=== PATIENT | female | born 1955 | race Caucasian/White ===

== ENCOUNTER 2016-02-08 00:54 | Inpatient (IN) | payer MEDICARE, OTHER ==
[2016-02-08] VITALS (36 sets, daily range): BP systolic 98–150; BP diastolic 56–85; PULSE 70–104; RESP 14–32; TEMP 97.3–98.9; O2SAT 84–96
[~2016-02-08] VITALS: Ht 157.5 cm; Wt 102.3 kg
[~2016-02-08 00:54] MED LIST: ABIL5TAB6 PO; ADVAI100I PO; ALPR-138 PO; APIX2.5T PO; ATOR40TA49 PO; DILA10IN IMPLANPUMP; DUONI NEB; ECOT81TA2 PO; FURO40TA PO; GABA600T PO; HYDRO50 PO; IPRA17I INH; ISOS30 PO; K-TA10TA5 PO; LEVA500T PO; ONDA4 PO; PERC10TA27 PO; PRED5TAB PO; PREG75 PO; PRIS50TA PO; PROM25TA5 PO; PROM6.257 PO; PROT40TA PO; VALA500T PO; Z.0.OXYGENDME NC
[2016-02-08] MEDS: RESP: ALBUTEROL 2.5 MG/IPRATROPIUM 0.5 MG NEB (SCH) INH ×3 (01:08→01:35)
[2016-02-08] MEDS ORDERED: methylPREDNISolone SOD SUCC 125 MG/2 ML VIAL IVP ONE (01:15)
[2016-02-08 01:33] LABS: CHLORIDE 101 MEQ/L (98-107); POTASSIUM 3.7 MEQ/L (3.5-5.1); SODIUM (NA) 143 MEQ/L (136-145)
[2016-02-08 01:34] LABS: AUTOMATED NEUTROPHIL # 7.1 TH/MM3 (1.8-7.7); BASOPHIL # 0.1 TH/MM3 (0-0.2); BASOPHIL % 0.6 % (0.0-2.0); EOSINOPHIL # 0.1 TH/MM3 (0-0.4); HEMATOCRIT 44.8 % (35.0-46.0); HEMO FLAGS DIFF FINAL; LYMPH % 26.3 % (9.0-44.0); LYMPHOCYTE # 2.8 TH/MM3 (1.0-4.8); MEAN CELL VOLUME 84.7 FL (80.0-100.0); MEAN CORPUSCULAR HGB CONC 31.9 % (32.0-36.0); MONO % 5.8 % (0.0-8.0); NEUT % 66.3 % (16.0-70.0); PLATELET COUNT 259 TH/MM3 (150-450); RED BLOOD COUNT 5.28 MIL/MM3 (4.00-5.30); RED CELL DISTRIBUTION WIDTH 15.7 % (11.6-17.2); WHITE BLOOD COUNT 10.7 TH/MM3 (4.0-11.0)
[2016-02-08 01:37] LABS: ANION GAP 11 MEQ/L (5-15); BICARBONATE 31.2 MEQ/L (21.0-32.0); BLOOD UREA NITROGEN 10 MG/DL (7-18)
[2016-02-08 01:40] LABS: ALT (GPT) 43 U/L (10-53); AST (GOT) 34 U/L (15-37); GLOMERULAR FILTRATION RATE 61 ML/MIN (>89)
[2016-02-08 01:41] LABS: TOTAL BILIRUBIN ADULT 0.5 MG/DL (0.2-1.0)
[2016-02-08 01:42] LABS: ALKALINE PHOSPHATASE 94 U/L (45-117)
[2016-02-08 01:48] LABS: BLOOD GAS BASE EXCESS 5.2 mmol/L (-2-2); BLOOD GAS CARBOXYHEMOGLOBIN 6.4 % (0-4); BLOOD GAS HCO3 31 mmol/L (22-26); BLOOD GAS O2 HGB SATURATION 82 % (90-100); BLOOD GAS OXYGEN CONTENT 15.9 Vol % (12.0-20.0); BLOOD GAS PCO2 63 mmHG (38-42); BLOOD GAS PO2 62 mmHG (61-120); BLOOD GAS TOTAL HGB 13.7 G/DL (12.0-16.0); CRITICAL VALUE YES; DRAW SITE LT RADIAL; LITER FLOW 2 L/M; OXYGEN DEVICE NASAL CANNULA; TEMP CORR TO 98.6
[2016-02-08 01:49] LABS: NUMBER OF ARTERIAL PUNCTURES 2; STAT YES; ULNAR PULSE PRESENT
[2016-02-08] MEDS ORDERED: FURO40TA PO (02:07)
[2016-02-08] MEDS ORDERED: ALPR.25 PO (02:07)
[2016-02-08] MEDS ORDERED: PRED5TAB PO (02:07)
[2016-02-08] MEDS ORDERED: HYDR50TA94 PO (02:07)
[2016-02-08] MEDS ORDERED: K-TA10TA PO (02:07)
[2016-02-08] MEDS ORDERED: ZOFR4TAB PO (02:07)
[2016-02-08] MEDS ORDERED: DILAUDID PUMP SQ/IV (02:07)
[2016-02-08] MEDS ORDERED: ADVA115A INH (02:07)
[2016-02-08] MEDS ORDERED: IPRA17I INH (02:07)
[2016-02-08] MEDS ORDERED: PRIS50TA PO (02:07)
[2016-02-08] MEDS ORDERED: PROM25TA5 PO (02:07)
[2016-02-08] MEDS ORDERED: PROM6.256 PO (02:07)
[2016-02-08] MEDS ORDERED: LYRI75CA PO (02:07)
[2016-02-08] MEDS ORDERED: ALBU0.08 NEB (02:07)
[2016-02-08] MEDS ORDERED: VALCYCLOVIR PO (02:07)
[2016-02-08] MEDS ORDERED: [UNRECOGNIZED DRUG - OTHER] NEB (02:07)
[2016-02-08] MEDS ORDERED: B-COINJ IM (02:07)
[2016-02-08] MEDS ORDERED: PROTONIX DR PO (02:07)
[2016-02-08] MEDS ORDERED: ABIL2TAB2 PO (02:07)
[2016-02-08] MEDS ORDERED: PLAV75TA29 PO (02:07)
[2016-02-08] MEDS ORDERED: GABA600T PO (02:07)
[2016-02-08] MEDS ORDERED: PERC10TA27 PO (02:07)
[2016-02-08] MEDS ORDERED: LIPI40TA PO (02:07)
--- NOTE | 2016-02-08 02:44 | PD ---
HPI Chief Complaint: Respiratory Distress Time Seen by Provider: 01:02 Travel History International Travel<30 days: No Contact w/Intl Traveler<30days: No Traveled to known affect area: No History of Present Illness HPI The patient is a 61-year-old female with a history of COPD who continues to smoke one pack a day who complains of increasing respiratory distress, shortness of breath tonight. She called an ambulance. She has a nebulizer machine at home but did not use it before calling an ambulance. She has oxygen at home at 2.5 L. She denies any fever. PFSH Past Medical History Arthritis: Yes (rheumatoid) Asthma: Yes Autoimmune Disease: Yes (Rheumatoid arthritis/fibromyalgia) Blood Disorders: No Anxiety: No Depression: Yes Heart Rhythm Problems: No Cancer: No Cardiac Catheterization: Yes Cardiovascular Problems: Yes (STENTS) High Cholesterol: No Chemotherapy: No Chest Pain: No Congestive Heart Failure: No COPD: Yes Coronary Artery Disease: Yes Diabetes: No Diminished Hearing: No Diverticulitis: Yes Deep Vein Thrombosis: Yes (RLE) Endocrine: No Fibromyalgia: Yes Gastrointestinal Disorders: Yes GERD: Yes Glaucoma: No Genitourinary: No Hepatitis: No Hiatal Hernia: Yes (REPAIRED) Hypertension: Yes Immune Disorder: Yes Implanted Vascular Access Dvce: Yes Medical other: Yes (RA/ FIBROMYALGIA) Musculoskeletal: Yes (OSTEOPENIA ) Neurologic: Yes (ANOXIC BRAIN INJURY R/T MEDS) Psychiatric: Yes Reproductive: No Respiratory: Yes (COPD) Immunizations Current: Yes Radiation Therapy: No Shingles: Yes Sickle Cell Disease: No Sleep Apnea: Yes (cpap) Thyroid Disease: No Ulcer: Yes PNEUMOCCOCAL Vaccine (Year): 1 ?: Not Menopausal: Yes : 1 Para: 1 Past Surgical History Abdominal Surgery: Yes (AHSAN FUNDOPLICATION) AICD: No Body Medical Devices: IMPLANTED dilaudid pain pump to right lower back area Cardiac Surgery: No Coronary Stent: Yes Ear Surgery: No Endocrine Surgery: No Eye Surgery: No Genitourinary Surgery: No Gynecologic Surgery: Yes (HYSTERECTOMY ) Hysterectomy: Yes (1998) Insulin Pump: No Joint Replacement: Yes (LEFT HIP) Neurologic Surgery: No Oral Surgery: Yes (T & A) Pacemaker: No Thoracic Surgery: No Tonsillectomy: Yes ( CHILD) Other Surgery: Yes Social History Alcohol Use: No Tobacco Use: Yes (1.5 PPD) Substance Use: No Allergies-Medications (Allergen,Severity, Reaction): Coded Allergies: Felodipine (Verified Allergy, Severe, 02/08/16) *MDRO Multi-Drug Resistant Organism (Verified Allergy, Mild, 02/08/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 Lopid (Verified Adverse Reaction, Severe, "DISORIENTED", 02/08/16) Morphine (Verified Adverse Reaction, Severe, VOMITING, 02/08/16) Reported Meds & Prescriptions Reported Meds & Active Scripts Active Reported Zofran (Ondansetron HCl) 4 Mg Tab 4 Mg PO Q6HR PRN Xanax (Alprazolam) 0.25 Mg Tab 0.25 Mg PO Q6H PRN Phenergan (Promethazine HCl) 25 Mg Tab 25 Mg PO Q6H PRN Promethazine-Codeine Liq 6.25-10 Mg/5 Ml Syrp 5 Ml PO Q6H PRN Atrovent HFA 12.9 GM Inh (Ipratropium Adger) 17 Mcg/Act Aer 2 Puff INH DAILY PRN [Ipsotropium] 1 Vial NEB PRN Albuterol Neb (Albuterol Sulfate) 2.5 Mg/3 Ml Neb 2.5 Mg NEB Q4HR NEB PRN [Valcyclovir] 500 Mg PO DAILY [Protonix Dr] 40 Mg PO DAILY Pristiq 24 HR (Desvenlafaxine ER 24 HR) 50 Mg Tab 50 Mg PO DAILY Prednisone 5 Mg Tab 5 Mg PO DAILY Percocet (Oxycodone-Acetaminophen) 10-325 mg Tab 1 Tab PO Q4H PRN Lyrica (Pregabalin) 75 Mg Cap 75 Mg PO DAILY Lipitor (Atorvastatin Calcium) 40 Mg Tab 40 Mg PO HS K-Tab (Potassium Chloride) 10 Meq Tab 10 Meq PO DAILY Hydroxyzine HCl 50 Mg Tab 50 Mg PO DAILY Gabapentin 600 Mg Tab 600 Mg PO DAILY Furosemide 40 Mg Tab 40 Mg PO BID PRN [Dilaudid Pump] 5.156 Mg SQ/IV DAILY Plavix (Clopidogrel Bisulfate) 75 Mg Tab 75 Mg PO DAILY Vitamin B-Complex Inj (B-Complex Vitamins Inj) 2-644-9-100-2 Mg/Ml Soln 1 Injection IM MONTHLY Advair Hfa 12 GM Inh (Fluticasone-Salmeterol 12 GM Inh) 115-21 Mcg/Act Aer 2 Puff INH BID Abilify (Aripiprazole) 2 Mg Tab 2 Mg PO DAILY Review of Systems Except as stated in HPI: all other systems reviewed are Neg Physical Exam Narrative GENERAL: The patient is alert but slightly confused. She is in moderate to severe respiratory distress. Her vital signs show heart rate of 104 with respirations 32 and oximetry 84%. SKIN: Warm and dry. HEAD: Atraumatic. Normocephalic. EYES: Pupils equal and round. No scleral icterus. No injection or drainage. ENT: No nasal bleeding or discharge. Mucous membranes pink and moist. NECK: Trachea midline. No JVD. CARDIOVASCULAR: Regular rate and rhythm. No murmur appreciated. RESPIRATORY: No accessory muscle use. Scattered wheezes are heard bilaterally. Breath sounds equal bilaterally. GASTROINTESTINAL: Abdomen soft, non-tender, nondistended. Hepatic and splenic margins not palpable. MUSCULOSKELETAL: No obvious deformities. No clubbing. No cyanosis. No edema. NEUROLOGICAL: Awake and alert. No obvious cranial nerve deficits. Motor grossly within normal limits. Normal speech. PSYCHIATRIC: Appropriate mood and affect; insight and judgment normal. Data Data Last Documented VS Vital Signs Date Time Temp Pulse Resp B/P Pulse Ox O2 Delivery O2 Flow Rate FiO2 02/08/16 02:26 104 28 123/63 94 Nasal Cannula 3 02/08/16 01:00 97.8 Orders Complete Blood Count With Diff (02/08/16 01:02) Comprehensive Metabolic Panel (02/08/16 01:02) B-Type Natriuretic Peptide (02/08/16 01:02) Arterial Blood Gas (Abg) (02/08/16 01:02) Urinalysis - C+S If Indicated (02/08/16 01:02) Iv Access Insert/Monitor (02/08/16 01:02) Electrocardiogram (02/08/16 01:02) Ecg Monitoring (02/08/16 01:02) Oximetry (02/08/16 01:02) Oxygen Administration (02/08/16 01:02) Chest, Pa & Lat (02/08/16 01:02) Sodium Chloride 0.9% Flush (Ns Flush) (02/08/16 01:15) Methylprednisolone So Succ Inj (Solumedr (02/08/16 01:15) Albuterol-Ipratropium Neb (Duoneb Neb) (02/08/16 01:15) Labs Laboratory Tests Test 02/08/16 02/08/16 01:15 01:35 White Blood Count 10.7 TH/MM3 Red Blood Count 5.28 MIL/MM3 Hemoglobin 14.3 GM/DL Hematocrit 44.8 % Mean Corpuscular Volume 84.7 FL Mean Corpuscular Hemoglobin 27.0 PG Mean Corpuscular Hemoglobin 31.9 % Concent Red Cell Distribution Width 15.7 % Platelet Count 259 TH/MM3 Mean Platelet Volume 7.4 FL Neutrophils (%) (Auto) 66.3 % Lymphocytes (%) (Auto) 26.3 % Monocytes (%) (Auto) 5.8 % Eosinophils (%) (Auto) 1.0 % Basophils (%) (Auto) 0.6 % Neutrophils # (Auto) 7.1 TH/MM3 Lymphocytes # (Auto) 2.8 TH/MM3 Monocytes # (Auto) 0.6 TH/MM3 Eosinophils # (Auto) 0.1 TH/MM3 Basophils # (Auto) 0.1 TH/MM3 CBC Comment DIFF FINAL Differential Comment Sodium Level 143 MEQ/L Potassium Level 3.7 MEQ/L Chloride Level 101 MEQ/L Carbon Dioxide Level 31.2 MEQ/L Anion Gap 11 MEQ/L Blood Urea Nitrogen 10 MG/DL Creatinine 0.94 MG/DL Estimat Glomerular Filtration 61 ML/MIN Rate Random Glucose 165 MG/DL Calcium Level 8.3 MG/DL Total Bilirubin 0.5 MG/DL Aspartate Amino Transf 34 U/L (AST/SGOT) Alanine Aminotransferase 43 U/L (ALT/SGPT) Alkaline Phosphatase 94 U/L B-Type Natriuretic Peptide 138 PG/ML Total Protein 6.6 GM/DL Albumin 3.4 GM/DL Blood Gas Puncture Site LT RADIAL Blood Gas Patient Temperature 98.6 Blood Gas HCO3 31 mmol/L Blood Gas Base Excess 5.2 mmol/L Blood Gas Oxygen Saturation 82 % Arterial Blood pH 7.32 Arterial Blood Partial 63 mmHG Pressure CO2 Arterial Blood Partial 62 mmHG Pressure O2 Arterial Blood Oxygen Content 15.9 Vol % Arterial Blood 6.4 % Carboxyhemoglobin Arterial Blood Methemoglobin 1.0 % Blood Gas Hemoglobin 13.7 G/DL Oxygen Delivery Device NASAL CANNULA Blood Gas Liter Flow 2 L/M MDM Medical Decision Making Medical Screen Exam Complete: Yes Emergency Medical Condition: Yes Medical Record Reviewed: Yes Interpretation(s) The chest x-ray shows no acute disease. The blood gases show pH 7.32, CO2 63, PO2 62 with O2 sat 82% on 2 L nasal cannula. These gases were done after the 3 DuoNeb treatments. The EKG shows sinus tachycardia with a rate of 102 with right bundle branch block and left anterior fascicular block. No acute ST elevation is present. Differential Diagnosis Pneumonia, COPD with acute exacerbation, bronchitis, hypoxemia, hypo-/ hyperglycemia, renal insufficiency, congestive heart failure, electrolyte disorder, anemia Narrative Course The patient appears to have COPD with acute exacerbation. It is now 0327 and the patient on 3 L nasal cannula is exhibiting saturations of 92%. I realize that some of the 92% is carboxyhemoglobin and this is a falsely high value. She is sleeping at this time comfortably. Physician Communication Physician Communication I discussed the patient with Dr. Reyes, the patient will be admitted to him here at [place]. Diagnosis Primary Impression: COPD with acute exacerbation Additional Impressions: Hypoxemia Tobacco abuse Admitting Information Admitting Physician Requests: Admit Edgar Toscano MD Feb 08, 2016 02:44
--- NOTE | 2016-02-08 03:00 | RADHPO ---
EXAM DATE/TIME: 02/08/2016 01:59 [place] COMPARISON: CHEST PA & LAT, November 24, 2015, 15:30. INDICATIONS : Short of breath. MEDICAL HISTORY : None. SURGICAL HISTORY : None. ENCOUNTER: Initial ACUITY: 1 day PAIN SCORE: Non-responsive. LOCATION: Bilateral chest FINDINGS: PA and lateral views of the chest demonstrate the lungs to be symmetrically aerated without evidence of mass, infiltrate or effusion. The cardiomediastinal contours are unremarkable. Osseous structure s are intact. CONCLUSION: No acute disease. Vito Diana MD on February 08, 2016 at 2:57 Board Certified Radiologist. This report was verified electronically.
[2016-02-08] MEDS ORDERED: ACETAMINOPHEN 325 MG TAB PO PRN (03:30)
[2016-02-08] MEDS ORDERED: ONDANSETRON HCL 4 MG/2 ML VIAL IV PUSH PRN (03:30)
[2016-02-08] MEDS: RESP: ALBUTEROL 2.5 MG/IPRATROPIUM 0.5 MG NEB (SCH) NEB ×6 (03:38→22:59)
[2016-02-08] MEDS ORDERED: RESP: ALBUTEROL 2.5 MG/IPRATROPIUM 0.5 MG NEB (SCH) INH ONE (05:15)
[2016-02-08 05:47] LABS: BLOOD, URINE NEG (NEG); GLUCOSE,URINE NEG (NEG); KETONE, URINE NEG (NEG); NITRITE,URINE NEG (NEG)
[2016-02-08 05:53] LABS: METHOD OF COLLECTION CLEAN CATCH; URINE COLOR YELLOW (YELLW/STRAW)
[2016-02-08 05:54] LABS: MUCUS URINE MOD /lpf (OCC); SQUAMOUS EPITHELIAL CELL URINE 0-5 /hpf (0-5)
[2016-02-08 05:55] LABS: WBC, URINE 0-2 /hpf (0-5)
[2016-02-08 05:57] LABS: COMMENT (UR) CULT NOT INDICATED; CULTURE IF INDICATED CULT NOT INDICATED
[2016-02-08] MEDS ORDERED: methylPREDNISolone SOD SUCC 125 MG/2 ML VIAL IV PUSH SCH (06:00)
[2016-02-08] MEDS ORDERED: MISCELLANEOUS NURSING INFORMATION XX SCH (07:30)
[2016-02-08] MEDS ORDERED: CHLORHEXIDINE GLUCONATE 2 % 1 PACK (2 CLOTHS) TOP PRN (07:30)
[2016-02-08 07:53] LABS: BLOOD GAS CARBOXYHEMOGLOBIN 3.7 % (0-4); BLOOD GAS HCO3 33 mmol/L (22-26); BLOOD GAS METHEMOGLOBIN 0.7 % (0-2); BLOOD GAS O2 HGB SATURATION 91 % (90-100); BLOOD GAS OXYGEN CONTENT 17.5 Vol % (12.0-20.0); BLOOD GAS PCO2 63 mmHg (38-42); BLOOD GAS PO2 75 mmHg (61-120); BLOOD GAS TOTAL HGB 13.7 G/DL (12.0-16.0)
[2016-02-08 07:54] LABS: CRITICAL VALUE YES; DRAW SITE LT RADIAL; FIO2 40 %; NUMBER OF ARTERIAL PUNCTURES 1; OXYGEN DEVICE BIPAP; STAT NO; ULNAR PULSE PRESENT; VENT SETTINGS IPAP 10/EPAP 5
[2016-02-08] MEDS: AZITHROMYCIN INJ 500 MG in SODIUM CHLOR 0.9% 250 ML INJ 250 ML IV SCH (08:29)
[2016-02-08] MEDS: PIPERACIL-TAZO 4.5 GM PREMIX 100 ML IV SCH ×3 (10:30→20:08)
[2016-02-08] MEDS: methylPREDNISolone SOD SUCC 125 MG/2 ML VIAL IV PUSH SCH ×2 (11:29→19:01)
--- NOTE | 2016-02-08 11:33 | HHI.HP ---
[facility] Primary Care Physician Negro Pretty, PhD, MD Admission Diagnosis COPD with acute exacerbation Diagnoses: (1) Acute on chronic respiratory failure with hypoxia and hypercapnia Diagnosis: Principal (2) Chronic obstructive pulmonary disease with acute exacerbation Diagnosis: Principal (3) Hypertension Diagnosis: Principal (4) Tobacco abuse Diagnosis: Secondary Chief Complaint: Shortness of breath and dyspnea Travel History International Travel<30 Days: No Contact w/Intl Traveler <30 Da: No Traveled to Known Affected Are: No History of Present Illness 61-year-old female rather complex medical history with chronic respiratory failure on home oxygen, chronic obstructive pulmonary disease, chronic tobacco use, hypertension, hyperlipidemia, history myocardial infarction , chronic pain, fibromyalgia who presented to hospital because of shortness of breath and dyspnea. Unable to obtain any information with the patient. She is wearing BiPAP for respiratory support. Minimal information from her with yes and no answers. Apparently last 3 days she has been having shortness of breath and dyspnea which progressively getting worse. She continued to smoke. She was using nebulizer and oxygen at home without any improvement. Patient came to the hospital for evaluation. Patient was found to have acute respiratory failure with hypoxia and hypercapnia. Patient was started on O2 supplementation , nebulizer treatments, Solu-Medrol. Patient without any significant improvement and simply has started on BiPAP for respiratory support. Patient was admitted to the ICU for continued management. Upon evaluating the patient this morning she is still requiring BiPAP for O2 supplementation. Graphic Coordinator has been consulted. Patient did not indicate that she has have any type of chest pain, abdominal pain, nausea, vomiting. She states that she has had a cough with phlegm production over the last 3 days which also has been progressively getting worse. Review of Systems ROS Limitations: Clinical Condition Constitutional: DENIES: Diaphoretic episodes, Fever, Chills Ears, nose, mouth, throat: DENIES: Vertigo, Nasal discharge, Throat pain, Ear Pain, Running Nose, Sinus Pain Respiratory: COMPLAINS OF: Cough, Shortness of breath Cardiovascular: DENIES: Chest pain, Lower Extremity Edema Gastrointestinal: DENIES: Abdominal pain, Black stools, Bloody stools, Constipation, Diarrhea, Nausea, Vomiting Past Family Social History Past Medical History Coronary artery disease status post coronary stenting COPD Diverticula is History of DVT Tobacco abuse Possibly IBS Fibromyalgia History of anoxic brain injury Chronic pain Rheumatoid arthritis History of DVT Depression Avascular necrosis of the hip Hyperlipidemia Hypertension Hypothyroidism Neuropathy Sjogren's syndrome Past Surgical History Hysterectomy Cecilio fundoplication Left hip surgery Pain pump in the right lower back Hysterectomy 1998 Left hip replacement Tonsils/adenoids Reported Medications Reported Meds & Active Scripts Active Reported Zofran (Ondansetron HCl) 4 Mg Tab 4 Mg PO Q6HR PRN Xanax (Alprazolam) 0.25 Mg Tab 0.25 Mg PO Q6H PRN Phenergan (Promethazine HCl) 25 Mg Tab 25 Mg PO Q6H PRN Promethazine-Codeine Liq 6.25-10 Mg/5 Ml Syrp 5 Ml PO Q6H PRN Atrovent HFA 12.9 GM Inh (Ipratropium Floweree) 17 Mcg/Act Aer 2 Puff INH DAILY PRN [Ipsotropium] 1 Vial NEB PRN Albuterol Neb (Albuterol Sulfate) 2.5 Mg/3 Ml Neb 2.5 Mg NEB Q4HR NEB PRN [Valcyclovir] 500 Mg PO DAILY [Protonix Dr] 40 Mg PO DAILY Pristiq 24 HR (Desvenlafaxine ER 24 HR) 50 Mg Tab 50 Mg PO DAILY Prednisone 5 Mg Tab 5 Mg PO DAILY Percocet (Oxycodone-Acetaminophen) 10-325 mg Tab 1 Tab PO Q4H PRN Lyrica (Pregabalin) 75 Mg Cap 75 Mg PO DAILY Lipitor (Atorvastatin Calcium) 40 Mg Tab 40 Mg PO HS K-Tab (Potassium Chloride) 10 Meq Tab 10 Meq PO DAILY Hydroxyzine HCl 50 Mg Tab 50 Mg PO DAILY Gabapentin 600 Mg Tab 600 Mg PO DAILY Furosemide 40 Mg Tab 40 Mg PO BID PRN [Dilaudid Pump] 5.156 Mg SQ/IV DAILY Plavix (Clopidogrel Bisulfate) 75 Mg Tab 75 Mg PO DAILY Vitamin B-Complex Inj (B-Complex Vitamins Inj) 2-107-0-100-2 Mg/Ml Soln 1 Injection IM MONTHLY Advair Hfa 12 GM Inh (Fluticasone-Salmeterol 12 GM Inh) 115-21 Mcg/Act Aer 2 Puff INH BID Abilify (Aripiprazole) 2 Mg Tab 2 Mg PO DAILY Allergies: Coded Allergies: Felodipine (Verified Allergy, Severe, 02/08/16) *MDRO Multi-Drug Resistant Organism (Verified Allergy, Mild, 02/08/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 Lopid (Verified Adverse Reaction, Severe, "DISORIENTED", 02/08/16) Morphine (Verified Adverse Reaction, Severe, VOMITING, 02/08/16) Family History No history of heart problems in the family Social History Continues to smoke 1-1/2 packs a day since she was a teenager, patient denies any alcohol or illicit drugs Physical Exam Vital Signs Vital Signs Date Time Temp Pulse Resp B/P Pulse Ox O2 Delivery O2 Flow Rate FiO2 02/08/16 09:55 94 Venturi Mask 6.00 50 02/08/16 07:40 92 40 02/08/16 07:00 96 14 103/66 88 02/08/16 07:00 Bi-Pap 40 02/08/16 06:30 92 30 02/08/16 06:25 Bi-Pap 30 02/08/16 06:04 98.7 102 24 138/77 89 02/08/16 06:00 97 02/08/16 05:50 87 Venturi Mask 40 02/08/16 05:28 100 20 137/73 96 Aerosol Mask 6 02/08/16 05:00 Venturi Mask 6.00 40 02/08/16 03:38 93 Nasal Cannula 3.00 02/08/16 02:26 104 28 123/63 94 Nasal Cannula 3 02/08/16 01:50 91 Nasal Cannula 2.00 02/08/16 01:15 104 32 107/68 92 Nasal Cannula 2.5 02/08/16 01:00 97.8 104 32 103/75 84 02/08/16 01:00 32 Physical Exam GENERAL: Well-developed, well-nourished, in no acute distress. alert and orientated HEENT: Head is normocephalic without any lesions or masses noted. Facial features are symmetric. Eyes: Pupils equal round reactive to light. Extraocular muscles are intact. Conjunctivae were clear. Patient is wearing BiPAP NECK: Supple without any masses. Trachea midline no deviation. No JVD, no bruits are appreciated CARDIAC: Regular rhythm, regular rate. S1/S2 are heard. No murmurs gallops or rubs. LUNGS: Coarse wheeze noted bilaterally, rhonchi or rales. No use of accessory muscles on inspiration or expiration. ABDOMEN: Soft, nontender. Nondistended. Bowel sounds heard in all 4 quadrants. No organomegaly or masses. Negative rebound, negative guarding EXTREMITIES: 2+ pitting edema noted bilateral lower extremities, pulses are equal bilaterally. No cyanosis or clubbing NEUROLOGY: Mood and affect appear appropriate. Cranial nerves II through XII grossly intact. Muscle strength 5/5 in upper and lower extremities bilaterally. Deep tendon reflexes are 2+ in upper and lower extremities bilaterally. Laboratory Laboratory Tests Test 02/08/16 02/08/16 02/08/16 02/08/16 01:15 01:35 05:25 05:30 White Blood Count 10.7 Red Blood Count 5.28 Hemoglobin 14.3 Hematocrit 44.8 Mean Corpuscular Volume 84.7 Mean Corpuscular Hemoglobin 27.0 Mean Corpuscular Hemoglobin 31.9 Concent Red Cell Distribution Width 15.7 Platelet Count 259 Mean Platelet Volume 7.4 Neutrophils (%) (Auto) 66.3 Lymphocytes (%) (Auto) 26.3 Monocytes (%) (Auto) 5.8 Eosinophils (%) (Auto) 1.0 Basophils (%) (Auto) 0.6 Neutrophils # (Auto) 7.1 Lymphocytes # (Auto) 2.8 Monocytes # (Auto) 0.6 Eosinophils # (Auto) 0.1 Basophils # (Auto) 0.1 CBC Comment DIFF FINAL Differential Comment Sodium Level 143 Potassium Level 3.7 Chloride Level 101 Carbon Dioxide Level 31.2 Anion Gap 11 Blood Urea Nitrogen 10 Creatinine 0.94 Estimat Glomerular Filtration 61 Rate Random Glucose 165 Calcium Level 8.3 Total Bilirubin 0.5 Aspartate Amino Transf 34 (AST/SGOT) Alanine Aminotransferase 43 (ALT/SGPT) Alkaline Phosphatase 94 B-Type Natriuretic Peptide 138 Total Protein 6.6 Albumin 3.4 Blood Gas Puncture Site LT RADIAL Blood Gas Patient Temperature 98.6 Blood Gas HCO3 31 Blood Gas Base Excess 5.2 Blood Gas Oxygen Saturation 82 Arterial Blood pH 7.32 Arterial Blood Partial 63 Pressure CO2 Arterial Blood Partial 62 Pressure O2 Arterial Blood Oxygen Content 15.9 Arterial Blood 6.4 Carboxyhemoglobin Arterial Blood Methemoglobin 1.0 Blood Gas Hemoglobin 13.7 Oxygen Delivery Device NASAL CANNULA Blood Gas Liter Flow 2 Magnesium Level 2.4 Urine Collection Type CLEAN CATCH Urine Color YELLOW Urine Turbidity CLEAR Urine pH 6.0 Urine Specific [place] 1.018 Urine Protein 30 Urine Glucose (UA) NEG Urine Ketones NEG Urine Occult Blood NEG Urine Nitrite NEG Urine Bilirubin NEG Urine Leukocyte Esterase NEG Urine WBC 0-2 Urine Squamous Epithelial 0-5 Cells Urine Amorphous Sediment Urine Hyaline Casts 3-5 Urine Mucus MOD Microscopic Urinalysis Comment CULT NOT INDICATED Test 02/08/16 07:45 Blood Gas Puncture Site LT RADIAL Blood Gas Patient Temperature 37.0 Blood Gas HCO3 33 Blood Gas Base Excess 7.0 Blood Gas Oxygen Saturation 91 Arterial Blood pH 7.34 Arterial Blood Partial 63 Pressure CO2 Arterial Blood Partial 75 Pressure O2 Arterial Blood Oxygen Content 17.5 Arterial Blood 3.7 Carboxyhemoglobin Arterial Blood Methemoglobin 0.7 Blood Gas Hemoglobin 13.7 Oxygen Delivery Device BIPAP Blood Gas Ventilator Setting IPAP 10/EPAP 5 Blood Gas Inspired Oxygen 40 Date/Time Procedure Status Source Growth 02/08/16 10:00 Legionella Antigen Received Urine Random Urine Pending 02/08/16 10:00 Streptococcus pneumoniae Antigen (M Received Urine Random Urine Pending 02/08/16 08:45 Influenza Types A,B Antigen (ELMER) - Final Complete Nasal Washing NEGATIVE FOR FLU A AND B ANTIGEN.... 02/08/16 08:45 Gram Stain Received Sputum Expectorated Sputum Pending 02/08/16 08:45 Sputum Culture Received Sputum Expectorated Sputum Pending Result Diagram: 02/08/16 0115 02/08/16 0115 Imaging Last Impressions Chest X-Ray 02/08/16 0102 Signed Impressions: Service Date/Time: Monday, February 08, 2016 01:59 - CONCLUSION: No acute disease. Vito Diana MD Assessment and Plan Assessment and Plan Acute on chronic hypoxic, hypercapnic respiratory failure secondary to chronic obstructive pulmonary disease in a patient who chronically smokes Continue O2 supplementation maintain O2 sats greater than 92% Currently patient is on BiPAP 15/5/35% Continue Solu-Medrol 60 mg IV every 6 hours Start antibiotics to include Zosyn, Zithromax for possible healthcare associated infection Patient does have history of Pseudomonas and Acinetobacter infections lung infections Continue nebulizer treatments every 4 hours and every 2 hours as needed Obtain sputum culture, influenza testing, Legionella testing, strep pneumonia testing Hypertension, coronary disease, history myocardial infarction Continue home medications History DVT It was indicated in November that the patient was on Eliquis at that time, however there is no indication that she is on that medication now. All studies that have been performed in this hospital do not indicate any documented or objective DVT Chronic pain, fibromyalgia Continue monitor patient's clinical status and resume medications when more clinically improved DVT prevention Subcutaneous heparin Written by Omi Toscano PA-C, acting as scribe for Dr. Galarza on 02/08/16 at 13:00. The documentation accurately reflects the work and decisions performed face-to- face by Dr. Galarza on 02/08/16 at 13:00. Physician Certification 2 Midnight Certification Type: Admission for Inpatient Services Order for Inpatient Services The services are ordered in accordance with Medicare regulations or non- Medicare payer requirements, as applicable. In the case of services not specified as inpatient-only, they are appropriately provided as inpatient services in accordance with the 2-midnight benchmark. Estimated LOS (days): 3 days is the estimated time the patient will need to remain in the hospital, assuming treatment plan goals are met and no additional complications. Post-Hospital Plan: Not yet determined Problem Qualifiers (1) Hypertension: Qualified Code: I15.9 - Secondary hypertension Omi Toscano Feb 08, 2016 11:33 Leticia Galarza MD Feb 08, 2016 13:56
[2016-02-08] MEDS: GABAPENTIN 300 MG CAP PO SCH (12:51)
[2016-02-08] MEDS: POTASSIUM CHLORIDE 10 MEQ CONTROLLED RELEASE TAB PO SCH (12:51)
[2016-02-08] MEDS: PREGABALIN 75 MG CAP PO SCH (12:52)
[2016-02-08] MEDS: ALPRAZolam 0.25 MG TAB PO PRN (12:52)
[2016-02-08] MEDS: PANTOPRAZOLE SOD 40 MG DELAYED RELEASE TAB PO SCH (12:52)
[2016-02-08] MEDS: CLOPIDOGREL 75 MG TAB PO SCH (12:52)
[2016-02-08] MEDS: ARIPiprazole 2 MG TAB PO SCH (13:24)
--- NOTE | 2016-02-08 16:22 | EKG ---
Date Performed: 02/08/2016 Time Performed: 01:24:44 PTAGE: 61 years EKG: Sinus tachycardia Left axis deviation RBBB Possible anteroseptal myocardial infarction-of u ndetermined age. Baseline artifact makes leads V2 to V4 difficult to interpret. Since previous tracin g 11/22/2015, no major change. Abnormal ECG PREVIOUS TRACING : 11/22/2015 19.28 DOCTOR: Jeremiah Diehl Interpretating Date/Time 02/08/2016 16:21:19
[2016-02-08] MEDS: ATORVASTATIN 40 MG TAB PO SCH (20:07)
[2016-02-08] MEDS: BUDESONIDE-FORMOTEROL 80/4.5 MCG INHALER INH SCH (20:07)
[2016-02-09] VITALS (34 sets, daily range): BP systolic 99–147; BP diastolic 52–88; PULSE 66–104; RESP 12–30; TEMP 97.7–98.5; O2SAT 88–96
[2016-02-09] MEDS: methylPREDNISolone SOD SUCC 125 MG/2 ML VIAL IV PUSH SCH ×4 (00:28→18:04)
[2016-02-09] MEDS: SODIUM CHLORIDE 0.9% FLUSH 5 ML FLUSH IVF PRN ×2 (00:28→06:26)
[2016-02-09] MEDS: CHLORHEXIDINE GLUCONATE 2 % 1 PACK (2 CLOTHS) TOP SCH (03:13)
[2016-02-09] MEDS: PIPERACIL-TAZO 4.5 GM PREMIX 100 ML IV SCH ×4 (03:38→21:31)
[2016-02-09] MEDS: RESP: ALBUTEROL 2.5 MG/IPRATROPIUM 0.5 MG NEB (SCH) NEB ×6 (04:20→22:45)
[2016-02-09 05:50] LABS: AUTOMATED NEUTROPHIL # 7.4 TH/MM3 (1.8-7.7); BASOPHIL % 0.1 % (0.0-2.0); HEMO FLAGS DIFF FINAL; LYMPH % 5.2 % (9.0-44.0); LYMPHOCYTE # 0.4 TH/MM3 (1.0-4.8); MEAN CELL VOLUME 85.3 FL (80.0-100.0); MEAN CORPUSCULAR HEMOGLOBIN 27.2 PG (27.0-34.0); MEAN CORPUSCULAR HGB CONC 31.9 % (32.0-36.0); MONO % 3.6 % (0.0-8.0); NEUT % 91.1 % (16.0-70.0); PLATELET COUNT 224 TH/MM3 (150-450); RED BLOOD COUNT 4.81 MIL/MM3 (4.00-5.30); RED CELL DISTRIBUTION WIDTH 15.5 % (11.6-17.2); WHITE BLOOD COUNT 8.1 TH/MM3 (4.0-11.0)
--- NOTE | 2016-02-09 05:55 | MB ---
cc: BABS BRICE M.D. DATE OF CONSULTATION 02/08/2016 REASON FOR CONSULTATION Acute respiratory failure, COPD exacerbation. HISTORY OF PRESENT ILLNESS Mrs. Willingham is a 61-year-old female with known history of severe COPD and obstructive sleep apnea for which she is using C-PAP therapy. The patient presents to the emergency room with increasing shortness of breath, cough small amount of whitish sputum. No fever, no chills, no hemoptysis. No TB or industrial exposure. Her breathing has been getting worse for about 3-4 days now. She denies history of hemoptysis, TB or previous industrial exposure. PAST MEDICAL HISTORY 1. COPD. 2. Previous DVT. 3. Irritable bowel syndrome. 4. Fibromyalgia. 5. Hypothyroidism. 6. Hypertension. 7. Hyperlipidemia. 8. Sj gren's syndrome. 9. Peripheral neuropathy. 10. Avascular necrosis of the hip. 11. Coronary artery disease, status post stent. PAST SURGICAL HISTORY 1. She had a previous left hip replacement. 2. T&A as a child. Hysterectomy. Fundoplication ALLERGIES FELODIPINE. LOPID. MORPHINE. MEDICATIONS 1. Xanax as needed. 2. Phenergan as needed. 3. Promethazine as needed. 4. Atrovent nebulizer. 5. Albuterol nebulizer. 6. Protonix. 7. Prestiq. 8. Prednisone. 9. Presently on IV steroids. 10. Percocet. 11. Lyrica. 12. Lipitor. 13. Hydroxyzine. 14. Gabapentin. 15. Lasix. 16. Plavix. 17. Advair twice daily. 18. Albuterol p.r.n. at home. FAMILY HISTORY Noncontributory. SYSTEMS REVIEW A 12-point review of systems as per HPI and Past History, otherwise negative. PHYSICAL EXAMINATION General: On the exam the patient is alert. Vital Signs: Temperature is 98, pulse 90, respirations 24, blood pressure 130/70, oxygen saturation 90%. HEENT: Exam unremarkable. Eyes without icterus. Neck: Without adenopathy or thyroid enlargement. Central trachea. Chest: Scattered rhonchi bilaterally. Cardiac Exam: PMI distant. S1-S2 audible. 1/6 ejection systolic murmur left sternal border. Abdomen: Obese, lax. Bowel sounds audible. Extremities: No clubbing, cyanosis or edema. Skin: Normal. No lymphadenopathy. LABORATORY DATA Chest x-ray - No acute infiltrate identified. Arterial blood gas - pH 7.34, pCO2 63, pO2 75. Sodium 143, potassium 3.9, BUN 10, creatinine 0.9. White count 10,000, hemoglobin 14, hematocrit 44. IMPRESSION 1. Acute on chronic respiratory failure. 2. Chronic obstructive pulmonary disease. 3. Obstructive sleep apnea. 4. Hypertension. 5. Hyperlipidemia. 6. Avascular necrosis of hip. 7. Rheumatoid arthritis. 8. Tobacco abuse. PLAN 1. The patient will be continued on oxygen therapy, bronchodilator therapy, BiPAP when sleeping will be given as well. 2. Her course will be followed in the Intensive Care setting and depending on progress, proceed accordingly. I do thank you for asking to partake in Mrs. Willingham's care. Sincerely, Babs Brice MD WWW/[facility] /3:49 PM /5:41 AM
[2016-02-09 05:58] LABS: POTASSIUM 4.1 MEQ/L (3.5-5.1)
[2016-02-09 06:01] LABS: BICARBONATE 32.8 MEQ/L (21.0-32.0); MAGNESIUM 2.6 MG/DL (1.5-2.5)
[2016-02-09] MEDS: AZITHROMYCIN INJ 500 MG in SODIUM CHLOR 0.9% 250 ML INJ 250 ML IV SCH (08:04)
[2016-02-09] MEDS: PANTOPRAZOLE SOD 40 MG DELAYED RELEASE TAB PO SCH (08:05)
[2016-02-09] MEDS: BUDESONIDE-FORMOTEROL 80/4.5 MCG INHALER INH SCH ×2 (08:05→21:31)
[2016-02-09] MEDS: GABAPENTIN 300 MG CAP PO SCH (08:05)
[2016-02-09] MEDS: CLOPIDOGREL 75 MG TAB PO SCH (08:05)
[2016-02-09] MEDS: ARIPiprazole 2 MG TAB PO SCH (08:05)
[2016-02-09] MEDS: POTASSIUM CHLORIDE 10 MEQ CONTROLLED RELEASE TAB PO SCH (08:05)
[2016-02-09] MEDS: PREGABALIN 75 MG CAP PO SCH (08:05)
[2016-02-09] MEDS: ALPRAZolam 0.25 MG TAB PO PRN ×3 (08:14→22:58)
[2016-02-09] MEDS ORDERED: INFLUENZA VIRUS VACCINE (QUADRIVALENT) 0.5 ML SYR IM ONE (10:00)
--- NOTE | 2016-02-09 10:36 | HHI.PR ---
Subjective Remarks Patient seen and examined today with Dr. Thomas, patient states that she is doing much better today. She openly admits that she hasn't been using her medications, oxygen, CPAP as she should at home. She is able to breathe better. She is down to 3 L oxygen. Did require BiPAP overnight. Patient is asking wishing go home. Notified her that that earliest 2448 hours Objective Vitals Vital Signs Date Time Temp Pulse Resp B/P Pulse Ox O2 Delivery O2 Flow Rate FiO2 02/09/16 07:46 88 Nasal Cannula 3.00 02/09/16 06:04 84 25 144/68 92 02/09/16 06:00 80 02/09/16 05:04 72 15 119/63 90 02/09/16 04:17 78 02/09/16 04:12 90 Nasal Cannula 4.00 02/09/16 04:04 98.0 68 24 109/64 90 02/09/16 03:04 66 12 107/58 91 02/09/16 02:04 78 16 112/65 91 02/09/16 02:00 78 02/09/16 01:30 93 35 02/09/16 01:04 74 15 99/62 91 02/09/16 01:00 90 Bi-Pap 35 02/09/16 00:15 Nasal Cannula 4.00 02/09/16 00:04 97.7 76 15 120/69 92 02/09/16 00:00 76 02/08/16 23:04 70 14 113/60 90 02/08/16 23:00 91 35 02/08/16 22:04 82 18 100/59 90 02/08/16 22:00 82 02/08/16 21:10 91 35 02/08/16 21:10 90 Bi-Pap 35 02/08/16 21:04 82 16 102/56 90 02/08/16 20:09 90 Nasal Cannula 4.00 02/08/16 20:00 92 02/08/16 20:00 97.3 88 25 100/64 89 02/08/16 19:20 90 Nasal Cannula 4.00 02/08/16 19:04 78 14 107/65 90 02/08/16 18:04 82 16 126/76 90 02/08/16 18:00 76 02/08/16 17:04 82 17 105/61 94 02/08/16 16:55 90 55 02/08/16 16:04 98.8 78 18 98/60 89 02/08/16 16:00 78 02/08/16 15:04 86 20 112/64 90 02/08/16 14:04 98 23 127/66 88 02/08/16 14:00 96 02/08/16 13:00 94 31 142/80 91 02/08/16 12:00 97.8 92 27 150/75 92 02/08/16 12:00 84 02/08/16 11:00 92 17 148/80 91 I/O 02/08/16 02/08/16 02/08/16 02/09/16 02/09/16 02/09/16 07:00 15:00 23:00 07:00 15:00 23:00 Intake Total 0 ml 1009 ml 650 ml 340 ml Output Total 200 ml 400 ml 300 ml 300 ml Balance -200 ml 609 ml 350 ml 40 ml Intake Oral 0 ml 480 ml 500 ml 240 ml IV Total 529 ml 150 ml 100 ml Output Urine Total 200 ml 400 ml 300 ml 300 ml # Voids 1 1 1 # Bowel Movements 0 0 0 Result Diagram: 02/09/16 0510 02/09/16 0510 Objective Remarks GENERAL: Well-developed, well-nourished, in mild respiratory distress. alert and orientated HEENT: Head is normocephalic without any lesions or masses noted. Facial features are symmetric. Extraocular muscles are intact. Conjunctivae were clear. NECK: Supple without any masses. Trachea midline no deviation. No JVD, CARDIAC: Regular rhythm, regular rate. S1/S2 are heard. No murmurs gallops or rubs. LUNGS: Significant coarse wheeze noted throughout the lungs. Patient is very short of breath and able to speak full sentences. No rhonchi or rales. No use of accessory muscles on inspiration or expiration. ABDOMEN: Soft, nontender. Nondistended. Bowel sounds heard in all 4 quadrants. No organomegaly or masses. Negative rebound, negative guarding EXTREMITIES: No edema, pulses are equal bilaterally. No cyanosis or clubbing NEUROLOGY: Mood and affect appear appropriate. Cranial nerves II through XII grossly intact. Moving all extremities, speech is clear Urinary Catheter: No Vascular Central Line Catheter: No A/P Assessment and Plan Acute on chronic hypoxic, hypercapnic respiratory failure secondary to chronic obstructive pulmonary disease in a patient who chronically smokes Continue O2 supplementation maintain O2 sats greater than 92% Currently on nasal cannula 3 L. Did require BiPAP 15/5/35% overnight Continue Solu-Medrol 60 mg IV every 6 hours Continue Zosyn, Zithromax for possible healthcare associated infection Patient does have history of Pseudomonas and Acinetobacter infections lung infections Continue nebulizer treatments every 4 hours and every 2 hours as needed Sputum culture is pending, Legionella testing, strep pneumonia testing are negative Patient continues to improve clinically, may be able to transfer out of ICU tomorrow Hypertension, coronary disease, history myocardial infarction Continue home medications History DVT It was indicated in November that the patient was on Eliquis at that time, however there is no indication that she is on that medication now. All studies that have been performed in this hospital do not indicate any documented or objective DVT Chronic pain, fibromyalgia Continue monitor patient's clinical status and resume medications when more clinically improved DVT prevention Subcutaneous heparin Written by Omi Toscano PA-C, acting as scribe for Dr. Thomas on at 0830. The documentation accurately reflects the work and decisions performed face-to- face by Dr. Thomas on 02/09/16 at 0830. Omi Toscano Feb 09, 2016 10:36
[2016-02-09] MEDS: NICOTINE 21 MG/24 HR PATCH TD SCH (16:22)
[2016-02-09] MEDS: ATORVASTATIN 40 MG TAB PO SCH (21:31)
[2016-02-10] VITALS (33 sets, daily range): BP systolic 131–165; BP diastolic 62–84; PULSE 72–100; RESP 13–29; TEMP 97.8–98.4; O2SAT 88–96
[2016-02-10] MEDS: SODIUM CHLORIDE 0.9% FLUSH 5 ML FLUSH IVF PRN ×2 (00:48→19:39)
[2016-02-10] MEDS: methylPREDNISolone SOD SUCC 125 MG/2 ML VIAL IV PUSH SCH ×4 (00:48→18:49)
[2016-02-10] MEDS: CHLORHEXIDINE GLUCONATE 2 % 1 PACK (2 CLOTHS) TOP SCH (00:48)
[2016-02-10] MEDS: PIPERACIL-TAZO 4.5 GM PREMIX 100 ML IV SCH ×4 (02:55→20:17)
[2016-02-10] MEDS: RESP: ALBUTEROL 2.5 MG/IPRATROPIUM 0.5 MG NEB (SCH) NEB ×6 (03:44→23:31)
[2016-02-10] MEDS: AZITHROMYCIN INJ 500 MG in SODIUM CHLOR 0.9% 250 ML INJ 250 ML IV SCH (08:00)
--- NOTE | 2016-02-10 08:39 | HHI.PR ---
Subjective Remarks Follow up respiratory failure. The patient states that she doesn't feel much better today. Still with dyspnea. Reporting pain "all over". Objective Vitals Vital Signs Date Time Temp Pulse Resp B/P Pulse Ox O2 Delivery O2 Flow Rate FiO2 02/10/16 07:16 92 Nasal Cannula 4.00 02/10/16 06:01 86 23 151/80 88 02/10/16 06:00 86 02/10/16 06:00 93 Nasal Cannula 3.00 02/10/16 05:01 72 13 145/74 94 02/10/16 04:20 Bi-Pap 35 02/10/16 04:01 88 18 138/70 95 02/10/16 04:00 88 02/10/16 03:59 95 35 02/10/16 03:01 98.0 76 24 154/76 96 02/10/16 03:00 93 Nasal Cannula 3.00 02/10/16 02:00 80 02/10/16 02:00 74 22 140/76 96 02/10/16 01:09 96 35 02/10/16 01:00 76 24 143/73 96 02/10/16 00:00 84 02/10/16 00:00 92 Bi-Pap 35 02/10/16 00:00 98.4 84 15 142/71 95 02/09/16 23:00 92 Bi-Pap 35 02/09/16 23:00 93 35 02/09/16 22:00 88 24 140/70 92 02/09/16 22:00 88 02/09/16 20:00 85 02/09/16 20:00 98.1 96 21 143/76 93 02/09/16 20:00 90 Nasal Cannula 4.00 02/09/16 19:47 93 Nasal Cannula 4.00 02/09/16 19:05 90 18 140/70 92 02/09/16 18:00 98 23 147/88 91 02/09/16 18:00 94 02/09/16 16:00 98.5 96 26 127/80 90 02/09/16 16:00 90 02/09/16 15:05 88 18 116/63 96 02/09/16 15:05 88 02/09/16 14:05 104 24 132/62 88 02/09/16 14:00 92 02/09/16 13:05 86 20 123/65 96 02/09/16 12:10 92 Nasal Cannula 4.00 02/09/16 12:05 98.5 84 18 119/66 93 02/09/16 12:00 88 02/09/16 11:04 94 30 116/57 90 02/09/16 10:04 92 27 110/61 90 02/09/16 10:00 90 02/09/16 09:04 96 17 119/60 88 I/O 02/09/16 02/09/16 02/09/16 02/10/16 02/10/16 02/10/16 06:59 14:59 22:59 06:59 14:59 22:59 Intake Total 340 ml 990 ml 740 ml 500 ml Output Total 300 ml 550 ml 450 ml 550 ml Balance 40 ml 440 ml 290 ml -50 ml Intake Oral 240 ml 480 ml 620 ml 400 ml IV Total 100 ml 510 ml 120 ml 100 ml Output Urine Total 300 ml 550 ml 450 ml 550 ml # Voids 1 2 2 # Bowel Movements 0 1 0 0 Result Diagram: 02/09/16 0510 02/09/16 0510 Imaging Last Impressions Chest X-Ray 02/08/16 0102 Signed Impressions: Service Date/Time: Monday, February 08, 2016 01:59 - CONCLUSION: No acute disease. Vito Diana MD Objective Remarks General: No acute distress. Heart: Regular rate and rhythm. No murmur. Lungs: Diffuse wheeze. Breathing is nonlabored. Abdomen: Soft, nontender, nondistended. Extremities: No lower extremity edema. Psych: Alert and oriented. Urinary Catheter: No Vascular Central Line Catheter: No A/P Problem List: (1) Acute on chronic respiratory failure with hypoxia and hypercapnia ICD Code: J96.21 Status: Acute (2) Chronic obstructive pulmonary disease with acute exacerbation ICD Code: J44.1 Status: Acute (3) Hypertension ICD Code: I10 Status: Chronic (4) Tobacco abuse ICD Code: Z72.0 Status: Chronic Assessment and Plan 1. Acute on chronic hypoxic, hypercapnic respiratory failure secondary to COPD: Appreciate pulmonology recommendations. Continue supplemental oxygen. Requiring BiPAP overnight. Continue Solu-Medrol, Zosyn, Zithromax. Continue bronchodilators. Sputum cultures pending. 2. Hypertension: Continue furosemide. 3. Coronary artery disease: Patient has history of [place]. Currently asymptomatic. Continue statin. 4. Chronic pain, fibromyalgia: Patient has Dilaudid pain pump. Add [place] as needed. 5. Questionable history of DVT: Patient had previously been documented as being on Eliquis, but is not currently taking that medication. There are no available imaging studies at this hospital to indicate history of DVT. 6. DVT prophylaxis: Subcutaneous heparin. Problem Qualifiers (1) Hypertension: Qualified Code: I15.9 - Secondary hypertension Omi Thomas MD Feb 10, 2016 08:39
[2016-02-10] MEDS: REMOVE OLD PATCH TD SCH (09:00)
[2016-02-10] MEDS: NICOTINE 21 MG/24 HR PATCH TD SCH (09:00)
[2016-02-10] MEDS: BUDESONIDE-FORMOTEROL 80/4.5 MCG INHALER INH SCH ×2 (09:00→19:38)
[2016-02-10] MEDS: ARIPiprazole 2 MG TAB PO SCH (09:35)
[2016-02-10] MEDS: POTASSIUM CHLORIDE 10 MEQ CONTROLLED RELEASE TAB PO SCH (09:36)
[2016-02-10] MEDS: PREGABALIN 75 MG CAP PO SCH (09:36)
[2016-02-10] MEDS: CLOPIDOGREL 75 MG TAB PO SCH (09:36)
[2016-02-10] MEDS: GABAPENTIN 300 MG CAP PO SCH (09:36)
[2016-02-10] MEDS: PANTOPRAZOLE SOD 40 MG DELAYED RELEASE TAB PO SCH (09:36)
[2016-02-10] MEDS: ALPRAZolam 0.25 MG TAB PO PRN ×2 (10:52→21:50)
[2016-02-10] MEDS ORDERED: ALPRAZolam 0.25 MG TAB PO ONE (13:00)
[2016-02-10] MEDS: ATORVASTATIN 40 MG TAB PO SCH (19:38)
[2016-02-10] MEDS: ACETAMINOPHEN/HYDROcodone 325 MG/5 MG TAB PO PRN (20:00)
[2016-02-10] MEDS: FUROSEMIDE 40 MG TAB PO PRN (20:00)
[2016-02-11] VITALS (40 sets, daily range): BP systolic 116–184; BP diastolic 69–113; PULSE 74–126; RESP 13–39; TEMP 97.5–98.7; O2SAT 88–96
[2016-02-11] MEDS: SODIUM CHLORIDE 0.9% FLUSH 5 ML FLUSH IVF PRN (00:31)
[2016-02-11] MEDS: methylPREDNISolone SOD SUCC 125 MG/2 ML VIAL IV PUSH SCH ×5 (00:31→23:26)
[2016-02-11] MEDS: CHLORHEXIDINE GLUCONATE 2 % 1 PACK (2 CLOTHS) TOP SCH (00:34)
[2016-02-11] MEDS: ACETAMINOPHEN/HYDROcodone 325 MG/5 MG TAB PO PRN ×5 (00:46→22:14)
[2016-02-11] MEDS: PIPERACIL-TAZO 4.5 GM PREMIX 100 ML IV SCH ×4 (03:00→20:24)
[2016-02-11] MEDS: RESP: ALBUTEROL 2.5 MG/IPRATROPIUM 0.5 MG NEB (SCH) NEB ×6 (03:52→23:13)
[2016-02-11] MEDS: ALPRAZolam 0.25 MG TAB PO PRN ×3 (04:25→23:27)
[2016-02-11 05:28] LABS: BASOPHIL # 0.1 TH/MM3 (0-0.2); BASOPHIL % 1.2 % (0.0-2.0); HEMATOCRIT 42.8 % (35.0-46.0); HEMO FLAGS DIFF FINAL; LYMPH % 3.4 % (9.0-44.0); LYMPHOCYTE # 0.4 TH/MM3 (1.0-4.8); MEAN CELL VOLUME 86.3 FL (80.0-100.0); MEAN CORPUSCULAR HEMOGLOBIN 27.5 PG (27.0-34.0); MEAN CORPUSCULAR HGB CONC 31.8 % (32.0-36.0); MONO % 1.9 % (0.0-8.0); NEUT % 93.5 % (16.0-70.0); PLATELET COUNT 190 TH/MM3 (150-450); RED BLOOD COUNT 4.95 MIL/MM3 (4.00-5.30); RED CELL DISTRIBUTION WIDTH 15.4 % (11.6-17.2); WHITE BLOOD COUNT 11.7 TH/MM3 (4.0-11.0)
[2016-02-11 05:38] LABS: POTASSIUM 4.3 MEQ/L (3.5-5.1)
[2016-02-11 05:41] LABS: BICARBONATE 31.5 MEQ/L (21.0-32.0)
--- NOTE | 2016-02-11 08:55 | HHI.PR ---
Subjective Remarks Follow up respiratory failure. The patient continues to have wheezing. She is still short of breath. Cough is nonproductive. Patient requesting something to "break it up". Objective Vitals Vital Signs Date Time Temp Pulse Resp B/P Pulse Ox O2 Delivery O2 Flow Rate FiO2 02/11/16 07:15 91 Nasal Cannula 4.00 02/11/16 07:01 96 27 154/86 89 02/11/16 06:01 92 18 156/74 91 02/11/16 06:00 88 02/11/16 05:02 85 16 144/75 94 02/11/16 04:45 92 Bi-Pap 35 02/11/16 04:01 97.5 82 26 135/69 93 02/11/16 04:00 92 Nasal Cannula 4.00 02/11/16 04:00 80 02/11/16 03:50 94 35 02/11/16 03:01 74 16 140/71 94 02/11/16 02:01 76 13 147/75 95 02/11/16 02:00 74 02/11/16 01:12 94 35 02/11/16 01:01 84 16 140/80 96 02/11/16 00:55 92 Bi-Pap 35 02/11/16 00:45 92 Nasal Cannula 4.00 02/11/16 00:00 78 02/11/16 00:00 95 Bi-Pap 35 02/11/16 00:00 98.7 78 25 153/78 94 02/10/16 22:00 84 18 133/80 96 02/10/16 22:00 84 02/10/16 21:53 96 35 02/10/16 21:40 92 Bi-Pap 35 02/10/16 21:00 92 18 131/83 91 02/10/16 20:00 98.0 100 22 165/71 92 02/10/16 20:00 84 02/10/16 20:00 92 Nasal Cannula 6.00 02/10/16 19:26 93 Nasal Cannula 6.00 02/10/16 19:00 96 29 153/84 92 02/10/16 18:00 89 02/10/16 18:00 94 17 154/71 93 02/10/16 17:00 98 21 140/75 93 02/10/16 16:48 97.9 98 24 164/76 93 02/10/16 16:00 92 Nasal Cannula 3.00 02/10/16 16:00 94 02/10/16 16:00 86 16 90 02/10/16 15:00 84 24 152/71 91 02/10/16 14:00 98 26 92 02/10/16 14:00 80 02/10/16 13:00 91 26 132/62 92 02/10/16 12:00 92 Nasal Cannula 3.00 02/10/16 12:00 83 02/10/16 12:00 97.8 83 24 132/62 91 02/10/16 11:00 96 20 142/74 91 02/10/16 10:52 24 02/10/16 10:01 80 29 138/70 91 02/10/16 10:00 97 02/10/16 09:00 85 24 135/65 90 I/O 02/10/16 02/10/16 02/10/16 02/11/16 02/11/16 02/11/16 07:00 15:00 23:00 07:00 15:00 23:00 Intake Total 500 ml 1250 ml 720 ml 220 ml Output Total 550 ml 800 ml 400 ml 400 ml Balance -50 ml 450 ml 320 ml -180 ml Intake Oral 400 ml 900 ml 620 ml 120 ml IV Total 100 ml 350 ml 100 ml 100 ml Output Urine Total 550 ml 800 ml 400 ml 400 ml # Voids 2 2 2 2 # Bowel Movements 0 1 0 0 Result Diagram: 02/11/16 0450 02/11/16 0450 Imaging Last Impressions Chest X-Ray 02/08/16 0102 Signed Impressions: Service Date/Time: Monday, February 08, 2016 01:59 - CONCLUSION: No acute disease. Vito Diana MD Objective Remarks General: No acute distress. Heart: Regular rate and rhythm. No murmur. Lungs: Diffuse wheeze. Breathing is nonlabored. Abdomen: Soft, nontender, nondistended. Extremities: No lower extremity edema. Psych: Alert and oriented. Urinary Catheter: No Vascular Central Line Catheter: No A/P Problem List: (1) Acute on chronic respiratory failure with hypoxia and hypercapnia ICD Code: J96.21 Status: Acute (2) Chronic obstructive pulmonary disease with acute exacerbation ICD Code: J44.1 Status: Acute (3) Hypertension ICD Code: I10 Status: Chronic (4) Tobacco abuse ICD Code: Z72.0 Status: Chronic Assessment and Plan 1. Acute on chronic hypoxic, hypercapnic respiratory failure secondary to COPD: Appreciate pulmonology recommendations. Continue supplemental oxygen. Still requiring BiPAP overnight. Continue Solu-Medrol, Zosyn, Zithromax. Continue bronchodilators. Sputum culture shows heavy growth normal respiratory gwen. Add Mucinex. 2. Hypertension: Continue furosemide. 3. Coronary artery disease: Patient has history of [place]. Currently asymptomatic. Continue statin. 4. Chronic pain, fibromyalgia: Patient has Dilaudid pain pump. Continue [place] as needed. 5. Questionable history of DVT: Patient had previously been documented as being on Eliquis, but is not currently taking that medication. There are no available imaging studies at this hospital to indicate history of DVT. 6. DVT prophylaxis: Subcutaneous heparin. Problem Qualifiers (1) Hypertension: Qualified Code: I15.9 - Secondary hypertension Omi Thomas MD Feb 11, 2016 08:55
[2016-02-11] MEDS: REMOVE OLD PATCH TD SCH (09:00)
[2016-02-11] MEDS: CLOPIDOGREL 75 MG TAB PO SCH (09:10)
[2016-02-11] MEDS: ARIPiprazole 2 MG TAB PO SCH (09:10)
[2016-02-11] MEDS: PANTOPRAZOLE SOD 40 MG DELAYED RELEASE TAB PO SCH (09:10)
[2016-02-11] MEDS: GABAPENTIN 300 MG CAP PO SCH (09:10)
[2016-02-11] MEDS: AZITHROMYCIN INJ 500 MG in SODIUM CHLOR 0.9% 250 ML INJ 250 ML IV SCH (09:10)
[2016-02-11] MEDS: PREGABALIN 75 MG CAP PO SCH (09:10)
[2016-02-11] MEDS: NICOTINE 21 MG/24 HR PATCH TD SCH (09:10)
[2016-02-11] MEDS: POTASSIUM CHLORIDE 10 MEQ CONTROLLED RELEASE TAB PO SCH (09:11)
[2016-02-11] MEDS: BUDESONIDE-FORMOTEROL 80/4.5 MCG INHALER INH SCH ×2 (09:12→20:23)
[2016-02-11] MEDS: guaiFENesin E.R. 600 MG TAB PO SCH ×2 (10:01→20:24)
[2016-02-11] MEDS: FUROSEMIDE 40 MG TAB PO PRN (18:04)
[2016-02-11] MEDS: ATORVASTATIN 40 MG TAB PO SCH (20:24)
--- NOTE | 2016-02-11 21:08 | HHI.PR ---
Subjective Remarks 61 YOWF with COPD,KARELY,RF SOB with any activity Smokes 1 1/2 PPD Uses CPAp at night Objective Vital Signs Vital Signs Date Time Temp Pulse Resp B/P Pulse Ox O2 Delivery O2 Flow Rate FiO2 02/11/16 19:50 91 Nasal Cannula 4.00 02/11/16 17:01 100 17 129/78 91 02/11/16 16:38 98.0 106 20 138/70 91 02/11/16 16:00 96 02/11/16 16:00 91 Nasal Cannula 3.00 02/11/16 15:01 100 18 116/70 93 02/11/16 14:01 106 24 157/88 93 02/11/16 14:00 88 02/11/16 13:20 94 20 161/82 92 02/11/16 13:01 100 17 179/91 91 02/11/16 12:10 106 21 171/83 91 02/11/16 12:01 126 26 184/113 88 02/11/16 12:00 99 Nasal Cannula 4.00 02/11/16 12:00 99 02/11/16 11:01 94 26 148/73 91 02/11/16 10:01 102 29 151/85 94 02/11/16 10:00 83 02/11/16 09:01 100 32 161/90 91 02/11/16 09:00 102 35 90 02/11/16 08:01 90 16 153/77 90 02/11/16 08:00 97.9 90 16 90 02/11/16 08:00 79 02/11/16 08:00 92 Nasal Cannula 4.00 02/11/16 07:15 91 Nasal Cannula 4.00 02/11/16 07:01 96 27 154/86 89 02/11/16 06:01 92 18 156/74 91 02/11/16 06:00 88 02/11/16 05:02 85 16 144/75 94 02/11/16 04:45 92 Bi-Pap 35 02/11/16 04:01 97.5 82 26 135/69 93 02/11/16 04:00 92 Nasal Cannula 4.00 02/11/16 04:00 80 02/11/16 03:50 94 35 02/11/16 03:01 74 16 140/71 94 02/11/16 02:01 76 13 147/75 95 02/11/16 02:00 74 02/11/16 01:12 94 35 02/11/16 01:01 84 16 140/80 96 02/11/16 00:55 92 Bi-Pap 35 02/11/16 00:45 92 Nasal Cannula 4.00 02/11/16 00:00 78 02/11/16 00:00 95 Bi-Pap 35 02/11/16 00:00 98.7 78 25 153/78 94 02/10/16 22:00 84 18 133/80 96 02/10/16 22:00 84 02/10/16 21:53 96 35 02/10/16 21:40 92 Bi-Pap 35 I/O 02/10/16 02/10/16 02/10/16 02/11/16 02/11/16 02/11/16 07:00 15:00 23:00 07:00 15:00 23:00 Intake Total 500 ml 1250 ml 720 ml 220 ml 785 ml Output Total 550 ml 800 ml 400 ml 400 ml 450 ml Balance -50 ml 450 ml 320 ml -180 ml 335 ml Intake Oral 400 ml 900 ml 620 ml 120 ml 460 ml IV Total 100 ml 350 ml 100 ml 100 ml 325 ml Output Urine Total 550 ml 800 ml 400 ml 400 ml 450 ml # Voids 2 2 2 2 2 # Bowel Movements 0 1 0 0 1 Result Diagram: 02/11/1644902/11/16449 Objective Remarks GENERAL: WBWN WF, mild to Mod SOB SKIN: Warm and dry. HEAD: Normocephalic. EYES: No scleral icterus. No injection or drainage. NECK: Supple, trachea midline. No JVD or lymphadenopathy. CARDIOVASCULAR: Regular rate and rhythm without murmurs, gallops, or rubs. RESPIRATORY: Breath sounds equal bilaterally. No accessory muscle use. Exp rhonchi GASTROINTESTINAL: Abdomen soft, non-tender, nondistended. MUSCULOSKELETAL: No cyanosis, or edema. BACK: Nontender without obvious deformity. No CVA tenderness. A/P Assessment and Plan Resp failure COPD KARELY Nicotine use HTN RA PLAN: BIPAP at night Aerosol nebs Symbicort 2 puffs bid Cont Abx Smoking cessation Lane Messer MD Feb 11, 2016 21:08
[2016-02-12] VITALS (33 sets, daily range): BP systolic 136–185; BP diastolic 78–114; PULSE 76–108; RESP 13–40; TEMP 97.3–98.7; O2SAT 88–95
[2016-02-12] MEDS: ACETAMINOPHEN/HYDROcodone 325 MG/5 MG TAB PO PRN ×4 (02:57→20:59)
[2016-02-12] MEDS: PIPERACIL-TAZO 4.5 GM PREMIX 100 ML IV SCH ×4 (03:02→20:33)
[2016-02-12] MEDS: RESP: ALBUTEROL 2.5 MG/IPRATROPIUM 0.5 MG NEB (SCH) NEB ×4 (03:13→20:07)
[2016-02-12] MEDS: CHLORHEXIDINE GLUCONATE 2 % 1 PACK (2 CLOTHS) TOP SCH ×2 (04:00→20:37)
[2016-02-12 05:10] LABS: AUTOMATED NEUTROPHIL # 9.2 TH/MM3 (1.8-7.7); BASOPHIL % 0.1 % (0.0-2.0); EOSINOPHIL % 0.1 % (0.0-4.0); HEMATOCRIT 39.4 % (35.0-46.0); HEMO FLAGS DIFF FINAL; LYMPH % 3.8 % (9.0-44.0); LYMPHOCYTE # 0.4 TH/MM3 (1.0-4.8); MEAN CELL VOLUME 84.9 FL (80.0-100.0); MEAN CORPUSCULAR HGB CONC 32.9 % (32.0-36.0); MONO % 2.1 % (0.0-8.0); NEUT % 93.9 % (16.0-70.0); PLATELET COUNT 193 TH/MM3 (150-450); RED BLOOD COUNT 4.64 MIL/MM3 (4.00-5.30); RED CELL DISTRIBUTION WIDTH 15.2 % (11.6-17.2); WHITE BLOOD COUNT 9.8 TH/MM3 (4.0-11.0)
[2016-02-12 05:20] LABS: POTASSIUM 3.9 MEQ/L (3.5-5.1)
[2016-02-12 05:23] LABS: BICARBONATE 36.3 MEQ/L (21.0-32.0)
[2016-02-12] MEDS: ALPRAZolam 0.25 MG TAB PO PRN ×3 (05:43→20:59)
[2016-02-12] MEDS: methylPREDNISolone SOD SUCC 125 MG/2 ML VIAL IV PUSH SCH ×3 (05:44→18:11)
[2016-02-12] MEDS: RESP: ALBUTEROL 1.25 MG/3 ML NEB (PRN) NEB ×2 (07:43→11:25)
[2016-02-12] MEDS: POTASSIUM CHLORIDE 10 MEQ CONTROLLED RELEASE TAB PO SCH (08:32)
[2016-02-12] MEDS: PREGABALIN 75 MG CAP PO SCH (08:32)
[2016-02-12] MEDS: PANTOPRAZOLE SOD 40 MG DELAYED RELEASE TAB PO SCH (08:32)
[2016-02-12] MEDS: CLOPIDOGREL 75 MG TAB PO SCH (08:32)
[2016-02-12] MEDS: guaiFENesin E.R. 600 MG TAB PO SCH ×2 (08:32→20:34)
[2016-02-12] MEDS: ARIPiprazole 2 MG TAB PO SCH (08:32)
[2016-02-12] MEDS: AZITHROMYCIN INJ 500 MG in SODIUM CHLOR 0.9% 250 ML INJ 250 ML IV SCH (08:33)
[2016-02-12] MEDS: GABAPENTIN 300 MG CAP PO SCH (08:34)
--- NOTE | 2016-02-12 08:40 | HHI.PR ---
Subjective Remarks Follow up respiratory failure. Patient states that she doesn't feel any better today. Still with dyspnea. Upper abdominal tightness/pain from coughing. Complaining of oral thrush and groin rash. Objective Vitals Vital Signs Date Time Temp Pulse Resp B/P Pulse Ox O2 Delivery O2 Flow Rate FiO2 02/12/16 07:45 94 Nasal Cannula 3.00 02/12/16 07:02 76 24 158/97 95 02/12/16 06:02 94 17 176/91 91 02/12/16 06:00 96 02/12/16 05:02 90 24 157/95 91 02/12/16 04:30 92 Nasal Cannula 4.00 Bi-Pap Humidified 02/12/16 04:05 93 35 02/12/16 04:01 97.3 84 32 166/89 94 02/12/16 04:01 84 02/12/16 04:00 95 Bi-Pap 35 02/12/16 03:47 82 24 168/88 95 02/12/16 03:47 82 02/12/16 03:11 95 Nasal Cannula 35 Bi-Pap 02/12/16 03:10 92 Nasal Cannula 3.00 02/12/16 03:01 92 02/12/16 03:01 92 40 182/94 94 02/12/16 02:01 84 13 166/89 94 02/12/16 02:01 84 02/12/16 01:01 88 15 167/78 95 02/12/16 00:25 93 35 02/12/16 00:03 98.7 100 21 166/95 93 02/12/16 00:00 98 02/12/16 00:00 96 Bi-Pap 35 02/11/16 23:01 94 23 176/91 93 02/11/16 22:01 96 19 162/69 91 02/11/16 22:00 100 02/11/16 21:01 104 19 175/85 91 02/11/16 20:01 97.8 92 39 162/86 93 02/11/16 20:00 92 Nasal Cannula 3.00 02/11/16 20:00 92 02/11/16 19:50 91 Nasal Cannula 4.00 02/11/16 19:01 94 22 169/80 92 02/11/16 17:01 100 17 129/78 91 02/11/16 16:38 98.0 106 20 138/70 91 02/11/16 16:00 96 02/11/16 16:00 91 Nasal Cannula 3.00 02/11/16 15:01 100 18 116/70 93 02/11/16 14:01 106 24 157/88 93 02/11/16 14:00 88 02/11/16 13:20 94 20 161/82 92 02/11/16 13:01 100 17 179/91 91 02/11/16 12:10 106 21 171/83 91 02/11/16 12:01 126 26 184/113 88 02/11/16 12:00 99 Nasal Cannula 4.00 02/11/16 12:00 99 02/11/16 11:01 94 26 148/73 91 02/11/16 10:01 102 29 151/85 94 02/11/16 10:00 83 02/11/16 09:01 100 32 161/90 91 02/11/16 09:00 102 35 90 I/O 02/11/16 02/11/16 02/11/16 02/12/16 02/12/16 02/12/16 07:00 15:00 23:00 07:00 15:00 23:00 Intake Total 220 ml 785 ml 485 ml 460 ml Output Total 400 ml 450 ml 700 ml 800 ml Balance -180 ml 335 ml -215 ml -340 ml Intake Oral 120 ml 460 ml 360 ml 360 ml IV Total 100 ml 325 ml 125 ml 100 ml Output Urine Total 400 ml 450 ml 700 ml 800 ml # Voids 2 2 # Bowel Movements 0 1 0 Result Diagram: 02/12/16 0418 02/12/16 0418 Imaging Last Impressions Chest X-Ray 02/08/16 010 Signed Impressions: Service Date/Time: Monday, February 08, 2016 01:59 - CONCLUSION: No acute disease. Vito Diana MD Objective Remarks General: No acute distress. Heart: Regular rate and rhythm. No murmur. Lungs: Diffuse wheeze. Breathing is nonlabored. Abdomen: Soft, nontender, nondistended. Extremities: No lower extremity edema. Psych: Alert and oriented. HEENT: Oral thrush noted. Urinary Catheter: No Vascular Central Line Catheter: No A/P Problem List: (1) Acute on chronic respiratory failure with hypoxia and hypercapnia ICD Code: J96.21 Status: Acute (2) Chronic obstructive pulmonary disease with acute exacerbation ICD Code: J44.1 Status: Acute (3) Hypertension ICD Code: I10 Status: Chronic (4) Tobacco abuse ICD Code: Z72.0 Status: Chronic (5) Oral thrush ICD Code: B37.0 Status: Acute Assessment and Plan 1. Acute on chronic hypoxic, hypercapnic respiratory failure secondary to COPD: Appreciate pulmonology recommendations. Continue supplemental oxygen. Still requiring BiPAP overnight. Continue Solu-Medrol, Zosyn, Zithromax, Mucinex. Continue bronchodilators. Sputum culture shows heavy growth normal respiratory gwen. 2. Hypertension: Continue furosemide. 3. Coronary artery disease: Patient has history of [place]. Currently asymptomatic. Continue statin. 4. Chronic pain, fibromyalgia: Patient has Dilaudid pain pump. Continue [place] as needed. 5. Questionable history of DVT: Patient had previously been documented as being on Eliquis, but is not currently taking that medication. There are no available imaging studies at this hospital to indicate history of DVT. 6. DVT prophylaxis: Subcutaneous heparin. 7. Oral thrush: Nystatin. 8. Rash: Nystatin powder. Problem Qualifiers (1) Hypertension: Qualified Code: I15.9 - Secondary hypertension Omi Thomas MD Feb 12, 2016 08:39
[2016-02-12] MEDS: FUROSEMIDE 40 MG TAB PO PRN (08:46)
[2016-02-12] MEDS: NICOTINE 21 MG/24 HR PATCH TD SCH (09:00)
[2016-02-12] MEDS: REMOVE OLD PATCH TD SCH (09:00)
[2016-02-12] MEDS: FUROSEMIDE 40 MG TAB PO SCH (09:00)
[2016-02-12] MEDS: NYSTATIN 100,000 U/GM PWD 15 GM BTL TOPICAL SCH ×3 (09:00→20:36)
[2016-02-12] MEDS: BUDESONIDE-FORMOTEROL 80/4.5 MCG INHALER INH SCH ×2 (09:00→20:35)
[2016-02-12] MEDS: NYSTATIN SUSP 500,000 U/5 ML CUP SWISH-SWAL SCH ×4 (11:01→20:33)
[2016-02-12] MEDS: ATORVASTATIN 40 MG TAB PO SCH (20:34)
[2016-02-13] VITALS (10 sets, daily range): BP systolic 134–168; BP diastolic 86–113; PULSE 73–103; RESP 18–20; TEMP 96.4–96.9; O2SAT 90–97
[2016-02-13] MEDS: methylPREDNISolone SOD SUCC 125 MG/2 ML VIAL IV PUSH SCH ×5 (01:00→22:55)
[2016-02-13] MEDS: ACETAMINOPHEN/HYDROcodone 325 MG/5 MG TAB PO PRN ×4 (01:00→17:30)
[2016-02-13] MEDS: ALPRAZolam 0.25 MG TAB PO PRN ×3 (03:53→20:44)
[2016-02-13] MEDS: PIPERACIL-TAZO 4.5 GM PREMIX 100 ML IV SCH ×4 (03:55→20:45)
[2016-02-13] MEDS: NYSTATIN 100,000 U/GM PWD 15 GM BTL TOPICAL SCH ×3 (06:17→20:45)
[2016-02-13] MEDS: RESP: ALBUTEROL 2.5 MG/IPRATROPIUM 0.5 MG NEB (SCH) NEB ×4 (07:41→18:27)
[2016-02-13] MEDS: REMOVE OLD PATCH TD SCH (09:00)
[2016-02-13] MEDS: BUDESONIDE-FORMOTEROL 80/4.5 MCG INHALER INH SCH ×2 (09:19→20:44)
[2016-02-13] MEDS: guaiFENesin E.R. 600 MG TAB PO SCH ×2 (09:20→20:44)
[2016-02-13] MEDS: NYSTATIN SUSP 500,000 U/5 ML CUP SWISH-SWAL SCH ×4 (09:20→20:44)
[2016-02-13] MEDS: GABAPENTIN 300 MG CAP PO SCH (09:20)
[2016-02-13] MEDS: CLOPIDOGREL 75 MG TAB PO SCH (09:20)
[2016-02-13] MEDS: PREGABALIN 75 MG CAP PO SCH (09:20)
[2016-02-13] MEDS: PANTOPRAZOLE SOD 40 MG DELAYED RELEASE TAB PO SCH (09:20)
[2016-02-13] MEDS: ARIPiprazole 2 MG TAB PO SCH (09:20)
[2016-02-13] MEDS: NICOTINE 21 MG/24 HR PATCH TD SCH (09:20)
[2016-02-13] MEDS: FUROSEMIDE 40 MG TAB PO SCH (09:20)
[2016-02-13] MEDS: POTASSIUM CHLORIDE 10 MEQ CONTROLLED RELEASE TAB PO SCH (09:20)
--- NOTE | 2016-02-13 13:05 | HHI.PR ---
Subjective Remarks Follow up respiratory failure, COPD, hypertension. Still feeling short of breath. Cough is only minimally productive. No chest pain, nausea, vomiting. Objective Vitals Vital Signs Date Time Temp Pulse Resp B/P Pulse Ox O2 Delivery O2 Flow Rate FiO2 02/13/16 08:26 Nasal Cannula 2.00 02/13/16 08:00 96.4 73 20 168/113 94 02/13/16 07:46 94 Nasal Cannula 2.00 02/13/16 04:00 96.9 85 18 157/86 90 02/13/16 01:30 94 35 02/13/16 00:00 96.4 103 20 134/105 93 02/12/16 21:00 92 3.00 02/12/16 20:39 90 Nasal Cannula 2.00 02/12/16 20:08 90 Nasal Cannula 2.00 02/12/16 20:02 88 Nasal Cannula 1.00 02/12/16 20:00 88 02/12/16 20:00 97.8 88 33 169/92 88 02/12/16 18:12 96 19 180/98 91 02/12/16 18:02 100 17 178/107 93 02/12/16 17:02 104 26 164/89 90 02/12/16 16:08 98 19 172/93 90 02/12/16 16:03 104 26 163/96 88 02/12/16 16:02 98.1 108 25 185/114 88 02/12/16 16:00 90 Nasal Cannula 1.00 02/12/16 14:00 90 Nasal Cannula 1.00 I/O 02/12/16 02/12/16 02/12/16 02/13/16 02/13/16 02/13/16 07:00 15:00 23:00 07:00 15:00 23:00 Intake Total 460 ml 910 ml 605 ml Output Total 800 ml 820 ml 500 ml 450 ml Balance -340 ml 90 ml 105 ml -450 ml Intake Oral 360 ml 460 ml 480 ml IV Total 100 ml 450 ml 125 ml Output Urine Total 800 ml 820 ml 500 ml 450 ml # Voids 4 2 # Bowel Movements 1 1 2 Result Diagram: 02/12/16 0418 02/12/16 0418 Imaging Last Impressions Chest X-Ray 02/08/16101 Signed Impressions: Service Date/Time: Monday, February 08, 2016 01:59 - CONCLUSION: No acute disease. Vito Diana MD Objective Remarks General: Obese female in no acute distress. Heart: Regular rate and rhythm. No murmur. Lungs: Diffuse wheeze. Breathing is nonlabored. Abdomen: Soft, nontender, nondistended. Extremities: No lower extremity edema. Psych: Alert and oriented. Urinary Catheter: No Vascular Central Line Catheter: No A/P Problem List: (1) Acute on chronic respiratory failure with hypoxia and hypercapnia ICD Code: J96.21 Status: Acute (2) Chronic obstructive pulmonary disease with acute exacerbation ICD Code: J44.1 Status: Acute (3) Hypertension ICD Code: I10 Status: Chronic (4) Tobacco abuse ICD Code: Z72.0 Status: Chronic (5) Oral thrush ICD Code: B37.0 Status: Acute Assessment and Plan 1. Acute on chronic hypoxic, hypercapnic respiratory failure secondary to COPD: Appreciate pulmonology recommendations. Continue supplemental oxygen. Still requiring BiPAP overnight. Continue Solu-Medrol, Zosyn, Zithromax, Mucinex. Continue bronchodilators. Sputum culture shows heavy growth normal respiratory gwen. 2. Hypertension: Continue furosemide. BP elevated. Add lisinopril. 3. Coronary artery disease: Patient has history of [place]. Currently asymptomatic. Continue statin. 4. Chronic pain, fibromyalgia: Patient has Dilaudid pain pump. Continue [place] as needed. 5. Questionable history of DVT: Patient had previously been documented as being on Eliquis, but is not currently taking that medication. There are no available imaging studies at this hospital to indicate history of DVT. 6. DVT prophylaxis: Subcutaneous heparin. 7. Oral thrush: Nystatin. 8. Rash: Nystatin powder. Problem Qualifiers (1) Hypertension: Qualified Code: I15.9 - Secondary hypertension Omi Thomas MD Feb 13, 2016 13:05
[2016-02-13] MEDS: LISINOPRIL 5 MG TAB PO SCH (13:21)
--- NOTE | 2016-02-13 18:54 | HHI.PR ---
Subjective Remarks 61 YOWF with COPD,KARELY,RF SOB with any activity Smokes 1 1/2 PPD transferred to floor On 02 two lit Wheezing much improved Objective Vital Signs Vital Signs Date Time Temp Pulse Resp B/P Pulse Ox O2 Delivery O2 Flow Rate FiO2 02/13/16 18:30 91 Nasal Cannula 2.00 02/13/16 12:00 96.9 92 20 160/98 97 02/13/16 08:26 Nasal Cannula 2.00 02/13/16 08:00 96.4 73 20 168/113 94 02/13/16 07:46 94 Nasal Cannula 2.00 02/13/16 04:00 96.9 85 18 157/86 90 02/13/16 01:30 94 35 02/13/16 00:00 96.4 103 20 134/105 93 02/12/16 21:00 92 3.00 02/12/16 20:39 90 Nasal Cannula 2.00 02/12/16 20:08 90 Nasal Cannula 2.00 02/12/16 20:02 88 Nasal Cannula 1.00 02/12/16 20:00 88 02/12/16 20:00 97.8 88 33 169/92 88 I/O 02/12/16 02/12/16 02/12/16 02/13/16 02/13/16 02/13/16 06:59 14:59 22:59 06:59 14:59 22:59 Intake Total 460 ml 910 ml 605 ml 480 ml Output Total 800 ml 820 ml 500 ml 450 ml Balance -340 ml 90 ml 105 ml -450 ml 480 ml Intake Oral 360 ml 460 ml 480 ml 480 ml IV Total 100 ml 450 ml 125 ml Output Urine Total 800 ml 820 ml 500 ml 450 ml # Voids 4 2 3 # Bowel Movements 1 1 2 2 Result Diagram: 02/12/168 02/12/16417 Objective Remarks GENERAL: WBWN WF, mild to Mod SOB SKIN: Warm and dry. HEAD: Normocephalic. EYES: No scleral icterus. No injection or drainage. NECK: Supple, trachea midline. No JVD or lymphadenopathy. CARDIOVASCULAR: Regular rate and rhythm without murmurs, gallops, or rubs. RESPIRATORY: Breath sounds equal bilaterally. No accessory muscle use. Exp rhonchi GASTROINTESTINAL: Abdomen soft, non-tender, nondistended. MUSCULOSKELETAL: No cyanosis, or edema. BACK: Nontender without obvious deformity. No CVA tenderness. A/P Assessment and Plan Resp failure COPD KARELY Nicotine use HTN RA PLAN: BIPAP at night Aerosol nebs Symbicort 2 puffs bid Cont Abx Smoking cessation Supplement 02 to keep sat >90% Lane Messer MD Feb 13, 2016 18:54
[2016-02-13] MEDS: ATORVASTATIN 40 MG TAB PO SCH (20:44)
[2016-02-13] MEDS: RESP: ALBUTEROL 1.25 MG/3 ML NEB (PRN) NEB (22:52)
[2016-02-14] VITALS (10 sets, daily range): BP systolic 144–175; BP diastolic 79–97; PULSE 71–92; RESP 16–24; TEMP 95.9–97.6; O2SAT 92–100
[2016-02-14] MEDS: PIPERACIL-TAZO 4.5 GM PREMIX 100 ML IV SCH ×4 (01:54→21:12)
[2016-02-14] MEDS: CHLORHEXIDINE GLUCONATE 2 % 1 PACK (2 CLOTHS) TOP SCH (02:46)
[2016-02-14] MEDS: methylPREDNISolone SOD SUCC 125 MG/2 ML VIAL IV PUSH SCH ×2 (05:30→12:33)
[2016-02-14] MEDS: NYSTATIN 100,000 U/GM PWD 15 GM BTL TOPICAL SCH ×3 (05:30→21:16)
[2016-02-14] MEDS: RESP: ALBUTEROL 2.5 MG/IPRATROPIUM 0.5 MG NEB (SCH) NEB ×4 (07:46→20:00)
[2016-02-14] MEDS: CLOPIDOGREL 75 MG TAB PO SCH (08:07)
[2016-02-14] MEDS: ALPRAZolam 0.25 MG TAB PO PRN ×2 (08:07→23:46)
[2016-02-14] MEDS: PREGABALIN 75 MG CAP PO SCH (08:07)
[2016-02-14] MEDS: POTASSIUM CHLORIDE 10 MEQ CONTROLLED RELEASE TAB PO SCH (08:07)
[2016-02-14] MEDS: FUROSEMIDE 40 MG TAB PO SCH (08:07)
[2016-02-14] MEDS: PANTOPRAZOLE SOD 40 MG DELAYED RELEASE TAB PO SCH (08:07)
[2016-02-14] MEDS: guaiFENesin E.R. 600 MG TAB PO SCH ×2 (08:07→21:08)
[2016-02-14] MEDS: GABAPENTIN 300 MG CAP PO SCH (08:08)
[2016-02-14] MEDS: LISINOPRIL 5 MG TAB PO SCH (08:08)
[2016-02-14] MEDS: ARIPiprazole 2 MG TAB PO SCH (08:08)
[2016-02-14] MEDS: REMOVE OLD PATCH TD SCH (08:09)
[2016-02-14] MEDS: NICOTINE 21 MG/24 HR PATCH TD SCH (08:09)
[2016-02-14] MEDS: BUDESONIDE-FORMOTEROL 80/4.5 MCG INHALER INH SCH ×2 (08:10→09:00)
[2016-02-14] MEDS: NYSTATIN SUSP 500,000 U/5 ML CUP SWISH-SWAL SCH ×4 (08:10→21:00)
[2016-02-14] MEDS ORDERED: IPRA17I INH (12:46)
[2016-02-14] MEDS ORDERED: ADVAI100I PO (12:46)
[2016-02-14] MEDS ORDERED: ADVA500A INH (12:48)
[2016-02-14] MEDS ORDERED: LISINOPRIL 5 MG TAB PO ONE (15:30)
--- NOTE | 2016-02-14 15:55 | HHI.PR ---
Subjective Remarks Follow up respiratory failure, COPD, hypertension. The patient states that she feels a little bit better today. Still with cough and dyspnea. No chest pain. Objective Vitals Vital Signs Date Time Temp Pulse Resp B/P Pulse Ox O2 Delivery O2 Flow Rate FiO2 02/14/16 12:00 97.0 78 22 168/79 93 02/14/16 08:00 97.6 71 24 175/80 92 02/14/16 08:00 Nasal Cannula 2.00 94 02/14/16 08:00 81 02/14/16 07:48 94 Nasal Cannula 2.00 02/14/16 04:00 97.2 76 20 160/88 98 02/14/16 02:00 92 Nasal Cannula 2.00 02/14/16 01:48 92 35 02/14/16 00:00 96.5 82 16 144/85 100 02/13/16 23:18 92 35 02/13/16 20:24 92 Nasal Cannula 2.00 02/13/16 20:00 99 02/13/16 20:00 96.5 81 20 158/96 95 02/13/16 19:15 Nasal Cannula 2.00 35 02/13/16 18:30 91 Nasal Cannula 2.00 I/O 02/13/16 02/13/16 02/13/16 02/14/16 02/14/16 02/14/16 07:00 15:00 23:00 07:00 15:00 23:00 Intake Total 480 ml 242 ml 605 ml Output Total 450 ml Balance -450 ml 480 ml 242 ml 605 ml Intake Oral 480 ml 480 ml IV Total 242 ml 125 ml Output Urine Total 450 ml # Voids 3 1 2 3 # Bowel Movements 2 2 0 0 Result Diagram: 02/12/16 0418 02/12/16 0418 Imaging Last Impressions Chest X-Ray 02/08/16 010 Signed Impressions: Service Date/Time: Monday, February 08, 2016 01:59 - CONCLUSION: No acute disease. Vito Diana MD Objective Remarks General: Obese female in no acute distress. Heart: Regular rate and rhythm. No murmur. Lungs: Diffuse wheeze. Breathing is nonlabored. Abdomen: Soft, nontender, nondistended. Extremities: No lower extremity edema. Psych: Alert and oriented. Procedures None Urinary Catheter: No A/P Problem List: (1) Acute on chronic respiratory failure with hypoxia and hypercapnia ICD Code: J96.21 Status: Acute (2) Chronic obstructive pulmonary disease with acute exacerbation ICD Code: J44.1 Status: Acute (3) Hypertension ICD Code: I10 Status: Chronic (4) Tobacco abuse ICD Code: Z72.0 Status: Chronic (5) Oral thrush ICD Code: B37.0 Status: Acute Assessment and Plan 1. Acute on chronic hypoxic, hypercapnic respiratory failure secondary to COPD: Appreciate pulmonology recommendations. Continue supplemental oxygen. Still requiring BiPAP overnight. Continue Solu-Medrol, Zosyn, Zithromax, Mucinex. Continue bronchodilators. Sputum culture shows heavy growth normal respiratory gwen. Influenza negative. 2. Hypertension: Continue furosemide. BP still elevated. Increase lisinopril. 3. Coronary artery disease: Patient has history of [place]. Currently asymptomatic. Continue statin. 4. Chronic pain, fibromyalgia: Patient has Dilaudid pain pump. Continue [place] as needed. 5. Questionable history of DVT: Patient had previously been documented as being on Eliquis, but is not currently taking that medication. There are no available imaging studies at this hospital to indicate history of DVT. 6. DVT prophylaxis: Subcutaneous heparin. 7. Oral thrush: Nystatin. 8. Rash: Nystatin powder. Discharge Planning Possible discharge home next 1-2 days. Problem Qualifiers (1) Hypertension: Qualified Code: I15.9 - Secondary hypertension Omi Thomas MD Feb 14, 2016 15:54
[2016-02-14] MEDS: FLUTICASONE SALMETEROL INH SCH ×2 (16:07→21:07)
--- NOTE | 2016-02-14 16:45 | HHI.PR ---
Subjective Remarks 61 YOWF with COPD,KARELY,RF SOB with any activity Smokes 1 1/2 PPD On 02 two lit Wheezing much improved SOB with any activity, even getting out of bed makes her sob This is her base line Objective Vital Signs Vital Signs Date Time Temp Pulse Resp B/P Pulse Ox O2 Delivery O2 Flow Rate FiO2 02/14/16 16:27 97.2 22 167/94 93 02/14/16 12:00 97.0 78 22 168/79 93 02/14/16 08:00 97.6 71 24 175/80 92 02/14/16 08:00 Nasal Cannula 2.00 94 02/14/16 08:00 81 02/14/16 07:48 94 Nasal Cannula 2.00 02/14/16 04:00 97.2 76 20 160/88 98 02/14/16 02:00 92 Nasal Cannula 2.00 02/14/16 01:48 92 35 02/14/16 00:00 96.5 82 16 144/85 100 02/13/16 23:18 92 35 02/13/16 20:24 92 Nasal Cannula 2.00 02/13/16 20:00 99 02/13/16 20:00 96.5 81 20 158/96 95 02/13/16 19:15 Nasal Cannula 2.00 35 02/13/16 18:30 91 Nasal Cannula 2.00 I/O 02/13/16 02/13/16 02/13/16 02/14/16 02/14/16 02/14/16 06:59 14:59 22:59 06:59 14:59 22:59 Intake Total 480 ml 242 ml 605 ml Output Total 450 ml Balance -450 ml 480 ml 242 ml 605 ml Intake Oral 480 ml 480 ml IV Total 242 ml 125 ml Output Urine Total 450 ml # Voids 3 1 2 3 # Bowel Movements 2 2 0 0 Result Diagram: 02/12/1641702/12/16417 Objective Remarks GENERAL: WBWN WF, mild to Mod SOB SKIN: Warm and dry. HEAD: Normocephalic. EYES: No scleral icterus. No injection or drainage. NECK: Supple, trachea midline. No JVD or lymphadenopathy. CARDIOVASCULAR: Regular rate and rhythm without murmurs, gallops, or rubs. RESPIRATORY: Breath sounds equal bilaterally. No accessory muscle use. Exp rhonchi GASTROINTESTINAL: Abdomen soft, non-tender, nondistended. MUSCULOSKELETAL: No cyanosis, or edema. BACK: Nontender without obvious deformity. No CVA tenderness. A/P Assessment and Plan Resp failure COPD KARELY Nicotine use HTN RA PLAN: BIPAP at night Aerosol nebs Symbicort 2 puffs bid Cont Abx Smoking cessation Supplement 02 to keep sat >90% DC Solumedrol Pred [address] Messer MD Feb 14, 2016 16:45
[2016-02-14] MEDS: ACETAMINOPHEN/HYDROcodone 325 MG/5 MG TAB PO PRN ×2 (17:53→22:11)
[2016-02-14] MEDS: predniSONE 20 MG TAB PO SCH (21:08)
[2016-02-14] MEDS: ATORVASTATIN 40 MG TAB PO SCH (21:08)
[2016-02-14] MEDS: RESP: ALBUTEROL 1.25 MG/3 ML NEB (PRN) NEB (23:19)
[2016-02-15] VITALS (10 sets, daily range): BP systolic 124–177; BP diastolic 76–100; PULSE 82–104; RESP 18–22; TEMP 96.2–97.6; O2SAT 92–97
[2016-02-15] MEDS: PIPERACIL-TAZO 4.5 GM PREMIX 100 ML IV SCH ×4 (03:14→21:08)
[2016-02-15] MEDS: CHLORHEXIDINE GLUCONATE 2 % 1 PACK (2 CLOTHS) TOP SCH (03:17)
[2016-02-15] MEDS: NYSTATIN 100,000 U/GM PWD 15 GM BTL TOPICAL SCH ×3 (05:13→21:18)
[2016-02-15 06:49] LABS: AUTOMATED NEUTROPHIL # 11.8 TH/MM3 (1.8-7.7); BASOPHIL % 0.2 % (0.0-2.0); EOSINOPHIL % 0.1 % (0.0-4.0); HEMATOCRIT 45.4 % (35.0-46.0); LYMPH % 6.3 % (9.0-44.0); LYMPHOCYTE # 0.8 TH/MM3 (1.0-4.8); MEAN CELL VOLUME 85.3 FL (80.0-100.0); MEAN CORPUSCULAR HEMOGLOBIN 27.3 PG (27.0-34.0); NEUT % 88.4 % (16.0-70.0); PLATELET COUNT 196 TH/MM3 (150-450); RED BLOOD COUNT 5.32 MIL/MM3 (4.00-5.30); RED CELL DISTRIBUTION WIDTH 15.1 % (11.6-17.2); WHITE BLOOD COUNT 13.3 TH/MM3 (4.0-11.0)
[2016-02-15 06:54] LABS: HEMO FLAGS DIFF FINAL
[2016-02-15 06:58] LABS: POTASSIUM 3.7 MEQ/L (3.5-5.1)
[2016-02-15 07:02] LABS: BICARBONATE 37.5 MEQ/L (21.0-32.0)
[2016-02-15] MEDS: RESP: ALBUTEROL 2.5 MG/IPRATROPIUM 0.5 MG NEB (SCH) NEB ×4 (07:22→20:08)
[2016-02-15] MEDS: REMOVE OLD PATCH TD SCH (09:00)
[2016-02-15] MEDS: NICOTINE 21 MG/24 HR PATCH TD SCH (11:03)
[2016-02-15] MEDS: FLUTICASONE SALMETEROL INH SCH ×2 (11:03→21:08)
[2016-02-15] MEDS: NYSTATIN SUSP 500,000 U/5 ML CUP SWISH-SWAL SCH ×5 (11:04→21:08)
[2016-02-15] MEDS: LISINOPRIL 10 MG TAB PO SCH (11:05)
[2016-02-15] MEDS: predniSONE 20 MG TAB PO SCH ×2 (11:05→21:08)
[2016-02-15] MEDS: POTASSIUM CHLORIDE 10 MEQ CONTROLLED RELEASE TAB PO SCH (11:05)
[2016-02-15] MEDS: PANTOPRAZOLE SOD 40 MG DELAYED RELEASE TAB PO SCH (11:05)
[2016-02-15] MEDS: guaiFENesin E.R. 600 MG TAB PO SCH ×2 (11:05→21:08)
[2016-02-15] MEDS: ACETAMINOPHEN/HYDROcodone 325 MG/5 MG TAB PO PRN (11:05)
[2016-02-15] MEDS: FUROSEMIDE 40 MG TAB PO SCH (11:06)
[2016-02-15] MEDS: CLOPIDOGREL 75 MG TAB PO SCH (11:06)
[2016-02-15] MEDS: ARIPiprazole 2 MG TAB PO SCH (11:06)
[2016-02-15] MEDS: PREGABALIN 75 MG CAP PO SCH (11:06)
[2016-02-15] MEDS: GABAPENTIN 300 MG CAP PO SCH (11:06)
--- NOTE | 2016-02-15 13:31 | HHI.PR ---
Subjective Remarks Follow up COPD exacerbation, respiratory failure. Patient hoping to go home tomorrow. Still short of breath, but states that she feels back to her normal. Still wheezing. Objective Vitals Vital Signs Date Time Temp Pulse Resp B/P Pulse Ox O2 Delivery O2 Flow Rate FiO2 02/15/16 12:06 18 02/15/16 12:06 18 02/15/16 12:00 96.5 96 22 177/99 94 02/15/16 11:57 Nasal Cannula 2.00 35 02/15/16 08:00 96.2 95 22 124/76 93 02/15/16 07:23 92 Nasal Cannula 2.00 02/15/16 04:00 96.8 82 20 144/80 92 02/15/16 00:20 95 35 02/15/16 00:00 97.6 93 22 164/97 95 02/14/16 20:04 95.9 91 22 151/97 95 02/14/16 20:00 92 02/14/16 20:00 94 Nasal Cannula 2.00 02/14/16 20:00 Nasal Cannula 2.00 Humidified 02/14/16 16:27 97.2 22 167/94 93 I/O 02/14/16 02/14/16 02/14/16 02/15/16 02/15/16 02/15/16 07:00 15:00 23:00 07:00 15:00 23:00 Intake Total 605 ml 670 ml 480 ml Balance 605 ml 670 ml 480 ml Intake Oral 480 ml 520 ml 480 ml IV Total 125 ml 150 ml # Voids 2 3 4 4 # Bowel Movements 0 3 2 Result Diagram: 02/15/16 0557 02/15/16 0557 Imaging Last Impressions Chest X-Ray 02/08/16 0102 Signed Impressions: Service Date/Time: Monday, February 08, 2016 01:59 - CONCLUSION: No acute disease. Vito Diana MD Objective Remarks General: Obese female in no acute distress. Heart: Regular rate and rhythm. No murmur. Lungs: Diffuse wheeze. Breathing is nonlabored. Abdomen: Soft, nontender, nondistended. Extremities: No lower extremity edema. Psych: Alert and oriented. Procedures None Urinary Catheter: No Vascular Central Line Catheter: No A/P Problem List: (1) Acute on chronic respiratory failure with hypoxia and hypercapnia ICD Code: J96.21 Status: Acute (2) Chronic obstructive pulmonary disease with acute exacerbation ICD Code: J44.1 Status: Acute (3) Hypertension ICD Code: I10 Status: Chronic (4) Tobacco abuse ICD Code: Z72.0 Status: Chronic (5) Oral thrush ICD Code: B37.0 Status: Acute Assessment and Plan 1. Acute on chronic hypoxic, hypercapnic respiratory failure secondary to COPD: Appreciate pulmonology recommendations. Continue supplemental oxygen. Still requiring BiPAP overnight. Continue Zosyn, Mucinex, prednisone. Continue bronchodilators. Sputum culture shows heavy growth normal respiratory gwen. Influenza negative. 2. Hypertension: Continue furosemide, lisinopril. 3. Coronary artery disease: Patient has history of [place]. Currently asymptomatic. Continue statin. 4. Chronic pain, fibromyalgia: Patient has Dilaudid pain pump. Continue [place] as needed. 5. Questionable history of DVT: Patient had previously been documented as being on Eliquis, but is not currently taking that medication. There are no available imaging studies at this hospital to indicate history of DVT. 6. DVT prophylaxis: Subcutaneous heparin. 7. Oral thrush: Nystatin. 8. Rash: Nystatin powder. Discharge Planning Possible discharge home next 1-2 days. Problem Qualifiers (1) Hypertension: Qualified Code: I15.9 - Secondary hypertension Omi Thomas MD Feb 15, 2016 13:31
--- NOTE | 2016-02-15 14:30 | HHI.PR ---
Subjective Remarks 61 YOWF with COPD,KARELY,RF SOB with any activity Smokes 1 / PPD On 02 two lit Wheezing much improved SOB with any activity, even getting out of bed makes her sob This is her base line Worried will start smoking when she goes home Objective Vital Signs Vital Signs Date Time Temp Pulse Resp B/P Pulse Ox O2 Delivery O2 Flow Rate FiO2 02/15/16 12:06 18 02/15/16 12:06 18 02/15/16 12:00 96.5 96 22 177/99 94 02/15/16 11:57 Nasal Cannula 2.00 35 02/15/16 08:00 96.2 95 22 124/76 93 02/15/16 07:23 92 Nasal Cannula 2.00 02/15/16 04:00 96.8 82 20 144/80 92 02/15/16 00:20 95 35 02/15/16 00:00 97.6 93 22 164/97 95 02/14/16 20:04 95.9 91 22 151/97 95 02/14/16 20:00 92 02/14/16 20:00 94 Nasal Cannula 2.00 02/14/16 20:00 Nasal Cannula 2.00 Humidified 02/14/16 16:27 97.2 22 167/94 93 I/O 02/14/16 02/14/16 02/14/16 02/15/16 02/15/16 02/15/16 06:59 14:59 22:59 06:59 14:59 22:59 Intake Total 605 ml 670 ml 480 ml Balance 605 ml 670 ml 480 ml Intake Oral 480 ml 520 ml 480 ml IV Total 125 ml 150 ml # Voids 2 3 4 4 # Bowel Movements 0 3 2 Result Diagram: 02/15/16 0557 02/15/16 0557 Objective Remarks GENERAL: WBWN WF, mild to Mod SOB SKIN: Warm and dry. HEAD: Normocephalic. EYES: No scleral icterus. No injection or drainage. NECK: Supple, trachea midline. No JVD or lymphadenopathy. CARDIOVASCULAR: Regular rate and rhythm without murmurs, gallops, or rubs. RESPIRATORY: Breath sounds equal bilaterally. No accessory muscle use. Exp rhonchi GASTROINTESTINAL: Abdomen soft, non-tender, nondistended. MUSCULOSKELETAL: No cyanosis, or edema. BACK: Nontender without obvious deformity. No CVA tenderness. A/P Assessment and Plan Resp failure COPD KARELY Nicotine use HTN RA PLAN: BIPAP at night Aerosol nebs Symbicort 2 puffs bid Cont Abx Smoking cessation Supplement 02 to keep sat >90% Pred 20 mg bid. DC Plans underway. Lane Messer MD Feb 15, 2016 14:30
[2016-02-15] MEDS: ATORVASTATIN 40 MG TAB PO SCH (21:07)
[2016-02-15] MEDS: ALPRAZolam 0.25 MG TAB PO PRN (21:14)
[2016-02-16] VITALS: BP 141/87; PULSE 97; RESP 18; TEMP 98.2; O2SAT 92
[2016-02-16] MEDS: PIPERACIL-TAZO 4.5 GM PREMIX 100 ML IV SCH ×3 (02:35→15:14)
[2016-02-16] MEDS: CHLORHEXIDINE GLUCONATE 2 % 1 PACK (2 CLOTHS) TOP SCH (02:36)
[2016-02-16 04:00] VITALS: BP 144/87; PULSE 77; RESP 20; TEMP 97.6; O2SAT 92
[2016-02-16] MEDS: NYSTATIN 100,000 U/GM PWD 15 GM BTL TOPICAL SCH ×2 (05:41→14:00)
[2016-02-16] MEDS: RESP: ALBUTEROL 2.5 MG/IPRATROPIUM 0.5 MG NEB (SCH) NEB ×2 (07:31→12:03)
[2016-02-16 07:34] VITALS: O2SAT 98
[2016-02-16 07:53] VITALS: BP 149/92; PULSE 83; RESP 16; TEMP 96.5; O2SAT 99
[2016-02-16] MEDS: FUROSEMIDE 40 MG TAB PO SCH (08:41)
[2016-02-16] MEDS: PANTOPRAZOLE SOD 40 MG DELAYED RELEASE TAB PO SCH (08:41)
[2016-02-16] MEDS: REMOVE OLD PATCH TD SCH (08:41)
[2016-02-16] MEDS: GABAPENTIN 300 MG CAP PO SCH (08:41)
[2016-02-16] MEDS: guaiFENesin E.R. 600 MG TAB PO SCH (08:41)
[2016-02-16] MEDS: NICOTINE 21 MG/24 HR PATCH TD SCH (08:41)
[2016-02-16] MEDS: ARIPiprazole 2 MG TAB PO SCH (08:41)
[2016-02-16] MEDS: CLOPIDOGREL 75 MG TAB PO SCH (08:41)
[2016-02-16] MEDS: LISINOPRIL 10 MG TAB PO SCH (08:41)
[2016-02-16] MEDS: FLUTICASONE SALMETEROL INH SCH (08:42)
[2016-02-16 08:51] VITALS: PULSE 86
[2016-02-16] MEDS: POTASSIUM CHLORIDE 10 MEQ CONTROLLED RELEASE TAB PO SCH (08:51)
[2016-02-16] MEDS: NYSTATIN SUSP 500,000 U/5 ML CUP SWISH-SWAL SCH ×2 (08:51→12:37)
[2016-02-16] MEDS: predniSONE 20 MG TAB PO SCH (08:51)
[2016-02-16] MEDS: PREGABALIN 75 MG CAP PO SCH (08:51)
[2016-02-16 12:00] VITALS: BP 134/79; PULSE 95; RESP 22; TEMP 97.2; O2SAT 92
[2016-02-16] MEDS: ACETAMINOPHEN/HYDROcodone 325 MG/5 MG TAB PO PRN (12:46)
[2016-02-16] MEDS ORDERED: WALKER WHEELS/F1 MIS (13:27)
--- NOTE | 2016-02-16 14:15 | HHI.DS ---
cc: Negro Pretty PhD Discharge Summary Admission Date Feb 08, 2016 at 03:36 Discharge Date: Feb 16, 2016 Admitting Diagnosis COPD with acute exacerbation (1) Acute on chronic respiratory failure with hypoxia and hypercapnia ICD Code: J96.21 Diagnosis: Principal (2) Chronic obstructive pulmonary disease with acute exacerbation ICD Code: J44.1 Diagnosis: Principal (3) Hypertension ICD Code: I10 Diagnosis: Principal (4) Tobacco abuse ICD Code: Z72.0 Diagnosis: Principal (5) Oral thrush ICD Code: B37.0 Diagnosis: Principal Procedures None Brief History - From Admission 61-year-old female rather complex medical history with chronic respiratory failure on home oxygen, chronic obstructive pulmonary disease, chronic tobacco use, hypertension, hyperlipidemia, history myocardial infarction , chronic pain, fibromyalgia who presented to hospital because of shortness of breath and dyspnea. Unable to obtain any information with the patient. She is wearing BiPAP for respiratory support. Minimal information from her with yes and no answers. Apparently last 3 days she has been having shortness of breath and dyspnea which progressively getting worse. She continued to smoke. She was using nebulizer and oxygen at home without any improvement. Patient came to the hospital for evaluation. Patient was found to have acute respiratory failure with hypoxia and hypercapnia. Patient was started on O2 supplementation , nebulizer treatments, Solu-Medrol. Patient without any significant improvement and simply has started on BiPAP for respiratory support. Patient was admitted to the ICU for continued management. Upon evaluating the patient this morning she is still requiring BiPAP for O2 supplementation. Construction Technology Instructor has been consulted. Patient did not indicate that she has have any type of chest pain, abdominal pain, nausea, vomiting. She states that she has had a cough with phlegm production over the last 3 days which also has been progressively getting worse. CBC/BMP: 02/15/16 0557 02/15/16 0557 Significant Findings Laboratory Tests Test 02/15/16 05:57 White Blood Count 13.3 TH/MM3 (4.0-11.0) Red Blood Count 5.32 MIL/MM3 (4.00-5.30) Neutrophils (%) (Auto) 88.4 % (16.0-70.0) Lymphocytes (%) (Auto) 6.3 % (9.0-44.0) Neutrophils # (Auto) 11.8 TH/MM3 (1.8-7.7) Lymphocytes # (Auto) 0.8 TH/MM3 (1.0-4.8) Chloride Level 95 MEQ/L (98-107) Carbon Dioxide Level 37.5 MEQ/L (21.0-32.0) Blood Urea Nitrogen 21 MG/DL (7-18) Estimat Glomerular Filtration 58 ML/MIN (>89) Rate Random Glucose 255 MG/DL (74-106) Calcium Level 8.0 MG/DL (8.5-10.1) Imaging Last Impressions Chest X-Ray 02/08/16 0102 Signed Impressions: Service Date/Time: Monday, February 08, 2016 01:59 - CONCLUSION: No acute disease. Vito Diana MD PE at Discharge GENERAL: Obese patient in no apparent distress. SKIN: Warm and dry. HEAD: Atraumatic. Normocephalic. CARDIOVASCULAR: Regular rate and rhythm. RESPIRATORY: Wheezing, but good airflow. Patient is able to speak without getting significantly short of breath. O2 via [place]. NEUROLOGICAL: Awake and alert. Motor grossly within normal limits. Normal speech. PSYCHIATRIC: Appropriate mood and affect; insight and judgment normal. Pt update on day of discharge Patient feels better and ready to go home. Patient has nebulizers, oxygen, C Pap at home. Her underground repairer is Dr. York. Hospital Course Patient was admitted for COPD exacerbation and acute on chronic respiratory failure with hypoxia and hypercapnia. The patient had progressively worsening dyspnea and also cough for a few days prior to arrival. Patient uses oxygen at home. Patient required BiPAP initially while here. Patient has been on Zosyn for COPD exacerbation, but chest x-ray showed no acute pneumonia. She does have a history of Pseudomonas and acinetobacter in the past. Legionella and strep pneumo antigen test were negative. Patient's sputum culture showed heavy growth of normal respiratory gwen and influenza test was negative. Patient initially required Solu-Medrol but now is on oral prednisone. She has been using nebulizer treatments, and Mucinex and she is using oxygen via nasal cannula now. The patient was evaluated by pulmonology while hospitalized. Pulmonology advises continuing Symbicort in addition to treatments previously mentioned. Patient was also treated with nystatin for oral thrush and rash. Patient has had a slow recovery, but is now back to baseline. Patient has shortness of breath upon exertion and wheezing on exam but this is her baseline. Patient will be discharged with home health services for nursing and physical therapy. She states she has C-Pap at home and oxygen. States she will quit smoking. Pt Condition on Discharge: Stable Discharge Disposition: Disch w/ Home Health Serv Discharge Time: > 30 minutes Discharge Instructions DIET: Follow Instructions for: Heart Healthy Diet Activities you can perform: Regular-No Restrictions Activities to Avoid: Strenuous Activity Follow up Referrals: Pulmonology - 2-3 Days with Andre York MD New Medications: Azithromycin (Zithromax) 250 Mg Tab 250 MG PO DAILY Infection Days 4 Ref 0 TAB Methylprednisolone Dosepak (Medrol Dosepak) 4 Mg Dspk 4 MG PO DIRECTED Per Pharmacist direction #1 Ref 0 DSPK Walker with Front Wheels (Walker with Front Wheels) 1 Mis Mis 1 EA .ROUTE DIRECTED #1 Ref 0 EA Continued Medications: Albuterol Neb (Albuterol Neb) 2.5 Mg/3 Ml Neb 2.5 MG NEB Q4HR NEB PRN SHORTNESS OF BREATH #60 Ref 0 NEBULE Alprazolam (Xanax) 0.25 Mg Tab 0.25 MG PO Q6H PRN ANXIETY Ref 0 TAB Aripiprazole (Abilify) 2 Mg Tab 2 MG PO DAILY Depression Control #30 Ref 0 TAB Atorvastatin (Lipitor) 40 Mg Tab 40 MG PO HS Cholesterol Management #30 Ref 0 TAB () 12.9 Gm Aero 2 PUFF INH QID PRN SOB/WHEEZING INHALER B-Complex Vitamins Inj (Vitamin B-Complex Inj) 5-982-4-100-2 Mg/Ml Soln 1 INJECTION IM MONTHLY Nutritional Supplement Clopidogrel (Plavix) 75 Mg Tab 75 MG PO DAILY Blood Clot Prevention #30 Ref 0 TAB Desvenlafaxine ER 24 HR (Pristiq 24 HR) 50 Mg Tab 50 MG PO DAILY TAB Fluticasone-Salmeterol 12 GM Inh (Advair Hfa 12 GM Inh) 115-21 Mcg/Act Aer 2 PUFF INH BID #1 Ref 0 INHALER Furosemide (Furosemide) 40 Mg Tab 40 MG PO BID PRN SWELLING #30 Ref 0 TAB Gabapentin (Gabapentin) 600 Mg Tab 600 MG PO DAILY Pain #60 Ref 0 TAB Hydroxyzine HCl (Hydroxyzine HCl) 50 Mg Tab 50 MG PO DAILY Ref 0 TAB Ipratropium HFA 12.9 GM Inh (Atrovent HFA 12.9 GM Inh) 17 Mcg/Act Aer 2 PUFF INH DAILY PRN SHORTNESS OF BREATH #1 Ref 0 INHALER Ondansetron (Zofran) 4 Mg Tab 4 MG PO Q6HR PRN NAUSEA OR VOMITING Ref 0 TAB Oxycodone-Acetaminophen (Percocet) 10-325 mg Tab 1 TAB PO Q4H PRN PAIN Ref 0 TAB Potassium Chloride ER (K-Tab) 10 Meq Tab 10 MEQ PO DAILY Electrolyte Replacement #30 Ref 0 TAB Prednisone (Prednisone) 5 Mg Tab 5 MG PO DAILY COPD Ref 0 TAB Pregabalin (Lyrica) 75 Mg Cap 75 MG PO DAILY #30 Ref 0 CAP Promethazine (Phenergan) 25 Mg Tab 25 MG PO Q6H PRN Nausea/Vomiting Ref 0 TAB Promethazine-Codeine Liq (Promethazine-Codeine Liq) 6.25-10 Mg/5 Ml Syrp 5 ML PO Q6H PRN COUGH AND/OR COLD SYMPTOMS Ref 0 ML ([Dilaudid Pump]) 5.156 MG SQ/IV DAILY Pain Management ([Protonix Dr]) 40 MG PO DAILY GERD ([Valcyclovir]) 500 MG PO DAILY ANTIVIRAL Discontinued Medications: Fluticasone-Salmeterol Inh (Advair Diskus Inh) 500-50 Mcg/Blist Aer 1 PUFF INH BID Rinse mouth after use. #1 Ref 0 INHALER ([Ipsotropium]) 1 VIAL NEB PRN SHORTNESS OF BREATH Additional Information Written by Hortencia Caicedo PA-C acting as scribe for Dr. Galarza on 02/15/15 at 1400. The documentation accurately reflects the work and decisions performed face-to- face by sc Dr. Galarza on 02/15/15 at 1400. Hortencia Caicedo Feb 16, 2016 14:15
--- NOTE | 2016-02-16 14:23 | HHI.FF ---
Face to Face Verification Diagnosis: (1) Chronic obstructive pulmonary disease with acute exacerbation (2) Acute on chronic respiratory failure with hypoxia and hypercapnia Physical Therapy Order: Evaluate and Treat, Improve ambulation, Strength and gait training Home Health Nursing Order: Medical education Signs/symptoms of disease process Oxygen administration education Medication education-adverse effect Nursing assessment with vital signs I have seen patient Amanda Willingham on 02/16/16. My clinical findings support the need for the requested home health care services because: Patient has SOB Deconditioned w/ increased weakness I certify that my clinical findings support that this patient is homebound because: Hx COPD- exertion dyspnea/weakness Unsafe to leave home unassisted Hortencia Caicedo Feb 16, 2016 14:23
[2016-02-16] MEDS ORDERED: MEDR4PAK PO (14:32)
[2016-02-16] MEDS ORDERED: ZITH250T PO (14:32)
[2016-02-16] MEDS: ALPRAZolam 0.25 MG TAB PO PRN (15:14)
[2016-02-16] MEDS: RESP: ALBUTEROL 1.25 MG/3 ML NEB (PRN) NEB (15:58)
--- NOTE | 2016-02-16 17:17 | HHI.PR ---
Subjective Remarks 61 YOWF with COPD,KARELY,RF On 02 two lit Wheezing much improved SOB with any activity, even getting out of bed makes her sob This is her base line Worried will start smoking when she goes home Objective Vital Signs Vital Signs Date Time Temp Pulse Resp B/P Pulse Ox O2 Delivery O2 Flow Rate FiO2 02/16/16 12:00 97.2 95 22 134/79 92 02/16/16 08:51 86 02/16/16 08:51 Nasal Cannula 2.00 35 02/16/16 07:53 96.5 83 16 149/92 99 02/16/16 07:34 98 Nasal Cannula 2.00 02/16/16 04:00 97.6 77 20 144/87 92 02/16/16 00:00 98.2 97 18 141/87 92 02/15/16 23:37 98 02/15/16 20:30 Nasal Cannula 2.00 02/15/16 20:08 93 Nasal Cannula 2.00 02/15/16 20:00 97.5 91 18 130/94 97 I/O 02/15/16 02/15/16 02/15/16 02/16/16 02/16/16 02/16/16 07:00 15:00 23:00 07:00 15:00 23:00 Intake Total 480 ml 650 ml 680 ml 175 ml Output Total 300 ml Balance 480 ml 650 ml 380 ml 175 ml Intake Oral 480 ml 650 ml 680 ml IV Total 175 ml Output Urine Total 300 ml Stool Total 0 ml # Voids 4 5 2 2 # Bowel Movements 2 1 0 1 Result Diagram: 02/15/16 0557 02/15/16 0557 Objective Remarks GENERAL: WBWN WF, mild to Mod SOB SKIN: Warm and dry. HEAD: Normocephalic. EYES: No scleral icterus. No injection or drainage. NECK: Supple, trachea midline. No JVD or lymphadenopathy. CARDIOVASCULAR: Regular rate and rhythm without murmurs, gallops, or rubs. RESPIRATORY: Breath sounds equal bilaterally. No accessory muscle use. Exp rhonchi GASTROINTESTINAL: Abdomen soft, non-tender, nondistended. MUSCULOSKELETAL: No cyanosis, or edema. BACK: Nontender without obvious deformity. No CVA tenderness. A/P Assessment and Plan Resp failure COPD KARELY Nicotine use HTN RA PLAN: BIPAP at night Aerosol nebs Symbicort 2 puffs bid Cont Abx Smoking cessation Supplement 02 to keep sat >90% Pred 20 mg bid. DC Plans underway. for home She will FU with dr.Ailani Messer,Lane Rios MD Feb 16, 2016 17:17
[2016-02-21] MEDS ORDERED: VALT500T PO (09:37)
[2016-02-21] MEDS ORDERED: PROT40TA PO (09:37)
== END 2016-02-16 17:05 | disposition home health service (06) | DRG 189 ==
LOC: PHED 00:54 → PHEDA 03:36 → PHICU 05:43 → PH3A 02-12 22:30
PROVIDERS: ADMIT Family Medicine; ATTEND Family Medicine
PROC: 5A09557 Assistance with Respiratory Ventilation, Greater than 96 Consecutive Hours, Continuous Positive Airway Pressure (ICD-10-PCS; principal; 2016-02-08)
DX: J96.21 Acute and chronic respiratory failure with hypoxia (principal); Z99.81 Dependence on supplemental oxygen; B37.0 Candidal stomatitis; J44.1 Chronic obstructive pulmonary disease with (acute) exacerbation; G62.9 Polyneuropathy, unspecified; I10 Essential (primary) hypertension; J96.22 Acute and chronic respiratory failure with hypercapnia; E78.5 Hyperlipidemia, unspecified; I25.10 Atherosclerotic heart disease of native coronary artery without angina pectoris; M06.9 Rheumatoid arthritis, unspecified; E03.9 Hypothyroidism, unspecified; K21.9 Gastro-esophageal reflux disease without esophagitis; M85.80 Other specified disorders of bone density and structure, unspecified site; G47.33 Obstructive sleep apnea (adult) (pediatric); K58.9 Irritable bowel syndrome, unspecified; F32.9 Major depressive disorder, single episode, unspecified; M35.00 Sjogren syndrome, unspecified; F17.210 Nicotine dependence, cigarettes, uncomplicated; M79.7 Fibromyalgia; G89.29 Other chronic pain; R21 Rash and other nonspecific skin eruption; I25.2 Old myocardial infarction; Z23 Encounter for immunization; Z86.718 Personal history of other venous thrombosis and embolism; Z95.5 Presence of coronary angioplasty implant and graft
CPT/HCPCS: 36600; 71020; 80048; 80053; 81001; 82805; 83735; 83880; 85025; 87070; 87205; 87449; 87641; 87804; 90471; 90686; 93005; 94002; 94003; 94640; 94664; 94667; 94668; 96374; G0008; J0456; J2543; J2930; J7050; J7512; J7613; Q2038

== ENCOUNTER 2016-10-12 19:02 | Inpatient (IN) | payer MEDICARE, OTHER ==
[~2016-10-12 19:02] MED LIST changes: +ABIL2TAB2 PO; -ABIL5TAB6 PO; +ADVA115A INH; -ADVAI100I PO; +ALBU0.08 NEB; -ALPR-138 PO; +ALPR.25 PO; -APIX2.5T PO; -ATOR40TA49 PO; +B-COINJ IM; -DILA10IN IMPLANPUMP; +DILAUDID PUMP SQ/IV; -DUONI NEB; -ECOT81TA2 PO; +HYDR50TA94 PO; -HYDRO50 PO; -ISOS30 PO; +K-TA10TA PO; -K-TA10TA5 PO; -LEVA500T PO; +LIPI40TA PO; +LYRI75CA PO; +MEDR4PAK PO; -ONDA4 PO; +PLAV75TA29 PO; -PREG75 PO; +PROM6.256 PO; -PROM6.257 PO; -VALA500T PO; +VALT500T PO; -Z.0.OXYGENDME NC; +ZITH250T PO; +ZOFR4TAB PO
[2016-10-12 19:22] VITALS: BP 115/75; PULSE 110; RESP 24; TEMP 99.6; O2SAT 84
[2016-10-12] MEDS ORDERED: DILA2TAB2 PO (19:28)
[2016-10-12] MEDS ORDERED: methylPREDNISolone SOD SUCC 125 MG/2 ML VIAL IVP ONE (19:30)
[2016-10-12] MEDS: RESP: ALBUTEROL 2.5 MG/IPRATROPIUM 0.5 MG NEB (SCH) INH ×3 (19:31→19:52)
--- NOTE | 2016-10-12 19:32 | PD ---
HPI Chief Complaint: Respiratory Symptoms Time Seen by Provider: 19:20 Travel History International Travel<30 days: No Contact w/Intl Traveler<30days: No Traveled to known affect area: No History of Present Illness HPI The patient is a 61-year-old female with a history of COPD with chronic respiratory failure and is oxygen dependent on 2-1/2 L of oxygen by nasal cannula who complains of shortness of breath all day today. The patient continues to smoke over one pack a day. She has hypertension, hyperlipidemia, coronary artery disease with history of myocardial infarction and chronic pain and fibromyalgia. She is on a Dilaudid pump, this pump may not be working correctly and this will be checked next week. Dr. Osorio is her optometric technologist and Dr. York is her therapist asst. Dr. Pretty is her primary care physician. She has both Medicare and [facility]. The patient is a full code. The patient answer this question quickly and she was competent to answer this question. PFSH Past Medical History Arthritis: Yes (rheumatoid) Asthma: Yes Autoimmune Disease: Yes (Rheumatoid arthritis/fibromyalgia) Blood Disorders: No Anxiety: No Depression: Yes Heart Rhythm Problems: No Cancer: No Cardiac Catheterization: Yes Cardiovascular Problems: Yes (STENTS) High Cholesterol: No Chemotherapy: No Chest Pain: No Congestive Heart Failure: No COPD: Yes Coronary Artery Disease: Yes Diabetes: No Diminished Hearing: No Diverticulitis: Yes Deep Vein Thrombosis: Yes (RLE) Endocrine: No Fibromyalgia: Yes Gastrointestinal Disorders: Yes GERD: Yes Glaucoma: No Genitourinary: No Hepatitis: No Hiatal Hernia: Yes (REPAIRED) Hypertension: Yes Immune Disorder: Yes Implanted Vascular Access Dvce: Yes Medical other: Yes (RA/ FIBROMYALGIA) Musculoskeletal: Yes (OSTEOPENIA ) Neurologic: Yes (ANOXIC BRAIN INJURY R/T MEDS) Psychiatric: Yes Reproductive: No Respiratory: Yes (COPD) Immunizations Current: Yes Radiation Therapy: No Shingles: Yes Sickle Cell Disease: No Sleep Apnea: Yes (cpap) Thyroid Disease: No Ulcer: Yes PNEUMOCCOCAL Vaccine (Year): 1 Menopausal: Yes : 1 Para: 1 Past Surgical History Abdominal Surgery: Yes (AHSAN FUNDOPLICATION) AICD: No Body Medical Devices: IMPLANTED dilaudid pain pump to right lower back area Cardiac Surgery: No Coronary Stent: Yes Ear Surgery: No Endocrine Surgery: No Eye Surgery: No Genitourinary Surgery: No Gynecologic Surgery: Yes (HYSTERECTOMY ) Hysterectomy: Yes (1998) Insulin Pump: No Joint Replacement: Yes (LEFT HIP) Neurologic Surgery: No Oral Surgery: Yes (T & A) Pacemaker: No Thoracic Surgery: No Tonsillectomy: Yes ( CHILD) Other Surgery: Yes Social History Alcohol Use: No Tobacco Use: Yes (1.5 PPD) Substance Use: No Allergies-Medications (Allergen,Severity, Reaction): Coded Allergies: felodipine (Unverified Allergy, Severe, 10/12/16) gemfibrozil (Unverified Adverse Reaction, Severe, "DISORIENTED", 10/12/16) morphine (Unverified Adverse Reaction, Severe, VOMITING, 10/12/16) *MDRO Multi-Drug Resistant Organism (Verified Adverse Reaction, Mild, VRE , 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 - 01/09/15 Reported Meds & Prescriptions Reported Meds & Active Scripts Active Reported Dilaudid (Hydromorphone HCl) 2 Mg Tab Unknown Dose PO Q4H PRN Valtrex (Valacyclovir HCl) 500 Mg Tab 500 Mg PO DAILY Protonix (Pantoprazole Sodium) 40 Mg Tab 40 Mg PO DAILY Zofran (Ondansetron HCl) 4 Mg Tab 4 Mg PO Q6HR PRN Xanax (Alprazolam) 0.25 Mg Tab 0.25 Mg PO Q6H PRN Promethazine-Codeine Liq 6.25-10 Mg/5 Ml Syrp 5 Ml PO Q6H PRN Atrovent HFA 12.9 GM Inh (Ipratropium [place]) 17 Mcg/Act Aer 2 Puff INH DAILY PRN Albuterol Neb (Albuterol Sulfate) 2.5 Mg/3 Ml Neb 2.5 Mg NEB Q4HR NEB PRN Pristiq 24 HR (Desvenlafaxine ER 24 HR) 50 Mg Tab 50 Mg PO DAILY Prednisone 5 Mg Tab 5 Mg PO DAILY Percocet (Oxycodone-Acetaminophen) 10-325 mg Tab 1 Tab PO Q4H PRN Lyrica (Pregabalin) 75 Mg Cap 75 Mg PO DAILY Lipitor (Atorvastatin Calcium) 40 Mg Tab 40 Mg PO HS K-Tab (Potassium Chloride) 10 Meq Tab 10 Meq PO DAILY Hydroxyzine HCl 50 Mg Tab 50 Mg PO DAILY Gabapentin 600 Mg Tab 600 Mg PO DAILY Furosemide 40 Mg Tab 40 Mg PO BID PRN [Dilaudid Pump] 5.156 Mg SQ/IV DAILY Plavix (Clopidogrel Bisulfate) 75 Mg Tab 75 Mg PO DAILY Vitamin B-Complex Inj (B-Complex Vitamins Inj) 0-906-2-100-2 Mg/Ml Soln 1 Injection IM MONTHLY Advair Hfa 12 GM Inh (Fluticasone-Salmeterol 12 GM Inh) 115-21 Mcg/Act Aer 2 Puff INH BID Abilify (Aripiprazole) 2 Mg Tab 2 Mg PO DAILY Review of Systems Except as stated in HPI: all other systems reviewed are Neg Physical Exam Narrative GENERAL: The patient is obese, sleepy appearing and usually has her eyes closed in slight respiratory distress. Her vital signs show pulse rate of 110 and oximetry of 84% on room air but are otherwise normal. SKIN: Focused skin assessment warm/dry. HEAD: Atraumatic. Normocephalic. EYES: Pupils equal and round. No scleral icterus. No injection or drainage. ENT: No nasal bleeding or discharge. Mucous membranes pink and moist. NECK: Trachea midline. No JVD. CARDIOVASCULAR: Regular rate and rhythm. No murmur appreciated. RESPIRATORY: No accessory muscle use. Bilateral wheezes are heard in all lung larry. Breath sounds equal bilaterally. The patient appears sleepy and does not take deep breaths. GASTROINTESTINAL: Abdomen soft, non-tender, nondistended. Hepatic and splenic margins not palpable. MUSCULOSKELETAL: No obvious deformities. No clubbing. No cyanosis. There is bilateral 3+ lower extremity edema. The skin shows redness on both lower extremities but apparently this is been this way for months. NEUROLOGICAL: Awake and alert. No obvious cranial nerve deficits. Motor grossly within normal limits. Normal speech. PSYCHIATRIC: Appropriate mood and affect; insight and judgment normal. Data Data Last Documented VS Vital Signs Date Time Temp Pulse Resp B/P (MAP) Pulse Ox O2 Delivery O2 Flow Rate FiO2 10/12/16 21:45 110 20 123/64 (83) 90 BiPAP 10/12/16 20:45 35 10/12/16 19:52 4.00 10/12/16 19:22 99.6 Orders Orders Complete Blood Count With Diff (10/12/16 19:20) Comprehensive Metabolic Panel (10/12/16 19:20) Iv Access Insert/Monitor (10/12/16 19:20) Ecg Monitoring (10/12/16 19:20) Oximetry (10/12/16 19:20) Oxygen Administration (10/12/16 19:20) Chest, Pa & Lat (10/12/16 19:20) Methylprednisolone So Succ Inj (Solumedr (10/12/16 19:30) Albuterol-Ipratropium Neb (Duoneb Neb) (10/12/16 19:30) Arterial Blood Gas (Abg) (10/12/16 ) B-Type Natriuretic Peptide (10/12/16 20:44) Furosemide Inj (Lasix Inj) (10/12/16 20:45) Ckmb (Isoenzyme) Profile (10/12/16 20:50) Troponin I (10/12/16 20:50) Admit Order (Ed Use Only) (10/12/16 22:01) Labs Laboratory Tests Test 10/12/16 19:00 10/12/16 19:40 10/12/16 19:55 B-Type Natriuretic Peptide 664 PG/ML White Blood Count 9.4 TH/MM3 Red Blood Count 4.99 MIL/MM3 Hemoglobin 12.2 GM/DL Hematocrit 39.3 % Mean Corpuscular Volume 78.7 FL Mean Corpuscular Hemoglobin 24.4 PG Mean Corpuscular Hemoglobin Concent 31.0 % Red Cell Distribution Width 19.5 % Platelet Count 337 TH/MM3 Mean Platelet Volume 7.7 FL Neutrophils (%) (Auto) 72.1 % Lymphocytes (%) (Auto) 19.2 % Monocytes (%) (Auto) 6.6 % Eosinophils (%) (Auto) 1.2 % Basophils (%) (Auto) 0.9 % Neutrophils # (Auto) 6.8 TH/MM3 Lymphocytes # (Auto) 1.8 TH/MM3 Monocytes # (Auto) 0.6 TH/MM3 Eosinophils # (Auto) 0.1 TH/MM3 Basophils # (Auto) 0.1 TH/MM3 CBC Comment AUTO DIFF Differential Comment AUTO DIFF CONFIRMED Platelet Estimate NORMAL Platelet Morphology Comment NORMAL Ovalocytes 1+ Blood Urea Nitrogen 8 MG/DL Creatinine 0.54 MG/DL Random Glucose 81 MG/DL Total Protein 6.3 GM/DL Albumin 2.9 GM/DL Calcium Level 7.8 MG/DL Alkaline Phosphatase 80 U/L Aspartate Amino Transf (AST/SGOT) 22 U/L Alanine Aminotransferase (ALT/SGPT) 15 U/L Total Bilirubin 0.5 MG/DL Sodium Level 139 MEQ/L Potassium Level 4.0 MEQ/L Chloride Level 101 MEQ/L Carbon Dioxide Level 31.7 MEQ/L Anion Gap 6 MEQ/L Estimat Glomerular Filtration Rate 116 ML/MIN Total Creatine Kinase 40 U/L Troponin I 0.18 NG/ML Blood Gas Puncture Site RT BRACHIAL Blood Gas Patient Temperature 98.6 Blood Gas HCO3 33 mmol/L Blood Gas Base Excess 6.0 mmol/L Blood Gas Oxygen Saturation 87 % Arterial Blood pH 7.28 Arterial Blood Partial Pressure CO2 72 mmHG Arterial Blood Partial Pressure O2 77 mmHG Arterial Blood Oxygen Content 14.4 Vol % Arterial Blood Carboxyhemoglobin 5.7 % Arterial Blood Methemoglobin 1.2 % Blood Gas Hemoglobin 11.7 G/DL Oxygen Delivery Device NASAL CANNULA Blood Gas Liter Flow 2.5 L/M MDM Medical Decision Making Medical Screen Exam Complete: Yes Emergency Medical Condition: Yes Medical Record Reviewed: Yes Interpretation(s) The blood gases on L showed pH 7.23, CO2 72, PO2 77 with carboxyhemoglobin 5.7 and O2 saturation 87%. The CK is normal but the troponin I is 0.18. The chest x-ray shows pulmonary venous congestion but otherwise no significant changes when compared to a February 072015 chest x-ray. The complete metabolic profile shows a calcium of 7.8, total protein 6.3 and albumin 2.9 but is otherwise unremarkable. The BNP is 664. Differential Diagnosis COPD with acute exacerbation, hypoxemia, tobacco abuse, pneumonia, bronchitis, narcotic overdose, electrolyte imbalance, hypercarbia, congestive heart failure , cellulitis Narrative Course When I mention discontinuing smoking, the patient said she did not want to talk about that right now. The patient's appearance of being sleepy is likely due to hypercarbia not narcotic overdose from her Dilaudid pump. The patient appears to have congestive heart failure which is of new onset and elevated troponin I. The BNP is elevated at 664. This apparently is the patient's first episode of congestive heart failure. Plan: The patient will be admitted to [facility] in the [facility]. I discussed the patient with Dr. Jung. I also have previously discussed the patient with Familia rodarte at [facility] and Dr. Bates. Diagnosis Primary Impression: Pulmonary edema, acute, with congestive heart failure Additional Impressions: Hypercarbia Hypoxemia Elevated troponin I level Admitting Information Admitting Physician Requests: Admit Edgar Toscano MD Oct 12, 2016 19:32
[2016-10-12 19:52] VITALS: BP 100/64; PULSE 115; RESP 22; O2SAT 92
[2016-10-12 20:05] LABS: AUTOMATED NEUTROPHIL # 6.8 TH/MM3 (1.8-7.7); BASOPHIL # 0.1 TH/MM3 (0-0.2); BASOPHIL % 0.9 % (0.0-2.0); EOSINOPHIL # 0.1 TH/MM3 (0-0.4); EOSINOPHIL % 1.2 % (0.0-4.0); HEMATOCRIT 39.3 % (35.0-46.0); LYMPH % 19.2 % (9.0-44.0); LYMPHOCYTE # 1.8 TH/MM3 (1.0-4.8); MEAN CELL VOLUME 78.7 FL (80.0-100.0); MEAN CORPUSCULAR HEMOGLOBIN 24.4 PG (27.0-34.0); MONO % 6.6 % (0.0-8.0); NEUT % 72.1 % (16.0-70.0); PLATELET COUNT 337 TH/MM3 (150-450); RED BLOOD COUNT 4.99 MIL/MM3 (4.00-5.30); RED CELL DISTRIBUTION WIDTH 19.5 % (11.6-17.2); WHITE BLOOD COUNT 9.4 TH/MM3 (4.0-11.0)
[2016-10-12 20:09] LABS: HEMO FLAGS AUTO DIFF
[2016-10-12 20:16] LABS: CHLORIDE 101 MEQ/L (98-107); SODIUM (NA) 139 MEQ/L (136-145)
[2016-10-12 20:19] LABS: ANION GAP 6 MEQ/L (5-15); BICARBONATE 31.7 MEQ/L (21.0-32.0)
[2016-10-12 20:20] LABS: BLOOD UREA NITROGEN 8 MG/DL (7-18)
[2016-10-12 20:23] LABS: ALT (GPT) 15 U/L (10-53); AST (GOT) 22 U/L (15-37); GLOMERULAR FILTRATION RATE 116 ML/MIN (>89)
[2016-10-12 20:24] LABS: TOTAL BILIRUBIN ADULT 0.5 MG/DL (0.2-1.0)
[2016-10-12 20:26] LABS: ALKALINE PHOSPHATASE 80 U/L (45-117)
[2016-10-12 20:27] LABS: OVALOCYTES 1+ (NORMAL); PLATELET ESTIMATE SMEAR NORMAL (NORMAL); PLATELET MORPHOLOGY NORMAL (NORMAL); SCAN/DIFF AUTO DIFF CONFIRMED
--- NOTE | 2016-10-12 20:33 | RADRPT ---
EXAM DATE/TIME: 10/12/2016 20:17 [place] COMPARISON: CHEST PA & LAT, February 08, 2016, 1:59. INDICATIONS : Short of breath. MEDICAL HISTORY : Chronic obstructive pulmonary disease. Hypertension SURGICAL HISTORY : Coronary artery stent. ENCOUNTER: Initial ACUITY: 1 day PAIN SCORE: 0/10 LOCATION: Bilateral chest FINDINGS: PA and lateral views of the chest demonstrate the lungs to be symmetrically aerated without evidence of mass, infiltrate or effusion. There is some pulmonary venous congestion. The cardiomediastinal co ntours are unremarkable. Osseous structures are intact. CONCLUSION: Mild pulmonary venous congestion. Otherwise no significant changes compared to the prior study.. Charles León MD on October 12, 2016 at 20:31 Board Certified Radiologist. This report was verified electronically.
[2016-10-12 20:45] VITALS: O2SAT 88
[2016-10-12] MEDS ORDERED: FUROSEMIDE 100 MG/10 ML VIAL IV PUSH ONE (20:45)
[2016-10-12 20:56] LABS: BLOOD GAS CARBOXYHEMOGLOBIN 5.7 % (0-4); BLOOD GAS HCO3 33 mmol/L (22-26); BLOOD GAS METHEMOGLOBIN 1.2 % (0-2); BLOOD GAS O2 HGB SATURATION 87 % (90-100); BLOOD GAS OXYGEN CONTENT 14.4 Vol % (12.0-20.0); BLOOD GAS PCO2 72 mmHG (38-42); BLOOD GAS PO2 77 mmHG (61-120); BLOOD GAS TOTAL HGB 11.7 G/DL (12.0-16.0); CRITICAL VALUE YES; DRAW SITE RT BRACHIAL; LITER FLOW 2.5 L/M; NUMBER OF ARTERIAL PUNCTURES 1; OXYGEN DEVICE NASAL CANNULA; STAT YES; TEMP CORR TO 98.6
[2016-10-12 21:45] VITALS: BP 123/64; PULSE 110; RESP 20; O2SAT 90
[2016-10-12 22:55] VITALS: O2SAT 88
[2016-10-12] MEDS ORDERED: B COMPLEX VITAMINS IM SCH (23:15)
[2016-10-12] MEDS ORDERED: SODIUM CHLOR 0.9% 1000 ML INJ 1,000 ML IV SCH (23:16)
[2016-10-12] MEDS ORDERED: BISACODYL 10 MG SUPP RECTAL PRN (23:30)
[2016-10-12] MEDS ORDERED: MISCELLANEOUS NURSING INFORMATION XX SCH (23:30)
[2016-10-12] MEDS ORDERED: ONDANSETRON HCL 4 MG/2 ML VIAL IV PRN (23:30)
[2016-10-12] MEDS ORDERED: SENNOSIDES 8.6 MG TAB PO PRN (23:30)
[2016-10-12] MEDS ORDERED: LACTULOSE SYRUP 20 GM/30 ML CUP PO PRN (23:30)
[2016-10-12] MEDS ORDERED: MAGNESIUM HYDROXIDE SUSP 30 ML CUP PO PRN (23:30)
[2016-10-12] MEDS ORDERED: CHLORHEXIDINE GLUCONATE 2 % 1 PACK (2 CLOTHS) TOP PRN (23:30)
[2016-10-12] MEDS ORDERED: ACETAMINOPHEN 325 MG TAB PO PRN (23:30)
[2016-10-12] MEDS ORDERED: SODIUM CHLORIDE 0.9% FLUSH 10 ML FLUSH PRN (23:30)
[2016-10-12 23:46] VITALS: BP 134/88; PULSE 77; RESP 20; O2SAT 93
[2016-10-13] VITALS (18 sets, daily range): BP systolic 88–118; BP diastolic 49–67; PULSE 64–82; RESP 14–24; TEMP 98–99; O2SAT 89–95
[2016-10-13 00:53] LABS: BLOOD, URINE NEG (NEG); GLUCOSE,URINE NEG (NEG); KETONE, URINE NEG (NEG); NITRITE,URINE NEG (NEG)
[2016-10-13] MEDS: methylPREDNISolone SOD SUCC 40 MG/1 ML VIAL IV SCH ×5 (00:55→21:29)
[2016-10-13] MEDS: PIPERACIL-TAZO 4.5 GM PREMIX 100 ML IV SCH ×5 (00:55→21:28)
[2016-10-13] MEDS: HEPARIN SODIUM - SQ 10,000 UNITS/ML VIAL SQ SCH ×4 (00:56→21:29)
[2016-10-13 01:00] LABS: METHOD OF COLLECTION CATH; URINE COLOR STRAW (YELLW/STRAW)
[2016-10-13 01:02] LABS: COMMENT (UR) CATH-CULT NOT IND; CULTURE IF INDICATED CATH CULTURE NOT IND; SQUAMOUS EPITHELIAL CELL URINE 0-5 /hpf (0-5)
[2016-10-13] MEDS: RESP: ALBUTEROL 2.5 MG/IPRATROPIUM 0.5 MG NEB (PRN) INH (01:55)
[2016-10-13] MEDS: AZITHROMYCIN INJ 500 MG in SODIUM CHLOR 0.9% 250 ML INJ 250 ML IV SCH ×2 (02:01→21:29)
[2016-10-13] MEDS: RESP: ALBUTEROL 2.5 MG/IPRATROPIUM 0.5 MG NEB (SCH) INH ×3 (03:38→19:49)
[2016-10-13] MEDS ORDERED: Vancomycin Consult Pharmacy 1 EA OTHER SCH (03:45)
[2016-10-13] MEDS ORDERED: VANCOMYCIN INJ 1,000 MG in SODIUM CHLOR 0.9% 250 ML INJ 250 ML IV ONE (03:45)
[2016-10-13] MEDS ORDERED: VANCOMYCIN INJ 2,000 MG in SODIUM CHLORID 0.9% 500 ML INJ 500 ML IV ONE (04:00)
[2016-10-13] MEDS: CHLORHEXIDINE GLUCONATE 2 % 1 PACK (2 CLOTHS) TOP SCH (04:00)
[2016-10-13] MEDS: PANTOPRAZOLE SOD 40 MG DELAYED RELEASE TAB PO SCH (04:02)
--- NOTE | 2016-10-13 04:14 | HHI.HP ---
[facility] Service Critical Care Medicine Primary Care Physician Negro Pretty MD, PhD Admission Diagnosis new-onset congestive heart failure, elevated troponin I Diagnosis: Travel History International Travel<30 Days: No Contact w/Intl Traveler <30 Da: No Traveled to Known Affected Are: No History of Present Illness 61-year-old female with a history of COPD with chronic respiratory failure and is oxygen dependent on 2-1/2 L of oxygen by nasal cannula who continues to smoke presents complaining of shortness of breath all day today. The patient continues to smoke over one pack a day. She has hypertension, hyperlipidemia, coronary artery disease with history of myocardial infarction and chronic pain and fibromyalgia. Per chart documentation she is using Dilaudid pump, and this pump may not be working correctly and this will be checked next week. Dr. Osorio is her marine gear keeper and Dr. York is her compliance field technician. Dr. Pretty is her primary care physician. She has a chronic wound on her left leg since February, when she fell on the cruise ship. Review of Systems Constitutional: DENIES: Diaphoretic episodes, Fatigue, Fever, Weight gain, Weight loss, Chills, Dizziness, Change in appetite, Night Sweats Endocrine: DENIES: Abnorml menstrual pattern, Heat/cold intolerance, Polydipsia , Polyuria, Polyphagia Eyes: DENIES: Blurred vision, Diplopia, Eye inflammation, Eye pain, Vision loss , Photosensitivity, Double Vision Ears, nose, mouth, throat: DENIES: Tinnitus, Hearing loss, Vertigo, Nasal discharge, Oral lesions, Throat pain, Hoarseness, Ear Pain, Running Nose, Epistaxis, Sinus Pain, Toothache, Odynophagia Respiratory: COMPLAINS OF: Shortness of breath, DENIES: Apneas, Cough, Snoring , Wheezing, Hemoptysis, Sputum production Cardiovascular: DENIES: Chest pain, Palpitations, Syncope, Dyspnea on Exertion , PND, Lower Extremity Edema, Orthopnea, Claudication Gastrointestinal: DENIES: Abdominal pain, Black stools, Bloody stools, Constipation, Diarrhea, Nausea, Vomiting, Difficulty Swallowing, Anorexia Genitourinary: DENIES: Abnormal vaginal bleeding, Dysmenorrhea, Dyspareunia, Sexual dysfunction, Urinary frequency, Urinary incontinence, Urgency, Hematuria , Dysuria, Nocturia, Vaginal discharge Musculoskeletal: DENIES: Joint pain, Muscle aches, Stiffness, Joint Swelling, Back pain, Neck pain Integumentary: DENIES: Abnormal pigmentation, Pruritus, Rash, Nail changes, Breast masses, Breast skin changes, Nipple discharge Hematologic/lymphatic: DENIES: Bruising, Lymphadenopathy Immunologic/allergic: DENIES: Eczema, Urticaria Neurologic: DENIES: Abnormal gait, Headache, Localized weakness, Paresthesias, Seizures, Speech Problems, Tremor, Poor Balance Psychiatric: DENIES: Anxiety, Confusion, Mood changes, Depression, Hallucinations, Agitation, Suicidal Ideation, Homicidal Ideation, Delusions Past Family Social History Allergies: Coded Allergies: felodipine (Unverified Allergy, Severe, 10/12/16) gemfibrozil (Unverified Adverse Reaction, Severe, "DISORIENTED", 10/12/16) morphine (Unverified Adverse Reaction, Severe, VOMITING, 10/12/16) *MDRO Multi-Drug Resistant Organism (Verified Adverse Reaction, Mild, VRE , 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 - 01/09/15 Past Medical History Coronary artery disease status post coronary stenting COPD Diverticula is History of DVT Tobacco abuse Possibly IBS Fibromyalgia History of anoxic brain injury Chronic pain Rheumatoid arthritis History of DVT Depression Avascular necrosis of the hip Hyperlipidemia Hypertension Hypothyroidism Neuropathy Sjogren's syndrome Past Surgical History Hysterectomy Cecilio fundoplication Left hip surgery Pain pump in the right lower back Hysterectomy 1998 Left hip replacement Tonsils/adenoids Reported Medications Reported Meds & Active Scripts Active Reported Dilaudid (Hydromorphone HCl) 2 Mg Tab Unknown Dose PO Q4H PRN Valtrex (Valacyclovir HCl) 500 Mg Tab 500 Mg PO DAILY Protonix (Pantoprazole Sodium) 40 Mg Tab 40 Mg PO DAILY Zofran (Ondansetron HCl) 4 Mg Tab 4 Mg PO Q6HR PRN Xanax (Alprazolam) 0.25 Mg Tab 0.25 Mg PO Q6H PRN Promethazine-Codeine Liq 6.25-10 Mg/5 Ml Syrp 5 Ml PO Q6H PRN Atrovent HFA 12.9 GM Inh (Ipratropium [place]) 17 Mcg/Act Aer 2 Puff INH DAILY PRN Albuterol Neb (Albuterol Sulfate) 2.5 Mg/3 Ml Neb 2.5 Mg NEB Q4HR NEB PRN Pristiq 24 HR (Desvenlafaxine ER 24 HR) 50 Mg Tab 50 Mg PO DAILY Prednisone 5 Mg Tab 5 Mg PO DAILY Percocet (Oxycodone-Acetaminophen) 10-325 mg Tab 1 Tab PO Q4H PRN Lyrica (Pregabalin) 75 Mg Cap 75 Mg PO DAILY Lipitor (Atorvastatin Calcium) 40 Mg Tab 40 Mg PO HS K-Tab (Potassium Chloride) 10 Meq Tab 10 Meq PO DAILY Hydroxyzine HCl 50 Mg Tab 50 Mg PO DAILY Gabapentin 600 Mg Tab 600 Mg PO DAILY Furosemide 40 Mg Tab 40 Mg PO BID PRN [Dilaudid Pump] 5.156 Mg SQ/IV DAILY Plavix (Clopidogrel Bisulfate) 75 Mg Tab 75 Mg PO DAILY Vitamin B-Complex Inj (B-Complex Vitamins Inj) 7-468-4-100-2 Mg/Ml Soln 1 Injection IM MONTHLY Advair Hfa 12 GM Inh (Fluticasone-Salmeterol 12 GM Inh) 115-21 Mcg/Act Aer 2 Puff INH BID Abilify (Aripiprazole) 2 Mg Tab 2 Mg PO DAILY Active Ordered Medications Current Medications Medications (Trade) Dose Ordered Sig/Husam Route PRN Reason Start Time Stop Time Status Last Admin Dose Admin Alprazolam (Xanax) 0.25 mg Q6H PRN PO ANXIETY 10/12/16 23:15 Aripiprazole (Abilify) 2 mg DAILY PO 10/13/16 09:00 Atorvastatin Calcium (Lipitor) 40 mg HS PO 10/13/16 21:00 Clopidogrel Bisulfate (Plavix) 75 mg DAILY PO 10/13/16 09:00 Gabapentin (Neurontin) 600 mg DAILY PO 10/13/16 09:00 Hydroxyzine HCl (Atarax) 50 mg DAILY PO 10/13/16 09:00 Oxycodone/ Acetaminophen (Percocet 10-325 Mg) 1 tab Q4H PRN PO PAIN 1-10 10/12/16 23:15 Pantoprazole Sodium (Protonix) 40 mg DAILY@0600 PO 10/13/16 06:00 Pregabalin (Lyrica) 75 mg DAILY PO 10/13/16 09:00 Valacyclovir HCl (Valtrex) 500 mg DAILY PO 10/13/16 09:00 Patient Own Medication PT OWN MED: (Desvenlafaxine ER 24... DAILY PO 10/13/16 09:00 Future Hold Budesonide/ Formoterol Fumarate (Symbicort 160-4.5 Inh) 1 puff BID INH 10/13/16 09:00 Piperacillin Sod/ Tazobactam Sod 100 ml @ 200 mls/hr Q6H IV 10/13/16 00:00 10/13/16 00:55 Azithromycin 500 mg/Sodium Chloride 250 ml @ 250 mls/hr Q24H IV 10/13/16 00:00 10/13/16 02:01 Methylprednisolone Sodium Succinate (SoluMEDROL INJ) 40 mg Q6H IV 10/13/16 00:00 10/13/16 00:55 Sodium Chloride 1,000 ml @ 84 mls/hr [id number] IV 10/12/16 23:16 Sodium Chloride (NS Flush) 2 ml UNSCH PRN .XX FLUSH AFTER USING IV ACCESS 10/12/16 23:30 Sodium Chloride (NS Flush) 2 ml BID .XX 10/13/16 09:00 Acetaminophen (Tylenol) 650 mg Q6H PRN PO FEVER >101F 10/12/16 23:30 Ondansetron HCl (Zofran Inj) 4 mg Q6H PRN IV NAUSEA OR VOMITING 10/12/16 23:30 Albuterol/ Ipratropium (Duoneb Neb) 1 ampule Q6HR NEB INH 10/13/16 04:00 10/13/16 03:38 Albuterol/ Ipratropium (Duoneb Neb) 1 ampule Q2HR NEB PRN INH WHEEZING 10/12/16 23:30 10/13/16 01:55 Heparin Sodium (Porcine) (Heparin Inj) 5,000 units Q8H SQ 10/13/16 00:00 10/13/16 00:56 Miscellaneous Information 1 Q361D XX 10/12/16 23:30 Chlorhexidine Gluconate (Chlorhexidine 2% Cloth) 3 pack Taper DAILY@04 TOP 10/13/16 04:00 10/09/17 03:59 Chlorhexidine Gluconate (Chlorhexidine 2% Cloth) 3 pack UNSCH PRN TOP HYGIENIC CARE 10/12/16 23:30 Senna/Docusate Sodium (Vale-Colace) 1 tab BID PO 10/13/16 09:00 Magnesium Hydroxide (Milk Of Magnesia Liq) 30 ml Q12H PRN PO MILD - MODERATE CONSTIPATION 10/12/16 23:30 Sennosides (Senokot) 17.2 mg Q12H PRN PO MODERATE - SEVERE CONSTIPATION 10/12/16 23:30 Bisacodyl (Dulcolax Supp) 10 mg DAILY PRN RECTAL SEVERE CONSITIPATION 10/12/16 23:30 Lactulose (Lactulose Liq) 30 ml DAILY PRN PO SEVERE CONSITIPATION 10/12/16 23:30 Pharmacy Profile Note 0 ml @ 0 mls/hr UNSCH OTHER 10/13/16 03:45 Vancomycin HCl 2000 mg/Sodium Chloride 520 ml @ 250 mls/hr NOW ONCE IV 10/13/16 04:00 10/13/16 06:04 Family History No family history of early coronary artery disease or malignancy Social History Continues to smoke 2 packs per day, no history of alcohol or illicit drug abuse Physical Exam Vital Signs Vital Signs Date Time Temp Pulse Resp B/P (MAP) Pulse Ox O2 Delivery O2 Flow Rate FiO2 10/13/16 03:38 93 Nasal Cannula 6.00 10/13/16 03:24 98.6 82 22 113/63 (80) 93 10/13/16 02:51 10/13/16 02:10 93 BiPAP 4.00 35 10/13/16 02:10 81 18 118/67 (84) 93 BiPAP 4.00 35 10/13/16 01:15 98.3 75 18 110/64 (79) 93 BiPAP 4.00 35 10/13/16 01:02 93 35 10/13/16 00:00 98.6 82 22 113/63 (80) 93 10/12/16 23:46 77 20 134/88 (103) 93 BiPAP 10/12/16 23:42 BiPAP 4.00 35 10/12/16 22:55 88 35 10/12/16 21:45 110 20 123/64 (83) 90 BiPAP 10/12/16 21:45 89 BiPAP 10/12/16 20:45 88 35 10/12/16 19:52 115 22 100/64 (76) 92 Nasal Cannula 4.00 10/12/16 19:52 92 Nasal Cannula 4.00 10/12/16 19:22 99.6 110 24 115/75 (88) 84 Physical Exam GENERAL: Elderly looking obese female in moderate respiratory distress SKIN: Warm and dry. HEAD: Normocephalic. EYES: No scleral icterus. No injection or drainage. NECK: Supple, trachea midline. No JVD or lymphadenopathy. CARDIOVASCULAR: Regular rate and rhythm without murmurs, gallops, or rubs. RESPIRATORY: Breath sounds equal bilaterally. No accessory muscle use. Occasional wheezes and rhonchi GASTROINTESTINAL: Abdomen soft, non-tender, nondistended. MUSCULOSKELETAL: No cyanosis, or edema. 3 cm in diameter healing ulcer above her left ankle BACK: Nontender without obvious deformity. NEURO EXAM: GCS: M 6 V5 E4 Mental Status: The patient is alert and oriented to person, place, and time with normal speech. Cranial Nerves: Visual acuity intact bilaterally. Visual larry normal in all quadrants. Pupils are round, reactive to light. Extraocular movements are intact without ptosis. Hearing is normal bilaterally. Voice is normal. Tongue protrudes midline and moves symmetrically. Reflexes: Biceps, patellar, and Achilles are 2/4 bilaterally. No clonus. Sensation: Sensation is intact bilaterally to pain and light touch. Two-point discrimination is intact. Motor: Good muscle tone. Strength is 5/5 bilaterally. Cerebellar: [id number] and jryc-cz-[id number] test normal bilaterally. Laboratory Laboratory Tests Test 10/12/16 19:00 10/12/16 19:40 10/12/16 19:55 10/13/16 00:30 B-Type Natriuretic Peptide 664 White Blood Count 9.4 Red Blood Count 4.99 Hemoglobin 12.2 Hematocrit 39.3 Mean Corpuscular Volume 78.7 Mean Corpuscular Hemoglobin 24.4 Mean Corpuscular Hemoglobin Concent 31.0 Red Cell Distribution Width 19.5 Platelet Count 337 Mean Platelet Volume 7.7 Neutrophils (%) (Auto) 72.1 Lymphocytes (%) (Auto) 19.2 Monocytes (%) (Auto) 6.6 Eosinophils (%) (Auto) 1.2 Basophils (%) (Auto) 0.9 Neutrophils # (Auto) 6.8 Lymphocytes # (Auto) 1.8 Monocytes # (Auto) 0.6 Eosinophils # (Auto) 0.1 Basophils # (Auto) 0.1 CBC Comment AUTO DIFF Differential Comment AUTO DIFF CONFIRMED Platelet Estimate NORMAL Platelet Morphology Comment NORMAL Ovalocytes 1+ Blood Urea Nitrogen 8 Creatinine 0.54 Random Glucose 81 Total Protein 6.3 Albumin 2.9 Calcium Level 7.8 Alkaline Phosphatase 80 Aspartate Amino Transf (AST/SGOT) 22 Alanine Aminotransferase (ALT/SGPT) 15 Total Bilirubin 0.5 Sodium Level 139 Potassium Level 4.0 Chloride Level 101 Carbon Dioxide Level 31.7 Anion Gap 6 Estimat Glomerular Filtration Rate 116 Total Creatine Kinase 40 Troponin I 0.18 Blood Gas Puncture Site RT BRACHIAL Blood Gas Patient Temperature 98.6 Blood Gas HCO3 33 Blood Gas Base Excess 6.0 Blood Gas Oxygen Saturation 87 Arterial Blood pH 7.28 Arterial Blood Partial Pressure CO2 72 Arterial Blood Partial Pressure O2 77 Arterial Blood Oxygen Content 14.4 Arterial Blood Carboxyhemoglobin 5.7 Arterial Blood Methemoglobin 1.2 Blood Gas Hemoglobin 11.7 Oxygen Delivery Device NASAL CANNULA Blood Gas Liter Flow 2.5 Urine Collection Type CATH Urine Color STRAW Urine Turbidity CLEAR Urine pH 5.0 Urine Specific [place] 1.005 Urine Protein NEG Urine Glucose (UA) NEG Urine Ketones NEG Urine Occult Blood NEG Urine Nitrite NEG Urine Bilirubin NEG Urine Leukocyte Esterase NEG Urine Squamous Epithelial Cells 0-5 Urine Hyaline Casts 3-5 Microscopic Urinalysis Comment CATH-CULT NOT IND Date/Time Source Procedure Growth Status 10/13/16 00:30 Blood Peripheral Aerobic Blood Culture Pending Received 10/13/16 00:30 Blood Peripheral Anaerobic Blood Culture Pending Received 10/13/16 00:30 Sputum Expectorated Sputum Gram Stain Pending Ordered 10/13/16 00:30 Sputum Expectorated Sputum Sputum Culture Pending Ordered 10/13/16 00:30 Urine Catheterized Urine Urine Culture Pending Received Result Diagram: 10/12/16193910/12/161939 Imaging Last 24 hours Impressions Chest X-Ray 10/12/161919 Signed Impressions: Service Date/Time: Wednesday, October 12, 2016 20:17 - CONCLUSION: Mild pulmonary venous congestion. Otherwise no significant changes compared to the prior study.. Charles León MD Caprini VTE Risk Assessment Caprini VTE Risk Assessment: Mod/High Risk (score >= 2) Caprini Risk Assessment Model Point Value = 1 Point Value = 2 Point Value = 3 Point Value = 5 Age 41-60 Minor surgery BMI > 25 kg/m2 Swollen legs Varicose veins or History of unexplained or recurrent spontaneous Oral contraceptives or hormone replacement Sepsis (< 1 month) Serious lung disease, including pneumonia (< 1 month) Abnormal pulmonary function Acute myocardial infarction Congestive heart failure (< 1 month) History of inflammatory bowel disease Medical patient at bed rest Age 61-74 Arthroscopic surgery Major open surgery (> 45 min) Laparoscopic surgery (> 45 min) Malignancy Confined to bed (> 72 hours) Immobilizing plaster cast Central venous access Age >= 75 History of VTE Family history of VTE Factor V Leiden Prothrombin [id number] Lupus anticoagulant Anticardiolipin antibodies Elevated serum homocysteine Heparin-induced thrombocytopenia Other congenital or acquired thrombophilia Stroke (< 1 month) Elective arthroplasty Hip, pelvis, or leg fracture Acute spinal cord injury (< 1 month) Prophylaxis Regimen Total Risk Factor Score Risk Level Prophylaxis Regimen 0-1 Low Early ambulation 2 Moderate Order ONE of the following: *Sequential Compression Device (SCD) *Heparin 5000 units SQ BID 3-4 Higher Order ONE of the following medications: *Heparin 5000 units SQ TID *Enoxaparin/Lovenox 40 mg SQ daily (WT < 150 kg, CrCl > 30 mL/min) *Enoxaparin/Lovenox 30 mg SQ daily (WT < 150 kg, CrCl > 10-29 mL/min) *Enoxaparin/Lovenox 30 mg SQ BID (WT < 150 kg, CrCl > 30 mL/min) AND/OR *Sequential Compression Device (SCD) 5 or more Highest Order ONE of the following medications: *Heparin 5000 units SQ TID (Preferred with Epidurals) *Enoxaparin/Lovenox 40 mg SQ daily (WT < 150 kg, CrCl > 30 mL/min) *Enoxaparin/Lovenox 30 mg SQ daily (WT < 150 kg, CrCl > 10-29 mL/min) *Enoxaparin/Lovenox 30 mg SQ BID (WT < 150 kg, CrCl > 30 mL/min) AND *Sequential Compression Device (SCD) Assessment and Plan Assessment and Plan Respiratory failure COPD exacerbation - IV steroid - BiPAP as needed - DuoNeb scheduled and when necessary - Empiric antibiotics - Cultures - Supplemental O2 to keep sats above 92 Chronic pain syndrome - Dilaudid - Percocet - Lyrica - Gabapentin GERD - Protonix Anxiety - Xanax PRN Dyslipidemia - Lipitor Coronary artery disease - Plavix - Series of troponins - EKG reviewed and is without acute ST changes Chronic left leg wound - Wound care consult DVT GI prophylaxis - Subcutaneous heparin and Protonix - Teds and SCDs Critical Care: The total critical care time was 35 minutes. Time to perform other separately billable procedures was not included in the critical care time. Aubrey Hannah MD Oct 13, 2016 04:14
[2016-10-13] MEDS ORDERED: DESVENLAFAXINE 50 MG PO SCH (09:00)
[2016-10-13 09:24] LABS: AUTOMATED NEUTROPHIL # 4.1 TH/MM3 (1.8-7.7); BASOPHIL % 0.3 % (0.0-2.0); HEMATOCRIT 38.7 % (35.0-46.0); HEMO FLAGS DIFF FINAL; LYMPH % 12.5 % (9.0-44.0); LYMPHOCYTE # 0.6 TH/MM3 (1.0-4.8); MEAN CELL VOLUME 79.4 FL (80.0-100.0); MEAN CORPUSCULAR HGB CONC 30.2 % (32.0-36.0); MONO % 1.1 % (0.0-8.0); NEUT % 86.1 % (16.0-70.0); PLATELET COUNT 294 TH/MM3 (150-450); RED BLOOD COUNT 4.87 MIL/MM3 (4.00-5.30); RED CELL DISTRIBUTION WIDTH 20.4 % (11.6-17.2); WHITE BLOOD COUNT 4.8 TH/MM3 (4.0-11.0)
[2016-10-13 09:40] LABS: BICARBONATE 33.3 MEQ/L (21.0-32.0); POTASSIUM 3.9 MEQ/L (3.5-5.1)
[2016-10-13] MEDS: hydrOXYzine HCL 50 MG TAB PO SCH (10:03)
[2016-10-13] MEDS: valACYclovir HCL 500 MG TAB PO SCH (10:03)
[2016-10-13] MEDS: ARIPiprazole 2 MG TAB PO SCH (10:04)
[2016-10-13] MEDS: oxyCODONE/ACETAMINOPHEN 10 MG/325 MG TAB PO PRN ×2 (10:04→21:29)
[2016-10-13] MEDS: GABAPENTIN 300 MG CAP PO SCH (10:04)
[2016-10-13] MEDS: PREGABALIN 75 MG CAP PO SCH (10:04)
[2016-10-13] MEDS: BUDESONIDE-FORMOTEROL 160/4.5 MCG INHALER INH SCH ×2 (10:05→21:00)
[2016-10-13] MEDS: SODIUM CHLORIDE 0.9% FLUSH 10 ML FLUSH SCH ×2 (10:05→21:00)
[2016-10-13] MEDS: CLOPIDOGREL 75 MG TAB PO SCH (10:05)
[2016-10-13] MEDS: DOCUSATE SODIUM 50 MG/SENNA 8.6 MG TAB PO SCH ×2 (10:06→21:00)
--- NOTE | 2016-10-13 12:18 | PD.WCN.NOT ---
Wound Consult Description: Received consult from Doctor Camden for wound management of Left leg ulcer. Communicated with: SUSANA Cordon RN 5th floor [facility] [place] and Doctor Carole Recommendation: Please cleanse L medial lower leg wound with normal saline only and apply Santyl ointment kiesha thickness to wound bed and apply slightly moistened 2x2 gauze pad in wound bed. Secure dressing with dry 4x4 gauze pad , rolled gauze and tape. Please change dressing daily. Additional Information: Patient seen on 5th floor [facility] [place] for evaluation of L leg ulcer. Removed dressing to L medial lower leg in place to reveal ulcer to L lower medial leg gaiter area. Ulcer has an round shape with steep margins. Wound bed presents with ~70% pale red tissue and ~30% thin yellow slough. Wound has no active drainage and is without odor. Wound measures 2cm x 3 cm x slough. Entire L lower leg is noted with erythema and hard non pitting edema.Cleansed wound with normal saline and applied oil emulsion gauze just over wound bed and covered with dry 4x4 gauze pads, secured with rolled gauze and tape. Patient sees outpatient wound care for management of chronic L lower leg wound. When asked if she knows what treatment she is receiving, patient replies,"They are using Santyl."Due to the presence of slough in wound bed Santyl is appropriate. Ultra sound has been ordered for L leg. Juana Hicks [facility] Oct 13, 2016 12:18
--- NOTE | 2016-10-13 12:57 | RADRPT ---
EXAM DATE/TIME: 10/13/2016 11:13 [place] COMPARISON: No previous studies available for comparison. INDICATIONS : Left leg swelling. MEDICAL HISTORY : Hypertension. Chronic obstructive pulmonary disease. Gastroesophageal reflux disease. Emphysema. S leep apnea. Diverticulitis. Ulcer. Hiatal hernia. Arthritis. Measles. MRSA. C-diff. SURGICAL HISTORY : Tonsillectomy. Coronary artery stent. Hysterectomy. Cardiac cath. Hernia repair. Right hip surgery. ENCOUNTER: Initial ACUITY: 1 day PAIN SCORE: 6/10 LOCATION: Left leg. TECHNIQUE: Venous ultrasound of the leg was performed from the inguinal ligament to the proximal calf. Real-natasha e, color Doppler and spectral tracing, compression and augmentation techniques were used. FINDINGS: There is normal compressibility of the deep venous system from the inguinal region to the proximal ca lf. No echogenic clot is seen in the lumen of the common femoral, femoral, popliteal, and posterior tibial veins. There is a normal response of the venous system to proximal and distal augmentation an d respiration. CONCLUSION: Normal examination. Vito Diana MD on October 13, 2016 at 12:54 Board Certified Radiologist. This report was verified electronically.
[2016-10-13] MEDS: VANCOMYCIN INJ 2,000 MG in SODIUM CHLORID 0.9% 500 ML INJ 500 ML IV SCH (15:18)
[2016-10-13] MEDS: ATORVASTATIN 40 MG TAB PO SCH (21:00)
[2016-10-14] VITALS (12 sets, daily range): BP systolic 100–116; BP diastolic 54–59; PULSE 59–100; RESP 22–24; TEMP 97.9–98.7; O2SAT 94–98
[2016-10-14] MEDS: VANCOMYCIN INJ 2,000 MG in SODIUM CHLORID 0.9% 500 ML INJ 500 ML IV SCH ×2 (00:53→13:48)
[2016-10-14] MEDS: oxyCODONE/ACETAMINOPHEN 10 MG/325 MG TAB PO PRN ×2 (00:54→05:36)
[2016-10-14] MEDS: RESP: ALBUTEROL 2.5 MG/IPRATROPIUM 0.5 MG NEB (SCH) INH ×4 (03:16→19:34)
[2016-10-14] MEDS: CHLORHEXIDINE GLUCONATE 2 % 1 PACK (2 CLOTHS) TOP SCH (03:26)
[2016-10-14] MEDS: PANTOPRAZOLE SOD 40 MG DELAYED RELEASE TAB PO SCH (05:00)
[2016-10-14] MEDS: methylPREDNISolone SOD SUCC 40 MG/1 ML VIAL IV SCH ×3 (05:00→17:07)
[2016-10-14] MEDS: PIPERACIL-TAZO 4.5 GM PREMIX 100 ML IV SCH ×3 (05:01→17:08)
[2016-10-14] MEDS: ALPRAZolam 0.25 MG TAB PO PRN (05:36)
[2016-10-14 06:22] LABS: HEMATOCRIT 38.8 % (35.0-46.0); MEAN CELL VOLUME 80.8 FL (80.0-100.0); MEAN CORPUSCULAR HEMOGLOBIN 23.9 PG (27.0-34.0); PLATELET COUNT 301 TH/MM3 (150-450); REVIEW FLAG FINAL; WHITE BLOOD COUNT 7.2 TH/MM3 (4.0-11.0)
[2016-10-14 06:34] LABS: MEAN CORPUSCULAR HGB CONC 29.6 % (32.0-36.0)
[2016-10-14 06:45] LABS: MAGNESIUM 1.8 MG/DL (1.5-2.5); POTASSIUM 3.7 MEQ/L (3.5-5.1)
[2016-10-14 06:50] LABS: INDIRECT BILIRUBIN 0.4 MG/DL (0.0-0.8); TOTAL BILIRUBIN ADULT 0.5 MG/DL (0.2-1.0)
[2016-10-14] MEDS: SODIUM CHLORIDE 0.9% FLUSH 10 ML FLUSH SCH ×2 (08:41→19:48)
[2016-10-14] MEDS: HEPARIN SODIUM - SQ 10,000 UNITS/ML VIAL SQ SCH ×2 (08:41→17:07)
[2016-10-14] MEDS: hydrOXYzine HCL 50 MG TAB PO SCH (08:42)
[2016-10-14] MEDS: CLOPIDOGREL 75 MG TAB PO SCH (08:42)
[2016-10-14] MEDS: ARIPiprazole 2 MG TAB PO SCH (08:42)
[2016-10-14] MEDS: PREGABALIN 75 MG CAP PO SCH (08:42)
[2016-10-14] MEDS: valACYclovir HCL 500 MG TAB PO SCH (08:42)
[2016-10-14] MEDS: DOCUSATE SODIUM 50 MG/SENNA 8.6 MG TAB PO SCH ×2 (08:42→19:48)
[2016-10-14] MEDS: GABAPENTIN 300 MG CAP PO SCH (08:42)
[2016-10-14] MEDS: BUDESONIDE-FORMOTEROL 160/4.5 MCG INHALER INH SCH ×2 (09:00→19:48)
[2016-10-14] MEDS: COLLAGENASE OINT 30 GM TUBE TOPICAL SCH (09:00)
[2016-10-14] MEDS ORDERED: INFLUENZA VIRUS VACCINE (QUADRIVALENT) 0.5 ML SYR IM ONE (10:00)
--- NOTE | 2016-10-14 17:28 | HHI.PR ---
Subjective Remarks Pt denies any chest pain. SOB is improved from admission. Objective Vitals Vital Signs Date Time Temp Pulse Resp B/P (MAP) Pulse Ox O2 Delivery O2 Flow Rate FiO2 10/14/16 16:00 64 10/14/16 14:00 77 10/14/16 12:00 68 10/14/16 12:00 97.9 10/14/16 11:20 18 10/14/16 10:00 81 10/14/16 09:02 98 Nasal Cannula 6.00 10/14/16 08:00 100 10/14/16 08:00 98.0 10/14/16 04:00 98.0 59 24 101/58 (72) 96 10/14/16 00:00 98.6 60 22 100/54 (69) 95 10/13/16 20:00 98.5 69 24 98/54 (69) 94 10/13/16 19:49 91 Nasal Cannula 6.00 10/14/16 10/14/16 10/15/16 15:00 23:00 07:00 Intake Total 700 ml Balance 700 ml IV Total 700 ml Result Diagram: 10/14/16 0613 10/14/16 0613 Imaging Last Impressions Lower Extremity Ultrasound 10/13/16 0000 Signed Impressions: Service Date/Time: Thursday, October 13, 2016 11:13 - CONCLUSION: Normal examination. Vito Diana MD Chest X-Ray 10/12/16 1920 Signed Impressions: Service Date/Time: Wednesday, October 12, 2016 20:17 - CONCLUSION: Mild pulmonary venous congestion. Otherwise no significant changes compared to the prior study.. Charles León MD Objective Remarks GENERAL: This is a well-nourished, well-developed patient, in no apparent distress. CARDIOVASCULAR: Regular rate and rhythm without murmurs, gallops, or rubs. RESPIRATORY: good air movement, scattered b/l wheezing GASTROINTESTINAL: Abdomen soft, non-tender, nondistended. Normal active bowel sounds MUSCULOSKELETAL: Extremities without clubbing, cyanosis, or edema. NEURO: Alert & Oriented x4 to person, place, time, situation. Moves all ext x4 A/P Problem List: (1) COPD (chronic obstructive pulmonary disease) ICD Codes: J44.9 - Chronic obstructive pulmonary disease Status: Acute Plan: - stable on 6L NC, off BiPAP - IV steroids - duonebs - zosyn - repeat CXR in AM (2) Tobacco abuse ICD Codes: Z72.0 - Tobacco use Status: Chronic Plan: - discussed importance of smoking cessation (3) Hypertension ICD Codes: I10 - Hypertension Status: Chronic (4) CAD (coronary artery disease) ICD Codes: I25.10 - Atherosclerotic heart disease of [place] coronary artery without angina pectoris Status: Chronic Plan: - flat troponin pattern - ACS, unlikely - continue current medication regimen (5) Fibromyalgia ICD Codes: M79.7 - Fibromyalgia Status: Acute Plan: - continue current treatment regimen Problem Qualifiers (1) Hypertension: Qualified Codes: I10 - Essential (primary) hypertension (2) CAD (coronary artery disease): Grant Renteria DO Oct 14, 2016 17:28
--- NOTE | 2016-10-14 17:42 | ECHRPT ---
Indication: HEART FAILURE CONCLUSIONS Mildly dilated left ventricle. Wall thickness is normal. The left ventricular systolic function is severely reduced with an estimated ejection fraction in th e range of 30-35%. There is diffuse global hypokinesis with distinct regional wall motion abnormalities (LAD territory) . Doppler parameters are consistent with impaired left ventricular relaxtion (grade 1 diastolic dysfun ction). The right ventricle is mildly dilated. The right ventricular systoilc function is mildly decreased. No atrial level shunt is demonstrated by color flow Doppler interrogation. The aortic root and proximal ascending aorta are not well visualized. Mild mitral valve regurgitation. Mild mitral annular calcification. Aortic valve sclerosis is present. No aortic valve regurgitation. No aortic valve stenosis. There is mild tricuspid valve regurgitation. There is estimated mild pulmonary hypertension present (range 40-50 mmHg). The pulmonary valve is not well visualized. No pulmonary valve regurgitation. The inferior vena cava is dilated. There is less than 50% respiratory change in dimension of the inferior vena cava (abnormal). BP: / HR: Rhythm: Sinus MEASUREMENTS (Male / Female) Normal Values Technical Quality:Poor 2D ECHO LV Diastolic Diameter PLAX 5.9 cm 4.2 - 5.9 / 3.9 - 5.3 cm LV Systolic Diameter PLAX 5.3 cm IVS Diastolic Thickness 0.7 cm 0.6 - 1.0 / 0.6 - 0.9 cm LVPW Diastolic Thickness 0.7 cm 0.6 - 1.0 / 0.6 - 0.9 cm LV Relative Wall Thickness 0.2 LVOT Diameter 1.9 cm Aortic Root Diameter 2.4 cm LA Systolic Diameter LX 4.1 cm 3.0 - 4.0 / 2.7 - 3.8 cm M-MODE AV Cusp Separation MM 1.8 cm DOPPLER AV Peak Velocity 178.0 cm/s AV Peak Gradient 12.7 mmHg AV Mean Gradient 7.0 mmHg AV Velocity Time Integral 33.7 cm LVOT Peak Velocity 93.2 cm/s LVOT Peak Gradient 3.5 mmHg LVOT Velocity Time Integral 18.9 cm AV Area Cont Eq vti 1.6 cm AV Area Cont Eq pk 1.5 cm Mitral E Point Velocity 73.5 cm/s Mitral A Point Velocity 90.8 cm/s Mitral E to A Ratio 0.8 LV E' Lateral Velocity 7.7 cm/s Mitral E to LV E' Lateral Ratio 9.5 LV E' Septal Velocity 4.5 cm/s Mitral E to LV E' Septal Ratio 16.5 TR Peak Velocity 290.0 cm/s TR Peak Gradient 33.6 mmHg PV Peak Velocity 75.9 cm/s PV Peak Gradient 2.3 mmHg FINDINGS LEFT VENTRICLE Mildly dilated left ventricle. Wall thickness is normal. The left ventricular systolic function is severely reduced with an estimated ejection fraction in th e range of 30-35%. There is diffuse global hypokinesis with distinct regional wall motion abnormalities (LAD territory) . Doppler parameters are consistent with impaired left ventricular relaxtion (grade 1 diastolic dysfun ction). RIGHT VENTRICLE The right ventricle is mildly dilated. The right ventricular systoilc function is mildly decreased. LEFT ATRIUM The left atrial size is normal. RIGHT ATRIUM The right atrial size is normal. ATRIAL SEPTUM No atrial level shunt is demonstrated by color flow Doppler interrogation. AORTA The aortic root and proximal ascending aorta are not well visualized. MITRAL VALVE Structurally normal mitral valve. Mild mitral valve regurgitation. Mild mitral annular calcification. AORTIC VALVE Aortic valve sclerosis is present. No aortic valve regurgitation. No aortic valve stenosis. TRICUSPID VALVE Structurally normal tricuspid valve. There is mild tricuspid valve regurgitation. There is estimated mild pulmonary hypertension present (range 40-50 mmHg). PULMONARY VALVE The pulmonary valve is not well visualized. No pulmonary valve regurgitation. VESSELS The inferior vena cava is dilated. There is less than 50% respiratory change in dimension of the inferior vena cava (abnormal). PERICARDIUM No pericardial effusion. Itz Osorio MD, FACC (Electronically Signed) Final Date:14 October 2016 17:42
[2016-10-14] MEDS: ATORVASTATIN 40 MG TAB PO SCH (19:48)
[2016-10-14] MEDS: REMOVE OLD NICODERM (NICOTINE) PATCH T-DERMAL SCH (20:58)
[2016-10-15] VITALS (20 sets, daily range): BP systolic 123–186; BP diastolic 63–81; PULSE 64–96; RESP 14–29; TEMP 97.7–98.5; O2SAT 92–100
[2016-10-15] MEDS: PIPERACIL-TAZO 4.5 GM PREMIX 100 ML IV SCH ×2 (00:05→06:08)
[2016-10-15] MEDS: HEPARIN SODIUM - SQ 10,000 UNITS/ML VIAL SQ SCH ×3 (00:06→15:55)
[2016-10-15] MEDS: methylPREDNISolone SOD SUCC 40 MG/1 ML VIAL IV SCH ×2 (00:06→06:08)
[2016-10-15] MEDS: AZITHROMYCIN INJ 500 MG in SODIUM CHLOR 0.9% 250 ML INJ 250 ML IV SCH (00:06)
[2016-10-15] MEDS ORDERED: PHARMACY ORDERED LAB ONE (00:45)
[2016-10-15] MEDS: ALPRAZolam 0.25 MG TAB PO PRN ×2 (02:03→09:47)
[2016-10-15] MEDS: RESP: ALBUTEROL 2.5 MG/IPRATROPIUM 0.5 MG NEB (SCH) INH ×3 (02:55→21:46)
[2016-10-15] MEDS: CHLORHEXIDINE GLUCONATE 2 % 1 PACK (2 CLOTHS) TOP SCH (04:00)
[2016-10-15 05:34] LABS: AUTOMATED NEUTROPHIL # 6.1 TH/MM3 (1.8-7.7); BASOPHIL % 0.2 % (0.0-2.0); HEMATOCRIT 38.4 % (35.0-46.0); HEMO FLAGS DIFF FINAL; LYMPH % 3.8 % (9.0-44.0); LYMPHOCYTE # 0.2 TH/MM3 (1.0-4.8); MEAN CELL VOLUME 80.4 FL (80.0-100.0); MEAN CORPUSCULAR HEMOGLOBIN 23.9 PG (27.0-34.0); MONO % 2.4 % (0.0-8.0); NEUT % 93.6 % (16.0-70.0); PLATELET COUNT 264 TH/MM3 (150-450); RED BLOOD COUNT 4.77 MIL/MM3 (4.00-5.30); RED CELL DISTRIBUTION WIDTH 20.4 % (11.6-17.2); WHITE BLOOD COUNT 6.5 TH/MM3 (4.0-11.0)
[2016-10-15 05:36] LABS: MEAN CORPUSCULAR HGB CONC 29.7 % (32.0-36.0)
[2016-10-15] MEDS: PANTOPRAZOLE SOD 40 MG DELAYED RELEASE TAB PO SCH (06:08)
[2016-10-15 06:11] LABS: BICARBONATE 30.8 MEQ/L (21.0-32.0); MAGNESIUM 2.1 MG/DL (1.5-2.5); POTASSIUM 3.8 MEQ/L (3.5-5.1)
[2016-10-15] MEDS: COLLAGENASE OINT 30 GM TUBE TOPICAL SCH (09:00)
[2016-10-15] MEDS: SODIUM CHLORIDE 0.9% FLUSH 10 ML FLUSH SCH ×2 (09:00→21:30)
--- NOTE | 2016-10-15 09:07 | RADRPT ---
EXAM DATE/TIME: 10/15/2016 08:34 [place] COMPARISON: CHEST PA & LAT, October 12, 2016, 20:17. INDICATIONS : Short of breath. MEDICAL HISTORY : Chronic obstructive pulmonary disease. Hypertension SURGICAL HISTORY : Coronary artery stent. ENCOUNTER: Subsequent ACUITY: 4 - 6 days PAIN SCORE: 0/10 LOCATION: Bilateral chest FINDINGS: The heart is enlarged. There is no overt congestive failure. Linear parenchymal opacity is present in the left base probably atelectasis. There is no pleural effusion. CONCLUSION: Developing linear opacity left base probably atelectasis. There is no failure. Bulmaro Rodriguez MD FACR on October 15, 2016 at 9:05 Board Certified Radiologist. This report was verified electronically.
[2016-10-15] MEDS: BUDESONIDE-FORMOTEROL 160/4.5 MCG INHALER INH SCH (09:45)
[2016-10-15] MEDS: NICOTINE 14 MG/24 HR PATCH T-DERMAL SCH (09:46)
[2016-10-15] MEDS: hydrOXYzine HCL 50 MG TAB PO SCH (09:47)
[2016-10-15] MEDS: CLOPIDOGREL 75 MG TAB PO SCH (09:47)
[2016-10-15] MEDS: PREGABALIN 75 MG CAP PO SCH (09:47)
[2016-10-15] MEDS: DOCUSATE SODIUM 50 MG/SENNA 8.6 MG TAB PO SCH ×2 (09:47→21:28)
[2016-10-15] MEDS: valACYclovir HCL 500 MG TAB PO SCH (09:47)
[2016-10-15] MEDS: GABAPENTIN 300 MG CAP PO SCH (09:47)
[2016-10-15] MEDS: ARIPiprazole 2 MG TAB PO SCH (09:47)
--- NOTE | 2016-10-15 10:11 | HHI.PR ---
Subjective Remarks Pt denies any chest pain. SOB improving slowly having difficult time producing mucus Objective Vitals Vital Signs Date Time Temp Pulse Resp B/P (MAP) Pulse Ox O2 Delivery O2 Flow Rate FiO2 10/15/16 09:29 92 Nasal Cannula 5.00 10/15/16 06:00 64 10/15/16 04:00 98.4 67 20 143/68 (93) 97 10/15/16 04:00 67 10/15/16 02:00 96 10/15/16 00:00 98.3 65 27 123/63 (83) 95 10/15/16 00:00 65 10/14/16 22:00 69 10/14/16 20:00 98.5 98 115/59 (77) 96 10/14/16 20:00 98 10/14/16 19:34 97 Nasal Cannula 6.00 10/14/16 18:00 79 10/14/16 16:00 98.7 64 23 116/57 (76) 94 10/14/16 16:00 98.7 10/14/16 16:00 64 10/14/16 14:00 77 10/14/16 12:00 68 10/14/16 12:00 97.9 10/14/16 11:20 18 Result Diagram: 10/15/16 0510 10/15/16 0510 Other Results Laboratory Tests Test 10/12/16 19:00 10/12/16 19:40 10/12/16 19:55 10/13/16 00:30 B-Type Natriuretic Peptide 664 PG/ML White Blood Count 9.4 TH/MM3 Red Blood Count 4.99 MIL/MM3 Hemoglobin 12.2 GM/DL Hematocrit 39.3 % Mean Corpuscular Volume 78.7 FL Mean Corpuscular Hemoglobin 24.4 PG Mean Corpuscular Hemoglobin Concent 31.0 % Red Cell Distribution Width 19.5 % Platelet Count 337 TH/MM3 Mean Platelet Volume 7.7 FL Neutrophils (%) (Auto) 72.1 % Lymphocytes (%) (Auto) 19.2 % Monocytes (%) (Auto) 6.6 % Eosinophils (%) (Auto) 1.2 % Basophils (%) (Auto) 0.9 % Neutrophils # (Auto) 6.8 TH/MM3 Lymphocytes # (Auto) 1.8 TH/MM3 Monocytes # (Auto) 0.6 TH/MM3 Eosinophils # (Auto) 0.1 TH/MM3 Basophils # (Auto) 0.1 TH/MM3 CBC Comment AUTO DIFF Differential Comment AUTO DIFF CONFIRMED Platelet Estimate NORMAL Platelet Morphology Comment NORMAL Ovalocytes 1+ Blood Urea Nitrogen 8 MG/DL Creatinine 0.54 MG/DL Random Glucose 81 MG/DL Total Protein 6.3 GM/DL Albumin 2.9 GM/DL Calcium Level 7.8 MG/DL Alkaline Phosphatase 80 U/L Aspartate Amino Transf (AST/SGOT) 22 U/L Alanine Aminotransferase (ALT/SGPT) 15 U/L Total Bilirubin 0.5 MG/DL Sodium Level 139 MEQ/L Potassium Level 4.0 MEQ/L Chloride Level 101 MEQ/L Carbon Dioxide Level 31.7 MEQ/L Anion Gap 6 MEQ/L Estimat Glomerular Filtration Rate 116 ML/MIN Total Creatine Kinase 40 U/L Troponin I 0.18 NG/ML Blood Gas Puncture Site RT BRACHIAL Blood Gas Patient Temperature 98.6 Blood Gas HCO3 33 mmol/L Blood Gas Base Excess 6.0 mmol/L Blood Gas Oxygen Saturation 87 % Arterial Blood pH 7.28 Arterial Blood Partial Pressure CO2 72 mmHG Arterial Blood Partial Pressure O2 77 mmHG Arterial Blood Oxygen Content 14.4 Vol % Arterial Blood Carboxyhemoglobin 5.7 % Arterial Blood Methemoglobin 1.2 % Blood Gas Hemoglobin 11.7 G/DL Oxygen Delivery Device NASAL CANNULA Blood Gas Liter Flow 2.5 L/M Urine Collection Type CATH Urine Color STRAW Urine Turbidity CLEAR Urine pH 5.0 Urine Specific [place] 1.005 Urine Protein NEG mg/dL Urine Glucose (UA) NEG mg/dL Urine Ketones NEG mg/dL Urine Occult Blood NEG Urine Nitrite NEG Urine Bilirubin NEG Urine Leukocyte Esterase NEG Urine Squamous Epithelial Cells 0-5 /hpf Urine Hyaline Casts 3-5 /lpf Microscopic Urinalysis Comment CATH-CULT NOT IND Test 10/13/16 03:30 10/13/16 07:52 10/14/16 06:13 10/15/16 05:10 Nasal Screen MRSA (PCR) MRSA NOT DETECTED White Blood Count 4.8 TH/MM3 7.2 TH/MM3 6.5 TH/MM3 Red Blood Count 4.87 MIL/MM3 4.80 MIL/MM3 4.77 MIL/MM3 Hemoglobin 11.7 GM/DL 11.5 GM/DL 11.4 GM/DL Hematocrit 38.7 % 38.8 % 38.4 % Mean Corpuscular Volume 79.4 FL 80.8 FL 80.4 FL Mean Corpuscular Hemoglobin 24.0 PG 23.9 PG 23.9 PG Mean Corpuscular Hemoglobin Concent 30.2 % 29.6 % 29.7 % Red Cell Distribution Width 20.4 % 20.0 % 20.4 % Platelet Count 294 TH/MM3 301 TH/MM3 264 TH/MM3 Mean Platelet Volume 7.5 FL 7.4 FL 7.6 FL Neutrophils (%) (Auto) 86.1 % 93.6 % Lymphocytes (%) (Auto) 12.5 % 3.8 % Monocytes (%) (Auto) 1.1 % 2.4 % Eosinophils (%) (Auto) 0.0 % 0.0 % Basophils (%) (Auto) 0.3 % 0.2 % Neutrophils # (Auto) 4.1 TH/MM3 6.1 TH/MM3 Lymphocytes # (Auto) 0.6 TH/MM3 0.2 TH/MM3 Monocytes # (Auto) 0.1 TH/MM3 0.2 TH/MM3 Eosinophils # (Auto) 0.0 TH/MM3 0.0 TH/MM3 Basophils # (Auto) 0.0 TH/MM3 0.0 TH/MM3 CBC Comment DIFF FINAL DIFF FINAL Differential Comment Blood Urea Nitrogen 10 MG/DL 18 MG/DL 17 MG/DL Creatinine 0.60 MG/DL 0.85 MG/DL 0.77 MG/DL Random Glucose 134 MG/DL 197 MG/DL 362 MG/DL Calcium Level 7.7 MG/DL 7.9 MG/DL 8.4 MG/DL Sodium Level 140 MEQ/L 139 MEQ/L 138 MEQ/L Potassium Level 3.9 MEQ/L 3.7 MEQ/L 3.8 MEQ/L Chloride Level 100 MEQ/L 99 MEQ/L 100 MEQ/L Carbon Dioxide Level 33.3 MEQ/L 32.0 MEQ/L 30.8 MEQ/L Anion Gap 7 MEQ/L 8 MEQ/L 7 MEQ/L Estimat Glomerular Filtration Rate 102 ML/MIN 68 ML/MIN 77 ML/MIN Troponin I 0.10 NG/ML 0.06 NG/ML Total Protein 6.0 GM/DL Albumin 2.8 GM/DL Phosphorus Level 2.8 MG/DL Magnesium Level 1.8 MG/DL 2.1 MG/DL Alkaline Phosphatase 65 U/L Aspartate Amino Transf (AST/SGOT) 6 U/L Alanine Aminotransferase (ALT/SGPT) 13 U/L Total Bilirubin 0.5 MG/DL Direct Bilirubin 0.1 MG/DL Lactic Acid Level 2.0 mmol/L Indirect Bilirubin 0.4 MG/DL Random Vancomycin Level 23.9 COMMENT Imaging Last Impressions Chest X-Ray 10/15/16 0800 Signed Impressions: Service Date/Time: Saturday, October 15, 2016 08:34 - CONCLUSION: Developing linear opacity left base probably atelectasis. There is no failure. Bulmaro Rodriguez MD FACR Lower Extremity Ultrasound 10/13/16 0000 Signed Impressions: Service Date/Time: Thursday, October 13, 2016 11:13 - CONCLUSION: Normal examination. Vito Diana MD Last Impressions Lower Extremity Ultrasound 10/13/16 0000 Signed Impressions: Service Date/Time: Thursday, October 13, 2016 11:13 - CONCLUSION: Normal examination. Vito Diana MD Chest X-Ray 10/12/16 1920 Signed Impressions: Service Date/Time: Wednesday, October 12, 2016 20:17 - CONCLUSION: Mild pulmonary venous congestion. Otherwise no significant changes compared to the prior study.. Charles León MD Objective Remarks GENERAL: This is a obese 61 year old female patient, in no apparent distress. SKIN: chronic ulceration medial aspect left ankle CARDIOVASCULAR: Regular rate and rhythm without murmurs, gallops, or rubs. RESPIRATORY: poor air movement, b/l expiratory wheezing throughout GASTROINTESTINAL: Abdomen soft, non-tender, nondistended. Normal active bowel sounds MUSCULOSKELETAL: Extremities without clubbing, cyanosis, or edema. NEURO: Alert & Oriented x4 to person, place, time, situation. Moves all ext x4 A/P Problem List: (1) COPD (chronic obstructive pulmonary disease) ICD Codes: J44.9 - Chronic obstructive pulmonary disease Status: Acute Plan: - stable on 5L NC, wean to maintain oxygen saturation greater than 92% - IV steroids increase to solumedrol 60 mg IV Q6H - duonebs - add Mucomyst neb Q6H - add Mucinex 1200 mg PO - DC vancomycin and Zosyn, continue azithromycin - repeat CXR this AM reviewed- showing probable atelectasis- continue IS and Acapella (2) Tobacco abuse ICD Codes: Z72.0 - Tobacco use Status: Chronic Plan: - discussed importance of smoking cessation (3) Hypertension ICD Codes: I10 - Hypertension Status: Chronic (4) CAD (coronary artery disease) ICD Codes: I25.10 - Atherosclerotic heart disease of [place] coronary artery without angina pectoris Status: Chronic Plan: - flat troponin pattern - ACS, unlikely - continue current medication regimen (5) Fibromyalgia ICD Codes: M79.7 - Fibromyalgia Status: Acute Plan: - continue current treatment regimen (6) Cardiomyopathy ICD Codes: I42.9 - Cardiomyopathy, unspecified Plan: - Echocardiogram reviewed EF 30-35% - discussed with Dr. Osorio, patient known to him - patient denies chest pain - no further intervention at this time follows with Dr. Osorio as an outpatient Assessment and Plan Patient examined. Assessment and plan formulated with Radha Oneal PA-C. I agree with the above. 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 Pt known to have cardiomyopathy. - continue current cardiac regimen - anticipate pt will need continued hospitalization for the next 3-4 days. Problem Qualifiers (1) Hypertension: Qualified Codes: I10 - Essential (primary) hypertension (2) CAD (coronary artery disease): Sanjana Schultz Oct 15, 2016 10:11 Grant Renteria DO Oct 16, 2016 00:21
[2016-10-15] MEDS: INSULIN ASPART SUPPLEMENTAL SCALE SQ SCH ×3 (11:00→21:27)
[2016-10-15] MEDS: guaiFENesin E.R. 600 MG TAB PO SCH ×2 (11:39→21:28)
[2016-10-15] MEDS: methylPREDNISolone SOD SUCC 125 MG/2 ML VIAL IV SCH ×2 (11:44→15:55)
[2016-10-15] MEDS ORDERED: VANCOMYCIN 1,500 MG/NS 500 ML IV SCH ×2 (12:00)
[2016-10-15] MEDS: oxyCODONE/ACETAMINOPHEN 10 MG/325 MG TAB PO PRN ×2 (15:55→21:30)
[2016-10-15] MEDS: RESP: ACETYLCYSTEINE 10% 30 ML NEB NEB SCH ×2 (16:00→21:45)
[2016-10-15] MEDS: ATORVASTATIN 40 MG TAB PO SCH (21:28)
[2016-10-15] MEDS: REMOVE OLD NICODERM (NICOTINE) PATCH T-DERMAL SCH (21:35)
[2016-10-16] VITALS (9 sets, daily range): BP systolic 134–166; BP diastolic 64–89; PULSE 61–80; RESP 18–20; TEMP 97.5–98; O2SAT 95–100
[2016-10-16] MEDS: AZITHROMYCIN INJ 500 MG in SODIUM CHLOR 0.9% 250 ML INJ 250 ML IV SCH ×2
[2016-10-16] MEDS ORDERED: ENOXAPARIN SODIUM 100 MG/ML SYRINGE SQ ONE (00:30)
[2016-10-16] MEDS: methylPREDNISolone SOD SUCC 125 MG/2 ML VIAL IV SCH ×4 (00:56→18:18)
[2016-10-16] MEDS: HEPARIN SODIUM - SQ 10,000 UNITS/ML VIAL SQ SCH ×3 (00:57→15:02)
[2016-10-16] MEDS: RESP: ALBUTEROL 2.5 MG/IPRATROPIUM 0.5 MG NEB (SCH) INH ×4 (02:53→21:24)
[2016-10-16] MEDS: RESP: ACETYLCYSTEINE 10% 30 ML NEB NEB SCH ×3 (04:00→10:00)
[2016-10-16] MEDS: CHLORHEXIDINE GLUCONATE 2 % 1 PACK (2 CLOTHS) TOP SCH (04:00)
[2016-10-16] MEDS: INSULIN ASPART SUPPLEMENTAL SCALE SQ SCH ×4 (06:44→20:35)
[2016-10-16] MEDS: PANTOPRAZOLE SOD 40 MG DELAYED RELEASE TAB PO SCH (06:45)
[2016-10-16] MEDS: oxyCODONE/ACETAMINOPHEN 10 MG/325 MG TAB PO PRN ×3 (06:46→18:19)
[2016-10-16 06:52] LABS: BLOOD GAS BASE EXCESS 3.4 mmol/L (-2-2); BLOOD GAS CARBOXYHEMOGLOBIN 1.3 % (0-4); BLOOD GAS HCO3 28 mmol/L (22-26); BLOOD GAS METHEMOGLOBIN 0.7 % (0-2); BLOOD GAS O2 HGB SATURATION 96 % (90-100); BLOOD GAS OXYGEN CONTENT 16.2 Vol % (12.0-20.0); BLOOD GAS PCO2 50 mmHg (38-42); BLOOD GAS PO2 102 mmHg (61-120); BLOOD GAS TOTAL HGB 11.9 G/DL (12.0-16.0); TEMP CORR TO 98.6
[2016-10-16 06:53] LABS: CRITICAL VALUE NO; DRAW SITE LT RADIAL; FIO2 40 %; LITER FLOW 5 L/M; NUMBER OF ARTERIAL PUNCTURES 1; OXYGEN DEVICE NASAL CANNULA; STAT NO; ULNAR PULSE PRESENT
[2016-10-16] MEDS: DOCUSATE SODIUM 50 MG/SENNA 8.6 MG TAB PO SCH ×2 (09:00→20:34)
[2016-10-16] MEDS: COLLAGENASE OINT 30 GM TUBE TOPICAL SCH ×2 (09:00→18:42)
[2016-10-16] MEDS: CLOPIDOGREL 75 MG TAB PO SCH (09:34)
[2016-10-16] MEDS: PREGABALIN 75 MG CAP PO SCH (09:35)
[2016-10-16] MEDS: ARIPiprazole 2 MG TAB PO SCH (09:35)
[2016-10-16] MEDS: valACYclovir HCL 500 MG TAB PO SCH (09:35)
[2016-10-16] MEDS: NICOTINE 14 MG/24 HR PATCH T-DERMAL SCH (09:35)
[2016-10-16] MEDS: guaiFENesin E.R. 600 MG TAB PO SCH ×2 (09:35→20:32)
[2016-10-16] MEDS: hydrOXYzine HCL 50 MG TAB PO SCH (09:35)
[2016-10-16] MEDS: GABAPENTIN 300 MG CAP PO SCH (09:35)
[2016-10-16] MEDS: ALPRAZolam 0.25 MG TAB PO PRN ×2 (09:39→18:19)
[2016-10-16] MEDS: SODIUM CHLORIDE 0.9% FLUSH 10 ML FLUSH SCH ×2 (09:43→20:33)
[2016-10-16] MEDS: BUDESONIDE-FORMOTEROL 160/4.5 MCG INHALER INH SCH ×2 (09:44→20:43)
[2016-10-16] MEDS ORDERED: GLUCAGON 1 MG/ML VIAL OTHER PRN (15:45)
[2016-10-16] MEDS ORDERED: DEXTROSE 50% IN WATER 50 ML VIAL(D50) IV PRN (15:45)
--- NOTE | 2016-10-16 16:28 | HHI.PR ---
Subjective Remarks Patient sleeping in chair able to awake with physical stimuli reports breathing is better, denies cough requesting wound care for chronic left ankle wound Objective Vitals Vital Signs Date Time Temp Pulse Resp B/P (MAP) Pulse Ox O2 Delivery O2 Flow Rate FiO2 10/16/16 12:07 97.6 72 19 134/64 (87) 98 10/16/16 08:30 61 10/16/16 08:07 97.5 80 19 166/83 (110) 98 10/16/16 08:01 95 Nasal Cannula 5.00 10/16/16 04:00 97.6 68 20 144/89 (107) 100 10/16/16 00:00 97.5 78 20 145/78 (100) 97 10/15/16 20:00 98.4 76 22 166/79 (108) 97 10/15/16 17:18 93 Nasal Cannula 5.00 10/16/16 10/16/16 10/17/16 14:59 22:59 06:59 Intake Total 250 ml Balance 250 ml IV Total 250 ml Result Diagram: 10/15/1650910/15/16 05 Other Results Laboratory Tests Test 10/14/16 06:13 10/15/16 05:10 10/16/16 06:30 White Blood Count 7.2 TH/MM3 6.5 TH/MM3 Red Blood Count 4.80 MIL/MM3 4.77 MIL/MM3 Hemoglobin 11.5 GM/DL 11.4 GM/DL Hematocrit 38.8 % 38.4 % Mean Corpuscular Volume 80.8 FL 80.4 FL Mean Corpuscular Hemoglobin 23.9 PG 23.9 PG Mean Corpuscular Hemoglobin Concent 29.6 % 29.7 % Red Cell Distribution Width 20.0 % 20.4 % Platelet Count 301 TH/MM3 264 TH/MM3 Mean Platelet Volume 7.4 FL 7.6 FL Blood Urea Nitrogen 18 MG/DL 17 MG/DL Creatinine 0.85 MG/DL 0.77 MG/DL Random Glucose 197 MG/DL 362 MG/DL Total Protein 6.0 GM/DL Albumin 2.8 GM/DL Calcium Level 7.9 MG/DL 8.4 MG/DL Phosphorus Level 2.8 MG/DL Magnesium Level 1.8 MG/DL 2.1 MG/DL Alkaline Phosphatase 65 U/L Aspartate Amino Transf (AST/SGOT) 6 U/L Alanine Aminotransferase (ALT/SGPT) 13 U/L Total Bilirubin 0.5 MG/DL Direct Bilirubin 0.1 MG/DL Sodium Level 139 MEQ/L 138 MEQ/L Potassium Level 3.7 MEQ/L 3.8 MEQ/L Chloride Level 99 MEQ/L 100 MEQ/L Carbon Dioxide Level 32.0 MEQ/L 30.8 MEQ/L Anion Gap 8 MEQ/L 7 MEQ/L Estimat Glomerular Filtration Rate 68 ML/MIN 77 ML/MIN Lactic Acid Level 2.0 mmol/L Indirect Bilirubin 0.4 MG/DL Troponin I 0.06 NG/ML Neutrophils (%) (Auto) 93.6 % Lymphocytes (%) (Auto) 3.8 % Monocytes (%) (Auto) 2.4 % Eosinophils (%) (Auto) 0.0 % Basophils (%) (Auto) 0.2 % Neutrophils # (Auto) 6.1 TH/MM3 Lymphocytes # (Auto) 0.2 TH/MM3 Monocytes # (Auto) 0.2 TH/MM3 Eosinophils # (Auto) 0.0 TH/MM3 Basophils # (Auto) 0.0 TH/MM3 CBC Comment DIFF FINAL Differential Comment Random Vancomycin Level 23.9 COMMENT Blood Gas Puncture Site LT RADIAL Blood Gas Patient Temperature 98.6 Blood Gas HCO3 28 mmol/L Blood Gas Base Excess 3.4 mmol/L Blood Gas Oxygen Saturation 96 % Arterial Blood pH 7.37 Arterial Blood Partial Pressure CO2 50 mmHg Arterial Blood Partial Pressure O2 102 mmHg Arterial Blood Oxygen Content 16.2 Vol % Arterial Blood Carboxyhemoglobin 1.3 % Arterial Blood Methemoglobin 0.7 % Blood Gas Hemoglobin 11.9 G/DL Oxygen Delivery Device NASAL CANNULA Blood Gas Liter Flow 5 L/M Blood Gas Inspired Oxygen 40 % Imaging Last Impressions Chest X-Ray 10/15/16 0800 Signed Impressions: Service Date/Time: Saturday, October 15, 2016 08:34 - CONCLUSION: Developing linear opacity left base probably atelectasis. There is no failure. Bulamro Rodriguez MD FACR Lower Extremity Ultrasound 10/13/16 0000 Signed Impressions: Service Date/Time: Thursday, October 13, 2016 11:13 - CONCLUSION: Normal examination. Vito Diana MD Last Impressions Lower Extremity Ultrasound 10/13/16 0000 Signed Impressions: Service Date/Time: Thursday, October 13, 2016 11:13 - CONCLUSION: Normal examination. Vito Diana MD Chest X-Ray 10/12/16 1920 Signed Impressions: Service Date/Time: Wednesday, October 12, 2016 20:17 - CONCLUSION: Mild pulmonary venous congestion. Otherwise no significant changes compared to the prior study.. Charles León MD Objective Remarks GENERAL: This is a obese 61 year old female patient, in no apparent distress. SKIN: chronic ulceration medial aspect left ankle CARDIOVASCULAR: Regular rate and rhythm without murmurs, gallops, or rubs. RESPIRATORY: poor air movement, b/l expiratory wheezing throughout GASTROINTESTINAL: Abdomen soft, non-tender, nondistended. Normal active bowel sounds MUSCULOSKELETAL: Extremities without clubbing, cyanosis, or edema. NEURO: Alert & Oriented x4 to person, place, time, situation. Moves all ext x4 A/P Problem List: (1) COPD (chronic obstructive pulmonary disease) ICD Codes: J44.9 - Chronic obstructive pulmonary disease Status: Acute Plan: - stable on 5L NC, wean to maintain oxygen saturation greater than 92% - IV steroids increase to solumedrol 60 mg IV Q6H - duonebs - add Mucomyst neb Q6H - add Mucinex 1200 mg PO - DC vancomycin and Zosyn, continue azithromycin - repeat CXR this AM reviewed- showing probable atelectasis- continue IS and Acapella (2) Tobacco abuse ICD Codes: Z72.0 - Tobacco use Status: Chronic Plan: - discussed importance of smoking cessation (3) Hypertension ICD Codes: I10 - Hypertension Status: Chronic (4) CAD (coronary artery disease) ICD Codes: I25.10 - Atherosclerotic heart disease of [place] coronary artery without angina pectoris Status: Chronic Plan: - flat troponin pattern - ACS, unlikely - continue current medication regimen (5) Fibromyalgia ICD Codes: M79.7 - Fibromyalgia Status: Acute Plan: - continue current treatment regimen (6) Cardiomyopathy ICD Codes: I42.9 - Cardiomyopathy, unspecified Plan: - Echocardiogram reviewed EF 30-35% - discussed with Dr. Osorio, patient known to him - patient denies chest pain - no further intervention at this time follows with Dr. Osorio as an outpatient (7) Wound of left ankle ICD Codes: S91.002A - Unspecified open wound, left ankle, initial encounter Plan: Patient has chronic wound Left ankle medical aspect continue outpatient wound care- cleanse with saline, treat with santyl then apply dry Telfa dressing daily consult wound care continue outpatient wound care after DC (8) Hyperglycemia ICD Codes: R73.9 - Hyperglycemia Status: Acute Plan: uncontrolled worsened by steroid use increase to medium dose SSI add Levemir 10 Units BID one time Novolog 20 Units subcutaneous x 1 now continue to monitor accuchecks Hemoglobin A1C in AM Assessment and Plan Patient examined. Assessment and plan formulated with Sanjaan Schultz PA-C. I agree with the above. Pt's air movement was improved today with less wheezing. Consider changing solumedrol to PO prednisone 10/17 if pt continues to improve. Smoking cessation will be campbell to pt's recovery after discharge. We again discussed the importance of smoking cessation. Problem Qualifiers (1) Hypertension: Qualified Codes: I10 - Essential (primary) hypertension (2) CAD (coronary artery disease): Sanjana Schultz Oct 16, 2016 16:28 Grant Renteria DO Oct 16, 2016 21:32
[2016-10-16] MEDS ORDERED: INSULIN ASPART 1,000 UNITS/10 ML VIAL SQ ONE (17:00)
[2016-10-16] MEDS: ATORVASTATIN 40 MG TAB PO SCH (20:32)
[2016-10-16] MEDS: INSULIN DETEMIR 100 UNITS/ML VIAL SQ SCH (20:34)
[2016-10-16] MEDS: REMOVE OLD NICODERM (NICOTINE) PATCH T-DERMAL SCH (20:43)
[2016-10-17] VITALS (7 sets, daily range): BP systolic 129–166; BP diastolic 61–80; PULSE 70–89; RESP 20–23; TEMP 97.7–98.4; O2SAT 87–99
[2016-10-17] MEDS: oxyCODONE/ACETAMINOPHEN 10 MG/325 MG TAB PO PRN ×4 (01:37→20:12)
[2016-10-17] MEDS: methylPREDNISolone SOD SUCC 125 MG/2 ML VIAL IV SCH ×3 (01:38→14:02)
[2016-10-17] MEDS: HEPARIN SODIUM - SQ 10,000 UNITS/ML VIAL SQ SCH ×4 (01:38→15:10)
[2016-10-17] MEDS: RESP: ALBUTEROL 2.5 MG/IPRATROPIUM 0.5 MG NEB (SCH) INH (03:15)
[2016-10-17] MEDS: CHLORHEXIDINE GLUCONATE 2 % 1 PACK (2 CLOTHS) TOP SCH (04:00)
[2016-10-17] MEDS: PANTOPRAZOLE SOD 40 MG DELAYED RELEASE TAB PO SCH (06:05)
[2016-10-17] MEDS: INSULIN ASPART SUPPLEMENTAL SCALE SQ SCH ×4 (06:07→20:18)
[2016-10-17] MEDS: DOCUSATE SODIUM 50 MG/SENNA 8.6 MG TAB PO SCH ×2 (09:00→20:23)
[2016-10-17] MEDS: COLLAGENASE OINT 30 GM TUBE TOPICAL SCH ×2 (09:00→09:18)
[2016-10-17] MEDS: valACYclovir HCL 500 MG TAB PO SCH (09:18)
[2016-10-17] MEDS: NICOTINE 14 MG/24 HR PATCH T-DERMAL SCH (09:18)
[2016-10-17] MEDS: GABAPENTIN 300 MG CAP PO SCH (09:18)
[2016-10-17] MEDS: PREGABALIN 75 MG CAP PO SCH (09:18)
[2016-10-17] MEDS: ARIPiprazole 2 MG TAB PO SCH (09:18)
[2016-10-17] MEDS: guaiFENesin E.R. 600 MG TAB PO SCH ×2 (09:18→20:12)
[2016-10-17] MEDS: CLOPIDOGREL 75 MG TAB PO SCH (09:18)
[2016-10-17] MEDS: hydrOXYzine HCL 50 MG TAB PO SCH (09:19)
[2016-10-17] MEDS: ALPRAZolam 0.25 MG TAB PO PRN ×2 (09:19→20:12)
[2016-10-17] MEDS: INSULIN DETEMIR 100 UNITS/ML VIAL SQ SCH ×2 (09:26→20:16)
[2016-10-17] MEDS: SODIUM CHLORIDE 0.9% FLUSH 10 ML FLUSH SCH ×2 (09:27→20:16)
[2016-10-17] MEDS: BUDESONIDE-FORMOTEROL 160/4.5 MCG INHALER INH SCH ×2 (09:27→20:16)
[2016-10-17] MEDS: RESP: ACETYLCYSTEINE 10% 30 ML NEB NEB SCH (10:00)
[2016-10-17 12:48] LABS: HEMOGLOBIN A1a 1.9 %; HEMOGLOBIN Ao 82.4 %; HEMOGLOBIN LA1C 2.3 %; HEMOGLOBIN P3 4.1 %
[2016-10-17] MEDS ORDERED: INSULIN ASPART 1,000 UNITS/10 ML VIAL SQ ONE (14:15)
[2016-10-17] MEDS ORDERED: PILL SPLITTER OTHER PRN (14:45)
--- NOTE | 2016-10-17 14:52 | HHI.PR ---
Subjective Remarks Patient sitting up on side of bed- reports breathing feels about the same Asking when she will be discharged is worried about her dogs at home Objective Vitals Vital Signs Date Time Temp Pulse Resp B/P (MAP) Pulse Ox O2 Delivery O2 Flow Rate FiO2 10/17/16 12:00 98.0 70 20 133/75 (94) 97 10/17/16 08:24 99 Nasal Cannula 3.00 10/17/16 08:00 98.2 74 20 129/61 (83) 87 10/17/16 04:00 98.4 82 23 164/69 (100) 95 10/17/16 00:00 97.7 73 22 134/71 (92) 93 10/16/16 21:27 95 Nasal Cannula 4.00 10/16/16 20:00 97.5 71 18 142/77 (98) 95 10/16/16 16:08 98.0 80 19 153/75 (101) 98 10/17/16 10/17/16 10/18/16 14:59 22:59 06:59 # Voids 3 # Bowel Movements 1 Result Diagram: 10/15/16 0510 10/17/16 1310 Other Results Laboratory Tests Test 10/15/16 05:10 10/16/16 06:30 10/17/16 13:10 White Blood Count 6.5 TH/MM3 Red Blood Count 4.77 MIL/MM3 Hemoglobin 11.4 GM/DL Hematocrit 38.4 % Mean Corpuscular Volume 80.4 FL Mean Corpuscular Hemoglobin 23.9 PG Mean Corpuscular Hemoglobin Concent 29.7 % Red Cell Distribution Width 20.4 % Platelet Count 264 TH/MM3 Mean Platelet Volume 7.6 FL Neutrophils (%) (Auto) 93.6 % Lymphocytes (%) (Auto) 3.8 % Monocytes (%) (Auto) 2.4 % Eosinophils (%) (Auto) 0.0 % Basophils (%) (Auto) 0.2 % Neutrophils # (Auto) 6.1 TH/MM3 Lymphocytes # (Auto) 0.2 TH/MM3 Monocytes # (Auto) 0.2 TH/MM3 Eosinophils # (Auto) 0.0 TH/MM3 Basophils # (Auto) 0.0 TH/MM3 CBC Comment DIFF FINAL Differential Comment Blood Urea Nitrogen 17 MG/DL Creatinine 0.77 MG/DL Random Glucose 362 MG/DL 291 MG/DL Calcium Level 8.4 MG/DL Magnesium Level 2.1 MG/DL Sodium Level 138 MEQ/L Potassium Level 3.8 MEQ/L Chloride Level 100 MEQ/L Carbon Dioxide Level 30.8 MEQ/L Anion Gap 7 MEQ/L Estimat Glomerular Filtration Rate 77 ML/MIN Hemoglobin A1c 6.8 % Random Vancomycin Level 23.9 COMMENT Blood Gas Puncture Site LT RADIAL Blood Gas Patient Temperature 98.6 Blood Gas HCO3 28 mmol/L Blood Gas Base Excess 3.4 mmol/L Blood Gas Oxygen Saturation 96 % Arterial Blood pH 7.37 Arterial Blood Partial Pressure CO2 50 mmHg Arterial Blood Partial Pressure O2 102 mmHg Arterial Blood Oxygen Content 16.2 Vol % Arterial Blood Carboxyhemoglobin 1.3 % Arterial Blood Methemoglobin 0.7 % Blood Gas Hemoglobin 11.9 G/DL Oxygen Delivery Device NASAL CANNULA Blood Gas Liter Flow 5 L/M Blood Gas Inspired Oxygen 40 % Imaging Last Impressions Chest X-Ray 10/15/16 0800 Signed Impressions: Service Date/Time: Saturday, October 15, 2016 08:34 - CONCLUSION: Developing linear opacity left base probably atelectasis. There is no failure. Bulmaro Rodriguez MD FACR Lower Extremity Ultrasound 10/13/16 0000 Signed Impressions: Service Date/Time: Thursday, October 13, 2016 11:13 - CONCLUSION: Normal examination. Vito Diana MD Last Impressions Lower Extremity Ultrasound 10/13/16 0000 Signed Impressions: Service Date/Time: Thursday, October 13, 2016 11:13 - CONCLUSION: Normal examination. Vito Diana MD Chest X-Ray 10/12/16 1920 Signed Impressions: Service Date/Time: Wednesday, October 12, 2016 20:17 - CONCLUSION: Mild pulmonary venous congestion. Otherwise no significant changes compared to the prior study.. Charles León MD Objective Remarks GENERAL: This is a obese 61 year old female patient, in no apparent distress. SKIN: chronic ulceration medial aspect left ankle dressing dry and intact CARDIOVASCULAR: Regular rate and rhythm without murmurs, gallops, or rubs. RESPIRATORY: poor air movement, b/l expiratory wheezing scattered throughout NEURO: Alert & Oriented x4 to person, place, time, situation. Moves all ext x4 A/P Problem List: (1) COPD (chronic obstructive pulmonary disease) ICD Codes: J44.9 - Chronic obstructive pulmonary disease Status: Acute Plan: - stable on 3- 4L NC, wean to maintain oxygen saturation greater than 92 % (patient is on 2.5 L oxygen via NC at home) - IV steroids DC's 10/17/16 (patient's breathing improving and blood sugars are uncontrolled) - Start Prednisone 30mg by mouth daily in AM - duonebs - Mucinex 1200 mg PO - DC vancomycin and Zosyn, - azithromycin completed 10/16/16 - repeat CXR 10/15/16 reviewed- showing probable atelectasis- continue IS and Acapella - patient reports blood tinged sputum with occasional cough- CT chest ordered and pending (2) Tobacco abuse ICD Codes: Z72.0 - Tobacco use Status: Chronic Plan: - discussed importance of smoking cessation - nicotine patch in place (3) Hypertension ICD Codes: I10 - Hypertension Status: Chronic (4) CAD (coronary artery disease) ICD Codes: I25.10 - Atherosclerotic heart disease of [place] coronary artery without angina pectoris Status: Chronic Plan: - flat troponin pattern - ACS, unlikely - continue current medication regimen (5) Fibromyalgia ICD Codes: M79.7 - Fibromyalgia Status: Acute Plan: - continue current treatment regimen (6) Cardiomyopathy ICD Codes: I42.9 - Cardiomyopathy, unspecified Plan: - Echocardiogram reviewed EF 30-35% - discussed with Dr. Osorio, patient known to him - patient denies chest pain - no further intervention at this time follows with Dr. Osorio as an outpatient (7) Wound of left ankle ICD Codes: S91.002A - Unspecified open wound, left ankle, initial encounter Plan: Patient has chronic wound Left ankle medical aspect continue outpatient wound care- cleanse with saline, treat with santyl then apply dry Telfa dressing daily consult wound care continue outpatient wound care after DC (8) Diabetes ICD Codes: E11.9 - Type 2 diabetes mellitus without complications Status: Acute Plan: uncontrolled blood sugar worsened by steroid use newly dx DM HA1c 6.8 continue medium dose SSI continue Levemir 10 Units BID one time Novolog 20 Units subcutaneous x 1 now continue to monitor accuchecks Solumedrol IV DC'd 10/17/16 Start prednisone 30 mg by mouth BID in AM Assessment and Plan Patient examined. Assessment and plan formulated with Radha Oneal PA-C. I agree with the above. Pt's breathing continues to improved. Good air movement on auscultation. Pt still with some b/l expiratory wheezing but this is improved from 10/16/16. Pt's case complicated by steroid induced hyperglycemia. Change solumedrol to PO prednisone. If breathing continues to improve and blood sugar are controlled, then anticipate d/c to home with C in 1-2 days Again, pt counselled on the importance of smoking cessation. Ideally, I would also like to see pt's regimen of narcotics and benzodiazepines trimmed in the outpt setting. Problem Qualifiers (1) Hypertension: Qualified Codes: I10 - Essential (primary) hypertension (2) CAD (coronary artery disease): Sanjana Schultz Oct 17, 2016 14:52 Grant Renteria DO Oct 17, 2016 23:28
--- NOTE | 2016-10-17 17:16 | RADRPT ---
EXAM DATE/TIME: 10/17/2016 16:54 [facility] COMPARISON: CHEST PA & LAT, October 15, 2016, 8:34. INDICATIONS : Cough, abnormal chest x-ray with developing linear opacity in the left lung base. CHF. RADIATION DOSE: 9.01 CTDIvol (mGy) MEDICAL HISTORY : Cardiovascular disease. Hypertension. Brain injury, DVT, RA SURGICAL HISTORY : Hysterectomy. ENCOUNTER: Initial ACUITY: 2 days PAIN SCALE: 0/10 LOCATION: chest TECHNIQUE: Volumetric scanning of the chest was performed. Using automated exposure control and adjustment of t he mA and/or kV according to patient size, radiation dose was kept as low as reasonably achievable to obtain optimal diagnostic quality images. DICOM format image data is available electronically for r eview and comparison. Follow-up recommendations for detected pulmonary nodules are based at a minimum on nodule size and pa tient risk factors according to Fleischner Society Guidelines. FINDINGS: LUNGS: There is no consolidation or pneumothorax. No concerning pulmonary nodule is visualized. Mild atelec tasis is present in both lung bases. There is no definite infiltrate. PLEURAE: There is no pleural thickening or pleural effusion. MEDIASTINUM: The heart and great vessels demonstrate no acute abnormality. There is no mediastinal or hilar lymph adenopathy. There is mild cardiomegaly and coronary artery calcifications. AXILLAE: Within normal limits. No lymphadenopathy. MUSCULOSKELETAL: Within normal limits for patient age. MISCELLANEOUS: The visualized upper abdominal organs demonstrate no acute abnormality. CONCLUSION: 1. Atelectasis in both lung bases with no consolidative infiltrate. 2. Mild cardiomegaly and coronary calcifications. Herbert Sloan MD on October 17, 2016 at 17:07 Board Certified Radiologist. This report was verified electronically.
[2016-10-17] MEDS ORDERED: PHARMACY ORDERED LAB ONE (17:45)
[2016-10-17] MEDS: ATORVASTATIN 40 MG TAB PO SCH (20:12)
[2016-10-17] MEDS: REMOVE OLD NICODERM (NICOTINE) PATCH T-DERMAL SCH (20:19)
[2016-10-17] MEDS ORDERED: methylPREDNISolone SOD SUCC 125 MG/2 ML VIAL IV PUSH SCH (21:00)
[2016-10-17] MEDS: RESP: ALBUTEROL 2.5 MG/IPRATROPIUM 0.5 MG NEB (PRN) INH ×2 (21:28→21:29)
[2016-10-18] VITALS: BP 150/81; PULSE 82; RESP 19; TEMP 97.8; O2SAT 95
[2016-10-18] MEDS: oxyCODONE/ACETAMINOPHEN 10 MG/325 MG TAB PO PRN ×2 (00:47→06:18)
[2016-10-18 04:00] VITALS: BP 164/81; PULSE 73; RESP 21; TEMP 97.3; O2SAT 97
[2016-10-18] MEDS: CHLORHEXIDINE GLUCONATE 2 % 1 PACK (2 CLOTHS) TOP SCH (04:00)
[2016-10-18] MEDS: RESP: ACETYLCYSTEINE 10% 30 ML NEB NEB SCH ×2 (04:00→10:00)
[2016-10-18] MEDS: PANTOPRAZOLE SOD 40 MG DELAYED RELEASE TAB PO SCH (06:17)
[2016-10-18] MEDS: ALPRAZolam 0.25 MG TAB PO PRN (06:17)
[2016-10-18] MEDS: INSULIN ASPART SUPPLEMENTAL SCALE SQ SCH (06:21)
[2016-10-18 08:00] VITALS: BP 165/79; PULSE 78; RESP 18; TEMP 98.6; O2SAT 97
[2016-10-18] MEDS: HEPARIN SODIUM - SQ 10,000 UNITS/ML VIAL SQ SCH ×2 (08:00)
[2016-10-18] MEDS: SODIUM CHLORIDE 0.9% FLUSH 10 ML FLUSH SCH (08:46)
[2016-10-18] MEDS: BUDESONIDE-FORMOTEROL 160/4.5 MCG INHALER INH SCH (08:46)
[2016-10-18] MEDS: ARIPiprazole 2 MG TAB PO SCH (08:47)
[2016-10-18] MEDS: PREGABALIN 75 MG CAP PO SCH (08:47)
[2016-10-18] MEDS: GABAPENTIN 300 MG CAP PO SCH (08:47)
[2016-10-18] MEDS: DOCUSATE SODIUM 50 MG/SENNA 8.6 MG TAB PO SCH (08:47)
[2016-10-18] MEDS: valACYclovir HCL 500 MG TAB PO SCH (08:47)
[2016-10-18] MEDS: hydrOXYzine HCL 50 MG TAB PO SCH (08:47)
[2016-10-18] MEDS: CLOPIDOGREL 75 MG TAB PO SCH (08:48)
[2016-10-18] MEDS: NICOTINE 14 MG/24 HR PATCH T-DERMAL SCH (08:48)
[2016-10-18] MEDS: guaiFENesin E.R. 600 MG TAB PO SCH (08:48)
[2016-10-18] MEDS: COLLAGENASE OINT 30 GM TUBE TOPICAL SCH (08:48)
[2016-10-18] MEDS: INSULIN DETEMIR 100 UNITS/ML VIAL SQ SCH (08:55)
[2016-10-18] MEDS ORDERED: predniSONE 20 MG TAB PO SCH (09:00)
--- NOTE | 2016-10-18 09:51 | HHI.PR ---
Subjective Remarks pt eager for d/c says she has been ambulating in room and to bathroom she feels strong enough and wants to go home. Objective Vitals heart reg lung scattered exp wheeze. abd s/nt ext no edema Vital Signs Date Time Temp Pulse Resp B/P (MAP) Pulse Ox O2 Delivery O2 Flow Rate FiO2 10/18/16 08:00 98.6 78 18 165/79 (107) 97 10/18/16 04:00 97.3 73 21 164/81 (108) 97 10/18/16 00:00 97.8 82 19 150/81 (104) 95 10/17/16 20:00 98.2 89 20 166/80 (108) 96 10/17/16 16:00 97.7 84 20 146/71 (96) 98 10/17/16 12:00 98.0 70 20 133/75 (94) 97 Result Diagram: 10/15/16 0510 10/17/16 1310 Imaging Last Impressions Chest X-Ray 10/15/16 0800 Signed Impressions: Service Date/Time: Saturday, October 15, 2016 08:34 - CONCLUSION: Developing linear opacity left base probably atelectasis. There is no failure. Bulmaro Rodriguez MD FACR Lower Extremity Ultrasound 10/13/16 0000 Signed Impressions: Service Date/Time: Thursday, October 13, 2016 11:13 - CONCLUSION: Normal examination. Vito Diana MD Last Impressions Lower Extremity Ultrasound 10/13/16 0000 Signed Impressions: Service Date/Time: Thursday, October 13, 2016 11:13 - CONCLUSION: Normal examination. Vito Diana MD Chest X-Ray 10/12/16 1920 Signed Impressions: Service Date/Time: Wednesday, October 12, 2016 20:17 - CONCLUSION: Mild pulmonary venous congestion. Otherwise no significant changes compared to the prior study.. Charles León MD A/P Problem List: (1) COPD (chronic obstructive pulmonary disease) ICD Codes: J44.9 - Chronic obstructive pulmonary disease Status: Acute Plan: - stable on 2 L. NC, (patient is on 2.5 L oxygen via NC at home) -Pt eager for d/c today. offered further inpt care but she kindly refused. - cont nebs. wean steroids. - f/u pcp closely - C ordered. (2) Tobacco abuse ICD Codes: Z72.0 - Tobacco use Status: Chronic Plan: - discussed importance of smoking cessation - nicotine patch in place (3) Hypertension ICD Codes: I10 - Hypertension Status: Chronic (4) CAD (coronary artery disease) ICD Codes: I25.10 - Atherosclerotic heart disease of [place] coronary artery without angina pectoris Status: Chronic Plan: - flat troponin pattern - ACS, unlikely - continue current medication regimen (5) Fibromyalgia ICD Codes: M79.7 - Fibromyalgia Status: Acute Plan: - continue current treatment regimen (6) Cardiomyopathy ICD Codes: I42.9 - Cardiomyopathy, unspecified Plan: - Echocardiogram reviewed EF 30-35% - discussed with Dr. Osorio, patient known to him - patient denies chest pain - no further intervention at this time follows with Dr. Osorio as an outpatient (7) Wound of left ankle ICD Codes: S91.002A - Unspecified open wound, left ankle, initial encounter Plan: Patient has chronic wound Left ankle medical aspect continue outpatient wound care- cleanse with saline, treat with santyl then apply dry Telfa dressing daily consult wound care continue outpatient wound care after DC (8) Diabetes ICD Codes: E11.9 - Type 2 diabetes mellitus without complications Status: Acute Plan: uncontrolled blood sugar worsened by steroid use newly dx DM HA1c 6.8 continue medium dose SSI continue Levemir 10 Units BID one time Novolog 20 Units subcutaneous x 1 now continue to monitor accuchecks Solumedrol IV DC'd 10/17/16 Start prednisone 30 mg by mouth BID in AM Problem Qualifiers (1) Hypertension: Qualified Codes: I10 - Essential (primary) hypertension (2) CAD (coronary artery disease): Jeremiah Lacy MD Oct 18, 2016 09:51
[2016-10-18] MEDS ORDERED: PRED10 PO (09:58)
[2016-10-18] MEDS ORDERED: GUAI600T11 PO (09:58)
--- NOTE | 2016-10-18 09:58 | HHI.DCPOC ---
Discharge Care Plan Diagnosis: (1) Chronic obstructive pulmonary disease with acute exacerbation Goals to Promote Your Health * To prevent worsening of your condition and complications * To maintain your health at the optimal level Directions to Meet Your Goals Take your medications as prescribed Follow your dietary instruction Follow activity as directed Keep your appointments as scheduled Take your immunizations and boosters as scheduled If your symptoms worsen call your PCP, if no PCP go to Urgent Care Center or Emergency Room Smoking is Dangerous to Your Health. Avoid second hand smoke Call the 24-hour hour crisis hotline for domestic abuse at Jeremiah Lacy MD Oct 18, 2016 09:58
--- NOTE | 2016-10-18 10:01 | HHI.FF ---
Face to Face Verification Diagnosis: (1) COPD (chronic obstructive pulmonary disease) Physical Therapy Order: Evaluate and Treat, Improve ambulation Home Health Nursing Order: Medical education Signs/symptoms of disease process Medication education-adverse effect Nursing assessment with vital signs I have seen patient Amanda Willingham on 10/18/16. My clinical findings support the need for the requested home health care services because: Patient has SOB I certify that my clinical findings support that this patient is homebound because: Hx COPD- exertion dyspnea/weakness Jeremiah Lacy MD Oct 18, 2016 10:01
[2016-10-18 10:13] LABS: HEMATOCRIT 37.1 % (35.0-46.0); MEAN CELL VOLUME 78.1 FL (80.0-100.0); MEAN CORPUSCULAR HEMOGLOBIN 23.6 PG (27.0-34.0); MEAN CORPUSCULAR HGB CONC 30.2 % (32.0-36.0); PLATELET COUNT 219 TH/MM3 (150-450); RED BLOOD COUNT 4.74 MIL/MM3 (4.00-5.30); RED CELL DISTRIBUTION WIDTH 20.2 % (11.6-17.2); REVIEW FLAG FINAL; WHITE BLOOD COUNT 10.2 TH/MM3 (4.0-11.0)
[2016-10-18 10:41] LABS: HDL CHOLESTEROL 63.6 MG/DL (40.0-60.0)
== END 2016-10-18 10:26 | disposition home health service (06) | DRG 191 ==
LOC: PHED 19:02 → PHEDA 22:03 → HIMN 10-13 03:20 → N04B 10-15 15:04
PROVIDERS: ADMIT Surgery Surgical Critical Care; ATTEND Surgery Surgical Critical Care
DX: J44.1 Chronic obstructive pulmonary disease with (acute) exacerbation (principal); G93.1 Anoxic brain damage, not elsewhere classified; J96.11 Chronic respiratory failure with hypoxia; I42.9 Cardiomyopathy, unspecified; I50.9 Heart failure, unspecified; I11.0 Hypertensive heart disease with heart failure; E11.65 Type 2 diabetes mellitus with hyperglycemia; K57.92 Diverticulitis of intestine, part unspecified, without perforation or abscess without bleeding; J98.11 Atelectasis; M35.00 Sjogren syndrome, unspecified; E03.9 Hypothyroidism, unspecified; E78.5 Hyperlipidemia, unspecified; F17.210 Nicotine dependence, cigarettes, uncomplicated; G47.30 Sleep apnea, unspecified; G89.4 Chronic pain syndrome; I25.10 Atherosclerotic heart disease of native coronary artery without angina pectoris; M79.7 Fibromyalgia; K21.9 Gastro-esophageal reflux disease without esophagitis; M06.9 Rheumatoid arthritis, unspecified; M85.80 Other specified disorders of bone density and structure, unspecified site; S81.802A Unspecified open wound, left lower leg, initial encounter; T38.0X5A Adverse effect of glucocorticoids and synthetic analogues, initial encounter; Z79.4 Long term (current) use of insulin; Z86.718 Personal history of other venous thrombosis and embolism; Z90.710 Acquired absence of both cervix and uterus; Z95.5 Presence of coronary angioplasty implant and graft; Z96.642 Presence of left artificial hip joint; Z99.81 Dependence on supplemental oxygen; F41.8 Other specified anxiety disorders
CPT/HCPCS: 36600; 71020; 71250; 80048; 80053; 80061; 80076; 80202; 81001; 82550; 82805; 82947; 82948; 83036; 83605; 83735; 83880; 84100; 84484; 85025; 85027; 87040; 87086; 87641; 93306; 93971; 94002; 94003; 94150; 94640; 94664; 94667; 96374; 96375; J0456; J1120; J1644; J1815; J1940; J2543; J2920; J2930; J3370; J7030; J7040; J7050; J7512; J7608